=== PATIENT | male | born 1935 | race Caucasian/White ===

== ENCOUNTER 2019-03-15 11:57 | Inpatient (IN) | payer OTHER, SELFPAY ==
[2019-03-15] VITALS (8 sets, daily range): BP systolic 108–161; BP diastolic 64–86; PULSE 76–118; RESP 16–24; TEMP 36–36.5; O2SAT 91–96; BMI 16.5
--- NOTE | 2019-03-15 12:22 | XR_ITS ---
WS: [id number] Portable AP upright chest, 03/15/2019 Clinical Data: SOB Comparison: Portable chest, 05/04/2016. Findings: No nodules, masses or effusions are seen. The heart is normal. The pulmonary vascularity is not increased. There is patchy opacity in the right lower lobe with a possible small loculated right effusion. The left lung is clear. The diaphragms are flattened. The aortic arch and descending aorta are tortuous. XR/XR chest 1V portable [id number] Impression: 1. Patchy opacity in right lower lobe most consistent with pneumonia. 2. Hyperinflation.
--- NOTE | 2019-03-15 12:49 | ED_ITS ---
Entered by Howie Jenkins, acting as scribe for Marky Maier DO HPI - SOB/Dyspnea General: Chief Complaint: Shortness of Breath/Dyspnea Stated Complaint: low sats Time Seen by Provider: 03/15/19 12:53 History of Present Illness: HPI Narrative: 83 yo male presents with shortness of breath, he was seen at [place] today and they noticed that his o2 sats were low. Pt states that this has been going on for about 3 weeks and it has recently gotten worse. Pt states that his inhaler prescription was recently changed. MD elicited complaint: shortness of breath Timing: progressively worsening Severity: moderate Exacerbating factors: exertion and movement Relieving factors: oxygen and rest Associated symptoms: Deny abdominal pain, chest pain, dizziness, extremity pain, fever(s), nausea, orthopnea, palpitations, polydipsia, polyuria, syncope or vomiting Treatment prior to arrival: oxygen Review of Systems Const: Reports: fatigue and malaise; Denies: fever, chills or body aches Eyes: Denies: change in vision or blurry vision ENMT: Denies: throat pain, oral sores/lesions, dental pain, nasal discharge or nasal congestion Card: Denies: chest pain, palpitations, irregular heart rhythm, edema, syncope, shortness of breath on exertion, shortness of breath when lying down or leg pain with exertion Resp: Reports: shortness of breath and productive cough; Denies: non-productive cough or wheezing GI: Denies: abdominal pain, nausea, vomiting, vomiting blood, coffee grounds in vomit, difficulty swallowing, heartburn/indigestion, diarrhea, constipation, cramping, blood in stool or black tarry stool : Denies: flank pain, difficulty urinating, painful urination, urinary frequency, urinary urgency, urinary incontinence or blood in urine Musc: Denies: neck pain, back pain, extremity pain, extremity swelling, joint pain or joint swelling Skin/Breast: Denies: rash, itching or redness Neuro: Denies: headache, numbness in extremities, weakness in extremities, changes in sensation, lack of coordination, difficulty walking, frequent falls, dizziness, vertigo or confusion Psych: Denies: anxiety, depression, loss of interest, visual hallucinations, auditory hallucinations, suicidal ideation or homicidal ideation Endo: Denies: excessive urination, excessive thirst, tired all the time or cold intolerance Alex/Lymph: Denies: easy bruising, easy bleeding, petechiae, enlarged lymph nodes or tender lymph nodes PFSH ED PFSH: Statuses (acute, chronic, etc) shown below reflect problem list status as previously entered and may not be historically accurate Medical History (Updated 03/22/19 @ 08:43 by Marky Maier DO) Abdominal aortic aneurysm (Acute) BPH (benign prostatic hyperplasia) (Acute) COPD (chronic obstructive pulmonary disease) (Acute) Muscular deconditioning (Acute ~03/15/19) Protein calorie malnutrition (Acute) Right lower lobe pneumonia (Acute) Skin cancer (Acute) Skin graft (allograft) (autograft) failure (Acute) Surgical History (Updated 03/15/19 @ 15:49 by Alfred Durán MD) H/O hernia repair (Acute) Family History (Updated 03/15/19 @ 15:50 by Alfred Durán MD) Father Cancer Prostate cancer Son Cancer Non-small cell lung cancer Social History (Updated 03/15/19 @ 15:50 by Alfred Durán MD) Smoking and tobacco status: former smoker Alcohol intake: former Caregiver/support person: Yes Lives independently: No Household members: family Physical Exam Const: COMMON NORMALS: average body habitus, oriented x3 and alert GENERAL APPEARANCE: cooperative and comfortable ORIENTATION/CONSCIOUSNESS: Yes awake, Yes oriented to person and Yes oriented to place HENMT: COMMON NORMALS: normocephalic, head/scalp atraumatic, EAC's normal, TM's normal bilaterally, external nose normal, moist oral mucous membranes and oropharynx normal HEAD & SCALP: normocephalic and atraumatic NOSE: external nose normal EXTERNAL AUDITORY CANAL: EAC's normal TYMPANIC MEMBRANE: TM's normal bilaterally MOUTH: oral and palatal mucosa normal, lip normal and tongue normal THROAT: posterior oropharynx normal and tonsils normal Neck/C-Spine: COMMON NORMALS: full ROM, no lymphadenopathy, supple, no meningeal signs and thyroid normal THYROID: thyroid normal and asymmetrical Lymph: LYMPHATIC: no lymphadenopathy noted Resp: EFFORT & INSPECTION: Yes respiratory distress (mild) AUSCULTATION: rhonchi throughout, wheezes throughout and diminished lung sounds Cardio: COMMON NORMALS: regular rate and regular rhythm RATE: regular rate RHYTHM: regular rhythm HEART SOUNDS: no murmurs GI: COMMON NORMALS: normal to inspection, nondistended, normoactive bowel sounds, soft to palpation and no hepatosplenomegaly PALPATION: Yes soft and Yes no hepatosplenomegaly : COMMON NORMALS: Yes no CVA tenderness BLADDER/KIDNEY EXAM: Yes no CVA tenderness Back/Pelvis: COMMON NORMALS: no CVA tenderness LUMBAR SPINE/LOWER BACK: Yes normal to inspection Extremity: COMMON NORMALS: no clubbing, cyanosis or edema, no calf tenderness and no pedal edema Neuro: COMMON NORMALS: oriented x3 SENSORIUM/ORIENTATION: Yes alert, Yes oriented to person and Yes oriented to place MENINGEAL SIGNS: Yes no meningeal signs Skin: COMMON NORMALS: no rashes or lesions noted and skin turgor normal GENERAL SKIN EXAM: no rashes or lesions noted and turgor normal Course Vital Signs: Vital signs: Vital Signs Temperature 97.9 F 03/19/19 15:18 Pulse Rate 102 H 03/19/19 16:03 Respiratory Rate 20 H 03/19/19 16:03 Blood Pressure 102/69 03/19/19 15:18 Pulse Oximetry 94 03/19/19 16:03 MDM - SOB/Dyspnea Lab Data: Labs: Lab Results 03/15/19 03/15/19 03/15/19 Range/Units 12:58 12:58 12:58 WBC 9.2 (4.0-10.0) 10^3/ uL RBC 5.23 (4.1-5.3) 10^6/u L Hgb 15.6 (11.7-16.6) g/dL Hct 47.1 (42.0-52.0) % MCV 90.1 (80-94) fL MCH 29.8 (28.0-34.0) pg MCHC 33.1 (30.0-36.0) g/dL RDW 12.4 (12.1-15.1) % Plt Count 485 H (130-400) 10^3/c mm MPV 10.2 (7.4-10.4) fL Neut % (Auto) 78.1 % Lymph % (Auto) 10.3 % Mchenry % (Auto) 8.3 % Eos % (Auto) 1.7 % Baso % (Auto) 0.5 % Neut # (Auto) 7.2 (1.8-7.7) 10^3/u L Lymph # (Auto) 1.0 (0.8-4.8) 10^3/u L Mchenry # (Auto) 0.8 (0.2-0.9) 10^3/u L Eos # (Auto) 0.2 (0.0-0.8) 10^3/u L Baso # (Auto) 0.1 (0.0-0.1) 10^3/u L Nucleated RBC % (a uto) 0 % Nucleated RBCs # 0.0 /100WBC Sodium 137 (136-145) mmol/L Potassium 4.0 (3.5-5.1) mmol/L Chloride 96 L (98-107) mmol/L Carbon Dioxide 27 (22-29) mmol/L Anion Gap 18.0 (5-19) BUN 12 (8-23) mg/dL Creatinine 0.9 (0.7-1.2) mg/dL Glucose 103 (74-106) mg/dL Lactate (0.5-2.2) mmol/L Calcium 10.1 (8.8-10.2) mg/Dl Total Bilirubin 0.7 (0.15-1.2) mg/dL AST 26 (0-40) U/L ALT 28 (0-41) U/L Alkaline Phosphata se 67 (40-130) IU/L Troponin T Baselin e 38 H (0-15) ng/mL NT-Pro-B Natriuret Pep 468 H (0-450) pg/mL Total Protein 7.1 (6.6-8.7) g/dL Albumin 4.2 (3.5-5.2) g/dL Globulin 2.9 (1.3-4.6) g/dL Influenza Type A A g (Negative) POC Influenza B Ag (Negative) 03/15/19 03/15/19 Range/Units 13:00 13:20 WBC (4.0-10.0) 10^3/ uL RBC (4.1-5.3) 10^6/u L Hgb (11.7-16.6) g/dL Hct (42.0-52.0) % MCV (80-94) fL MCH (28.0-34.0) pg MCHC (30.0-36.0) g/dL RDW (12.1-15.1) % Plt Count (130-400) 10^3/c mm MPV (7.4-10.4) fL Neut % (Auto) % Lymph % (Auto) % Mchenry % (Auto) % Eos % (Auto) % Baso % (Auto) % Neut # (Auto) (1.8-7.7) 10^3/u L Lymph # (Auto) (0.8-4.8) 10^3/u L Mchenry # (Auto) (0.2-0.9) 10^3/u L Eos # (Auto) (0.0-0.8) 10^3/u L Baso # (Auto) (0.0-0.1) 10^3/u L Nucleated RBC % (a uto) % Nucleated RBCs # /100WBC Sodium (136-145) mmol/L Potassium (3.5-5.1) mmol/L Chloride (98-107) mmol/L Carbon Dioxide (22-29) mmol/L Anion Gap (5-19) BUN (8-23) mg/dL Creatinine (0.7-1.2) mg/dL Glucose (74-106) mg/dL Lactate 2.0 (0.5-2.2) mmol/L Calcium (8.8-10.2) mg/Dl Total Bilirubin (0.15-1.2) mg/dL AST (0-40) U/L ALT (0-41) U/L Alkaline Phosphata se (40-130) IU/L Troponin T Baselin e (0-15) ng/mL NT-Pro-B Natriuret Pep (0-450) pg/mL Total Protein (6.6-8.7) g/dL Albumin (3.5-5.2) g/dL Globulin (1.3-4.6) g/dL Influenza Type A A g Negative (Negative) POC Influenza B Ag Negative (Negative) Discharge Plan Discharge Patient Disposition: Admitted As Inpatient Admit Provider: Alfred Durán Clinical Impression: COPD (chronic obstructive pulmonary disease), Right lower lobe pneumonia, Abdominal aortic aneurysm, Protein calorie malnutrition Condition: Stable Discharge Orders: Discharge Order (Routine); Ordered 03/19/19 Ordered By: Alfred Durán Discharge Diet: Cardiac Discharge Activity: Resume usual activity Interventions: ED Discharge Assessment Last Done: 03/15/19 18:16 Discharge Date/Time: 03/15/19 18:32 Coding Level of Care Code ED 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
[2019-03-15 13:22] LABS: Basophils # 0.1 10^3/uL (0.0-0.1); Basophils % 0.5 %; Eosinophils # 0.2 10^3/uL (0.0-0.8); Eosinophils % 1.7 %; Hematocrit 47.1 % (42.0-52.0); Hemoglobin 15.6 g/dL (11.7-16.6); Lymphocytes % 10.3 %; Mean Corpuscular HGB Conc 33.1 g/dL (30.0-36.0); Mean Corpuscular Hemoglobin 29.8 pg (28.0-34.0); Mean Corpuscular Volume 90.1 fL (80-94); Mean Platelet Volume 10.2 fL (7.4-10.4); Monocytes # 0.8 10^3/uL (0.2-0.9); Monocytes % 8.3 %; Neutrophils # 7.2 10^3/uL (1.8-7.7); Neutrophils % 78.1 %; Nucleated Red Blood Cells % 0 %; Platelet Count 485 10^3/cmm (130-400); Red Blood Count 5.23 10^6/uL (4.1-5.3); Red Cell Distribution Width 12.4 % (12.1-15.1); White Blood Count 9.2 10^3/uL (4.0-10.0)
[2019-03-15 13:47] LABS: Alanine Aminotransferase 28 U/L (0-41); Albumin Level 4.2 g/dL (3.5-5.2); Alkaline Phosphatase 67 IU/L (40-130); Aspartate Amino Transferase 26 U/L (0-40); Blood Urea Nitrogen 12 mg/dL (8-23); Calcium 10.1 mg/Dl (8.8-10.2); Carbon Dioxide 27 mmol/L (22-29); Chloride 96 mmol/L (98-107); Globulin 2.9 g/dL (1.3-4.6); Glucose 103 mg/dL (74-106); NT Pro B Type Natriuretic Pept 468 pg/mL (0-450); Sodium 137 mmol/L (136-145); Total Bilirubin 0.7 mg/dL (0.15-1.2); Total Protein 7.1 g/dL (6.6-8.7)
[2019-03-15 13:57] LABS: Influenza A by IFA Negative (Negative); Influenza B by IFA Negative (Negative)
[2019-03-15 14:05] LABS: Troponin(5th) Baseline 38 ng/mL (0-15)
[2019-03-15] MEDS: cefTRIAXone 1,000 MG in sodium chloride 0.9% (plus) 50 ML 100 MG IV (14:12)
[2019-03-15] MEDS: azithromycin 500 MG in sodium chloride 0.9% 250 ML 250 MG IV (14:14)
--- NOTE | 2019-03-15 14:22 | ECG_ITS ---
Measurements Intervals [place] Rate: 114 P: 84 CT: 132 QRS: 80 QRSD: 66 T: 85 QT: 318 QTc: [address] & T-WAVE ABNORMALITY Compared to ECG 05/05/2016 05:36:05 T-wave abnormality now present Sinus rhythm no longer present Electronically Signed On 03-15-2019 17:11:38 HEALTH EVALUATOR by Linda Wynn M.D. [id number]
--- NOTE | 2019-03-15 15:42 | P.HP_ITS ---
Providers/Chief Complaint Primary Care Provider: Ney Rea Chief Complaint: low sats History of Present Illness Abel Cool is a 83 year old male with a past medical history of COPD uses 2 L oxygen at baseline, quit smoking more than 40 years ago, has a history of abdominal aortic aneurysm, enlarged prostate, no others other significant medical history who presents to the emergency room from the [place] due to complaints of shortness of breath and increased oxygen requirements. Patient states that for the past few weeks, he is felt more short of breath, has a productive cough of yellow-green sputum, chills, no fevers. Patient states that at baseline he can walk less than 50 feet before getting short of breath, more recently just getting up to use the bathroom he feels short of breath, symptoms improved with rest, he has had a an increased productive sputum yellow-green sputum, no known sick contacts, does not know if he had a flu vaccine, is not sure if he had the pneumonia vaccine. Denies any recent antibiotics or steroids use. Patient states that he has had roughly a 30 pound weight loss over the last few years, has had a poor appetite, fatigue, malaise. No hemoptysis, no hematemesis, no bloody stools, no black stools, bloody urine, patient states that he has a known history of BPH does not take any medications, has post void dribbling, incomplete emptying, weak stream. Denies hematuria. Does have a history of prostate cancer in his father. Patient states that a month ago his 53-year-old son from non-small lung cancer, he lives with his son, so he saw his son through his cancer, denies feeling down depressed or sad, does have a poor appetite. Patient's grandson is at bedside, states that he just not been eating well, has been more fatigued, more short of breath. Patient lives with his oldest son, states that he saw Dr. Prado a day ago, his abdominal aortic aneurysm has enlarged, Dr. Prado is planning on doing surgery sometime in March, he has a repeat CT of his abdomen in March 27, 2018. Review of Systems Const: Reports: chills, change in appetite, change in weight, fatigue and malaise; Denies: fever Eyes: Denies: change in vision ENMT: Denies: throat pain or nasal discharge Card: Reports: shortness of breath on exertion; Denies: chest pain, palpitations, lightheadedness, syncope or shortness of breath when lying down Resp: Reports: shortness of breath and productive cough GI: Denies: abdominal pain, nausea or vomiting : Denies: difficulty urinating, painful urination, urinary frequency or urinary urgency Musc: Denies: neck pain or extremity pain Skin/Breast: Denies: rash or redness Neuro: Denies: headache, numbness in extremities, weakness in extremities, changes in sensation, lack of coordination or dizziness Psych: Denies: anxiety or depression Endo: Reports: tired all the time; Denies: excessive urination Alex/Lymph: Denies: easy bruising Medications/Allergies Allergies Allergy/AdvReac Type Severity Reaction Status Date / Time sulfamethoxazole Allergy Severe ALGY-Anaphy Verified 03/15/19 12:14 [From Bactrim] laxis trimethoprim [From Bactrim] Allergy Severe ALGY-Anaphy Verified 03/15/19 12:14 laxis Additional Medication Information Additional Medication Information: Patient takes Spiriva at home PFSH Acute PFSH: Statuses (acute, chronic, etc) shown below reflect problem list status as previously entered and may not be historically accurate Medical History (Updated 03/15/19 @ 15:49 by Alfred Durán MD) Abdominal aortic aneurysm (Acute) BPH (benign prostatic hyperplasia) (Acute) COPD (chronic obstructive pulmonary disease) (Acute) Muscular deconditioning (Acute ~03/15/19) Protein calorie malnutrition (Acute) Right lower lobe pneumonia (Acute) Skin cancer (Acute) Skin graft (allograft) (autograft) failure (Acute) Surgical History (Updated 03/15/19 @ 15:49 by Alfred Durán MD) H/O hernia repair (Acute) Family History (Updated 03/15/19 @ 15:50 by Alfred Durán MD) Father Cancer Prostate cancer Son Cancer Non-small cell lung cancer Social History (Updated 03/15/19 @ 15:50 by Alfred Durán MD) Smoking and tobacco status: former smoker Alcohol intake: former Substance/Drug Use: never Caregiver/support person: Yes Lives independently: No Household members: family Vitals/I&O/Wt Last Vital Signs Temp 97.3 F L 03/15/19 12:05 Pulse 103 H 03/15/19 15:00 Resp 24 H 03/15/19 15:00 BP 115/65 03/15/19 15:00 Pulse Ox 95 03/15/19 15:00 Weight last 48 hrs Weight 52.163 kg Physical Exam Const: COMMON NORMALS: no apparent distress and oriented x3 GENERAL APPEARANCE: cooperative, comfortable and frail appearing NUTRITIONAL APPEARANCE: cachectic ORIENTATION/CONSCIOUSNESS: Yes awake, Yes oriented to person, Yes oriented to place and Yes oriented to time HENMT: COMMON NORMALS: normocephalic MOUTH: oral and palatal mucosa normal Eye: COMMON NORMALS: PERRL and EOMs intact bilaterally Neck/C-Spine: COMMON NORMALS: full ROM, no lymphadenopathy, supple and no JVD Lymph: LYMPHATIC: no lymphadenopathy noted Chest: COMMONS NORMALS: inspection of chest normal Resp: COMMON NORMALS: normal respiratory effort, no retractions and no use of accessory muscles AUSCULTATION: breath sounds absent on the right Cardio: COMMON NORMALS: no JVD, S1 normal heart sound, S2 normal heart sound, no gallops, no clicks, no murmurs and no rub RATE: tachycardic GI: COMMON NORMALS: normal to inspection, nondistended, normoactive bowel sounds, soft to palpation, non-tender, no hepatosplenomegaly, no masses and no b ruits Extremity: COMMON NORMALS: full ROM, no clubbing, cyanosis or edema and no pedal edema Neuro: COMMON NORMALS: oriented x3, CN's II-XII intact bilaterally, moves all extremities and no focal motor deficits Psych: COMMON NORMALS: mental status grossly normal, thought process normal, cooperative, affect normal and speech normal Skin: COMMON NORMALS: no rashes or lesions noted Data Micro: Micro: Microbiology 03/15/19 13:20 Blood Culture - Pr eliminary Blood SPECIMEN [facility] 03/15/19 13:00 Blood Culture - Pr eliminary Blood SPECIMEN [facility] Imaging^: CXR: My impression: cxr Patchy opacity in right lower lobe most consistent with pneumonia. A&P Assessment and plan (1) Right lower lobe pneumonia: -Right lower lobe pneumonia, cough, shortness of breath, using 2 L, respiratory rate 20, pulse 100-1 20, lactic acid within normal limits, no significant leukocytosis -No clinical signs of respiratory distress -Has signs of Sirs Plan: -IV hydration -Nebulizer treatments every 4, every 2 as needed -Azithromycin and Rocephin -Monitor respiratory status closely -Blood cultures Status: Acute Code(s): J18.9 - Pneumonia, unspecified organism (2) COPD (chronic obstructive pulmonary disease): -As patient states that he has been more short of breath with exertion for the past past few weeks, will treat for COPD exacerbation -Solu-Medrol 125, after that 40 mg every 24 Status: Acute Code(s): J44.9 - Chronic obstructive pulmonary disease, unspecified (3) Muscular deconditioning: -Severe muscular deconditioning -Reports 30 poundweight loss for the last year -PT OT Status: Acute Code(s): R29.898 - Other symptoms and signs involving the musculoskeletal system (4) Protein calorie malnutrition: -Nutrition consult Status: Acute Code(s): E46 - Unspecified protein-calorie malnutrition (5) BPH (benign prostatic hyperplasia): Will add Flomax Status: Acute Code(s): N40.0 - Benign prostatic hyperplasia without lower urinary tract symptoms (6) Abdominal aortic aneurysm: Plan for surgery in March by Dr. Prado Currently denies abdominal pain Status: Acute Code(s): I71.4 - Abdominal aortic aneurysm, without rupture Attestations Medical Necessity Statement*: Patient requires hospitalization, greater than 2 midnights, inpatient, for pneumonia Coding Level of Care Code Acute Wheel Setter for Chg Fwd Diagnoses Right lower lobe pneumonia J18.9 COPD (chronic obstructive pulmonary disease) J44.9 Muscular deconditioning R29.898 Protein calorie malnutrition E46 BPH (benign prostatic hyperplasia) N40.0 Abdominal aortic aneurysm I71.4
[2019-03-15] MEDS: lactated ringers 500 ML 999 ML IV (15:50)
--- NOTE | 2019-03-15 18:22 | ECG_ITS ---
Measurements Intervals [place] Rate: 87 P: 43 [place]: 168 QRS: 66 QRSD: 88 T: 137 QT: 384 QTc: 463 SINUS RHYTHM POSSIBLE LEFT ATRIAL ENLARGEMENT [-0.1mV P WAVE IN V1/V2] LEFT VENTRICULAR HYPERTROPHY AND ST-T CHANGE [VOLTAGE CRITERIA PLUS ST/T ABNORMALITY] Compared to ECG 05/05/2016 05:36:05 Left ventricular hypertrophy now present ST (T wave) deviation now present Electronically Signed On 03-15-2019 17:11:29 SHELLS INSPECTOR by Linda Wynn M.D. [id number]
[2019-03-15] MEDS: lactated ringers 1,000 ML 100 ML IV (19:55)
[2019-03-15] MEDS: enoxaparin 40 mg/0.4 mL Syringe SUBCUT (20:01)
[2019-03-15 22:12] LABS: Troponin(5th) Baseline 36 ng/mL (0-15)
[2019-03-16] VITALS (21 sets, daily range): BP systolic 99–147; BP diastolic 43–63; PULSE 73–104; RESP 16–24; TEMP 36.4–36.7; O2SAT 93–99
[2019-03-16] MEDS: ipratropium-albuterol 3 mL Neb INHALATION ×7 (00:30→23:18)
[2019-03-16 02:05] LABS: Troponin 5 2HR 31.02 ng/mL (0-15)
[2019-03-16 02:16] LABS: Troponin 5 2HR Delta -4.98 ABS# (0-10)
[2019-03-16 03:29] LABS: Alanine Aminotransferase 21 U/L (0-41); Albumin Level 3.4 g/dL (3.5-5.2); Alkaline Phosphatase 53 IU/L (40-130); Anion Gap 14.9 (5-19); Aspartate Amino Transferase 21 U/L (0-40); Blood Urea Nitrogen 13 mg/dL (8-23); Calcium 9.3 mg/Dl (8.8-10.2); Carbon Dioxide 26 mmol/L (22-29); Chloride 101 mmol/L (98-107); Globulin 1.7 g/dL (1.3-4.6); Glucose 171 mg/dL (74-106); Magnesium 1.6 mg/dL (1.7-2.3); Phosphorus 2.2 mg/dL (2.5-4.5); Potassium 4.9 mmol/L (3.5-5.1); Sodium 137 mmol/L (136-145); Total Bilirubin 0.4 mg/dL (0.15-1.2); Total Protein 5.1 g/dL (6.6-8.7)
[2019-03-16 03:32] LABS: Troponin 5 6HR 26.83 ng/L (0-15)
[2019-03-16 03:35] LABS: Troponin 5 6HR Delta 10.83 ng/L (0-12)
[2019-03-16 03:45] LABS: Basophils % 0.3 %; Hematocrit 40.4 % (42.0-52.0); Hemoglobin 13.4 g/dL (11.7-16.6); Lymphocytes # 0.3 10^3/uL (0.8-4.8); Mean Corpuscular HGB Conc 33.2 g/dL (30.0-36.0); Mean Corpuscular Hemoglobin 30.9 pg (28.0-34.0); Mean Corpuscular Volume 93.3 fL (80-94); Mean Platelet Volume 10.6 fL (7.4-10.4); Neutrophils # 3.5 10^3/uL (1.8-7.7); Neutrophils % 90.1 %; Nucleated Red Blood Cells % 0 %; Platelet Count 379 10^3/cmm (130-400); Red Blood Count 4.33 10^6/uL (4.1-5.3); Red Cell Distribution Width 12.3 % (12.1-15.1); White Blood Count 3.9 10^3/uL (4.0-10.0)
[2019-03-16] MEDS: lactated ringers 1,000 ML 100 ML IV ×2 (05:01→16:52)
--- NOTE | 2019-03-16 07:00 | XR_ITS ---
WS: [id number] Portable AP upright chest, 03/16/2019 Clinical Data: sob Comparison: Portable chest, 03/15/2019 Findings: No nodules, masses or effusions are seen. The heart is normal. The pulmonary vascularity is not increased. The patchy right lower lobe opacity remains unchanged. Monitor leads on the chest wal l. The aortic arch shows calcification and tortuosity. The diaphragms are flattened. XR/XR chest 1V portable [id number] Impression: 1. No change in probable right lower lobe pneumonia. 2. Atherosclerosis and hyperinflation.
[2019-03-16] MEDS: aspirin 81 mg EC Tablet PO (09:47)
[2019-03-16] MEDS: tamsulosin 0.4 mg Capsule PO (09:47)
--- NOTE | 2019-03-16 11:32 | PM.PN ---
Subjective Subjective: Interval history: This morning patient had a shower, did is here, is lying comfortably in bed, stating he is doing much better this morning, breathing improved, no fevers, chills, chest pain, shortness of breath, patient's family is at bedside Vitals/I&O/Wt Last Vital Signs Temp 97.6 F 03/16/19 07:36 Pulse 85 03/16/19 11:26 Resp 17 03/16/19 11:21 BP 113/63 03/16/19 07:36 Pulse Ox 95 03/16/19 11:21 03/15/19 03/16/19 03/16/19 22:59 06:59 14:59 Intake Total 990 / 1040 960 / 2000 360 / 360 Output Total 300 / 300 650 / 950 300 / 300 Balance 690 / 740 310 / 1050 60 / 60 Weight last 48 hrs Weight 52.163 kg Physical Exam Const: COMMON NORMALS: no apparent distress and oriented x3 GENERAL APPEARANCE: cooperative, comfortable and frail appearing NUTRITIONAL APPEARANCE: cachectic ORIENTATION/CONSCIOUSNESS: Yes awake, Yes oriented to person, Yes oriented to place and Yes oriented to time Neck/C-Spine: COMMON NORMALS: no JVD Lymph: LYMPHATIC: no lymphadenopathy noted Chest: COMMONS NORMALS: inspection of chest normal Resp: COMMON NORMALS: normal respiratory effort, no retractions, no use of accessory muscles and clear to auscultation bilaterally AUSCULTATION: clear to auscultation bilaterally Cardio: COMMON NORMALS: no JVD, S1 normal heart sound, S2 normal heart sound, no gallops, no clicks, no murmurs and no rub RATE: tachycardic HEART SOUNDS: S1 normal and S2 normal GI: COMMON NORMALS: normal to inspection, nondistended, normoactive bowel sounds, soft to palpation, non-tender, no hepatosplenomegaly, no masses and no bruits PALPATION: Yes soft and Yes no hepatosplenomegaly Extremity: COMMON NORMALS: full ROM, no clubbing, cyanosis or edema and no pedal edema Neuro: COMMON NORMALS: oriented x3 SENSORIUM/ORIENTATION: Yes oriented to person, Yes oriented to place and Yes oriented to time Psych: COMMON NORMALS: mental status grossly normal, thought process normal, cooperative, affect normal and speech normal SPEECH: Yes normal speech THOUGHT PROCESS: normal thought process Skin: COMMON NORMALS: no rashes or lesions noted GENERAL SKIN EXAM: no rashes or lesions noted Data Micro: Micro: Microbiology 03/15/19 13:20 Blood Culture - Pr eliminary Blood SPECIMEN [facility] 03/15/19 13:00 Blood Culture - Pr eliminary Blood SPECIMEN [facility] A&P Assessment and plan (1) Right lower lobe pneumonia: -Right lower lobe pneumonia, cough, shortness of breath, using 2 L, respiratory rate 20, pulse 100-1 20, lactic acid within normal limits, no significant leukocytosis -No clinical signs of respiratory distress -Has signs of Sirs Plan: -Decrease IV fluid to 50 cc/h -Nebulizer treatments every 4, every 2 as needed -Azithromycin and Rocephin -Monitor respiratory status closely -Blood cultures Status: Acute Code(s): J18.9 - Pneumonia, unspecified organism (2) COPD (chronic obstructive pulmonary disease): -As patient states that he has been more short of breath with exertion for the past past few weeks, will treat for COPD exacerbation -Solu-Medrol 125, after that 40 mg every 24 Status: Acute Code(s): J44.9 - Chronic obstructive pulmonary disease, unspecified (3) Muscular deconditioning: -Severe muscular deconditioning -Reports 30 poundweight loss for the last year -PT OT Status: Acute Code(s): R29.898 - Other symptoms and signs involving the musculoskeletal system (4) Protein calorie malnutrition: -Nutrition consult Status: Acute Code(s): E46 - Unspecified protein-calorie malnutrition (5) BPH (benign prostatic hyperplasia): Will add Flomax Status: Acute Code(s): N40.0 - Benign prostatic hyperplasia without lower urinary tract symptoms (6) Abdominal aortic aneurysm: Plan for surgery in March by Dr. Prado Currently denies abdominal pain Status: Acute Code(s): I71.4 - Abdominal aortic aneurysm, without rupture Attestations Medical Necessity Statement*: Patient requires hospitalization for respiratory failure secondary to pneumonia Coding Level of Care Code Acute Wall Crane Operator for Chg Fwd Diagnoses Right lower lobe pneumonia J18.9 COPD (chronic obstructive pulmonary disease) J44.9 Muscular deconditioning R29.898 Protein calorie malnutrition E46 BPH (benign prostatic hyperplasia) N40.0 Abdominal aortic aneurysm I71.4
[2019-03-16] MEDS: phosphorus 250 mg Tablet PO (11:53)
[2019-03-16] MEDS: magnesium oxide 400 mg tablet PO (11:54)
--- NOTE | 2019-03-16 12:53 | PC.CHAP ---
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 [] Patient/Family/Request visit [] Outpatient visit [] Follow-up visit [] Physician referral [] Code/Alert [] Routine visit [] Staff referral [] Actively dying [] Patient sleeping [] Family support [] [] Out of room [] Palliative care [] [] Receiving care in room [] Pre-surgical visit [] Trauma [] Long length of stay [] ICU visit [] Other: Relational/Emotional Strength [] Patient feels connected with others/family/visitors/staff [] Distress [] Loneliness/isolation [] Abandonment Spirituality of Patient [] Person of Simi [] Attends Sikh of their Simi [] Believes in Prayer [] Reads Bible or Presybeterian materials [] There are Spiritual issues to be addressed Visual Aid Expert Interventions [] Prayer [] Active listening [] Non-anxious presence [] Spiritual/emotional support [] Crisis/trauma care [] Spiritual counseling [] Bereavement support [] Provided bereavement packet [] Provided Bible/devotional materials [] Provided toy/stuffed animal, coloring book to patient or family member [] Completed spiritual assessment [] Provided Communion [] Anointing/[place] [] Salvation [] Other: Impact on Illness or Injury [] Angry [] Fearful [] Anxious [] Often cries [] Exhaustion [] Unable to work [] Unable to attend latter-day [] Unable to walk/stand [] Unable to read [] Unable to drive [] Unable to eat/drink [] Unable to sleep [] Unable to be with family [] Other: Summary Patient declined visit; Deandre Pisano Time spent with patient 2-minutes
[2019-03-16] MEDS: cefTRIAXone 1,000 MG in sodium chloride 0.9% (plus) 50 ML 100 MG IV (15:59)
[2019-03-16] MEDS: azithromycin 500 MG in sodium chloride 0.9% 250 ML 250 MG IV (16:51)
[2019-03-16] MEDS: enoxaparin 40 mg/0.4 mL Syringe SUBCUT (20:20)
[2019-03-17] VITALS (18 sets, daily range): BP systolic 99–158; BP diastolic 55–82; PULSE 70–101; RESP 16–20; TEMP 36.3–36.6; O2SAT 92–97
[2019-03-17] MEDS: ipratropium-albuterol 3 mL Neb INHALATION ×6 (03:18→23:56)
[2019-03-17 05:54] LABS: Basophils % 0.1 %; Hematocrit 37.2 % (42.0-52.0); Hemoglobin 12.1 g/dL (11.7-16.6); Lymphocytes # 0.6 10^3/uL (0.8-4.8); Lymphocytes % 6.6 %; Mean Corpuscular HGB Conc 32.5 g/dL (30.0-36.0); Mean Corpuscular Hemoglobin 29.7 pg (28.0-34.0); Mean Corpuscular Volume 91.4 fL (80-94); Mean Platelet Volume 10.4 fL (7.4-10.4); Monocytes # 0.6 10^3/uL (0.2-0.9); Monocytes % 6.3 %; Neutrophils # 7.5 10^3/uL (1.8-7.7); Neutrophils % 86.3 %; Nucleated Red Blood Cells % 0 %; Platelet Count 407 10^3/cmm (130-400); Red Blood Count 4.07 10^6/uL (4.1-5.3); Red Cell Distribution Width 12.3 % (12.1-15.1); White Blood Count 8.7 10^3/uL (4.0-10.0)
[2019-03-17 06:18] LABS: Alanine Aminotransferase 21 U/L (0-41); Albumin Level 3.3 g/dL (3.5-5.2); Alkaline Phosphatase 47 IU/L (40-130); Anion Gap 15.2 (5-19); Aspartate Amino Transferase 28 U/L (0-40); Blood Urea Nitrogen 12 mg/dL (8-23); Calcium 9.2 mg/Dl (8.8-10.2); Carbon Dioxide 26 mmol/L (22-29); Chloride 99 mmol/L (98-107); Globulin 1.9 g/dL (1.3-4.6); Glucose 171 mg/dL (74-106); Magnesium 1.7 mg/dL (1.7-2.3); Phosphorus 2.8 mg/dL (2.5-4.5); Potassium 4.2 mmol/L (3.5-5.1); Sodium 136 mmol/L (136-145); Total Bilirubin 0.2 mg/dL (0.15-1.2); Total Protein 5.2 g/dL (6.6-8.7)
[2019-03-17] MEDS: tamsulosin 0.4 mg Capsule PO (09:45)
[2019-03-17] MEDS: aspirin 81 mg EC Tablet PO (09:45)
--- NOTE | 2019-03-17 17:32 | PM.PN ---
Subjective Subjective: Interval history: This morning patient states his breathing has improved, is still on 2 L, still states that he he requires up to 3 L with exertion, feels more short of breath with exertion, feels weak, has a productive cough, no fevers, no chills, no nausea, no vomiting Medications: Medication Review Details: Patient takes Spiriva at home Vitals/I&O/Wt Last Vital Signs Temp 97.5 F L 03/17/19 15:47 Pulse 76 03/17/19 16:03 Resp 17 03/17/19 15:58 BP 158/82 03/17/19 15:47 Pulse Ox 96 03/17/19 15:58 03/17/19 03/17/19 03/17/19 06:59 14:59 22:59 Intake Total 506.667 / 3430.000 240 / 240 Output Total 625 / 1475 400 / 400 Balance -118.333 / 1955.000 -160 / -160 Physical Exam Eye: COMMON NORMALS: PERRL and EOMs intact bilaterally PUPIL: Yes PERRL Neck/C-Spine: COMMON NORMALS: no JVD Chest: COMMONS NORMALS: inspection of chest normal Resp: COMMON NORMALS: normal respiratory effort, no retractions, no use of accessory muscles and clear to auscultation bilaterally AUSCULTATION: clear to auscultation bilaterally and breath sounds absent on the right Cardio: COMMON NORMALS: no JVD, S1 normal heart sound, S2 normal heart sound, no gallops, no clicks, no murmurs and no rub RATE: tachycardic HEART SOUNDS: S1 normal and S2 normal GI: COMMON NORMALS: normal to inspection, nondistended, normoactive bowel sounds, soft to palpation, non-tender, no hepatosplenomegaly, no masses and no bruits PALPATION: Yes soft and Yes no hepatosplenomegaly Data Micro: Micro: Microbiology 03/15/19 20:05 Gram Stain - Final Sputum - Endotrac heal Tube Aspirate Sputum Culture - P reliminary 03/15/19 13:20 Blood Culture - Pr eliminary Blood NEGATIVE TO CARLOS E 03/15/19 13:00 Blood Culture - Pr eliminary Blood NEGATIVE TO CARLOS E A&P Assessment and plan (1) Right lower lobe pneumonia: -Right lower lobe pneumonia, cough, shortness of breath, using 2 L, respiratory rate 20, pulse 100-1 20, lactic acid within normal limits, no significant leukocytosis -No clinical signs of respiratory distress Plan: -Nebulizer treatments every 4, every 2 as needed -Azithromycin and Rocephin -Monitor respiratory status closely -Blood cultures Status: Acute Code(s): J18.9 - Pneumonia, unspecified organism (2) COPD (chronic obstructive pulmonary disease): -As patient states that he has been more short of breath with exertion for the past past few weeks, will treat for COPD exacerbation -Solu-Medrol 125, after that 40 mg every 24 Status: Acute Code(s): J44.9 - Chronic obstructive pulmonary disease, unspecified (3) Muscular deconditioning: -Severe muscular deconditioning -Reports 30 poundweight loss for the last year -PT OT Status: Acute Code(s): R29.898 - Other symptoms and signs involving the musculoskeletal system (4) Protein calorie malnutrition: -Nutrition consult Status: Acute Code(s): E46 - Unspecified protein-calorie malnutrition (5) BPH (benign prostatic hyperplasia): Will add Flomax Status: Acute Code(s): N40.0 - Benign prostatic hyperplasia without lower urinary tract symptoms (6) Abdominal aortic aneurysm: Plan for surgery in March by Dr. 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
[2019-03-17] MEDS: enoxaparin 40 mg/0.4 mL Syringe SUBCUT (20:07)
[2019-03-18] VITALS (17 sets, daily range): BP systolic 138–152; BP diastolic 56–73; PULSE 79–105; RESP 16–22; TEMP 36.5–36.8; O2SAT 87–98
[2019-03-18] MEDS: ipratropium-albuterol 3 mL Neb INHALATION ×6 (03:15→23:30)
[2019-03-18 05:25] LABS: Hematocrit 38.7 % (42.0-52.0); Hemoglobin 12.8 g/dL (11.7-16.6); Lymphocytes # 0.8 10^3/uL (0.8-4.8); Mean Corpuscular HGB Conc 33.1 g/dL (30.0-36.0); Mean Corpuscular Hemoglobin 30.8 pg (28.0-34.0); Mean Platelet Volume 10.2 fL (7.4-10.4); Monocytes # 0.6 10^3/uL (0.2-0.9); Monocytes % 6.5 %; Neutrophils # 7.4 10^3/uL (1.8-7.7); Neutrophils % 83.7 %; Nucleated Red Blood Cells % 0 %; Platelet Count 372 10^3/cmm (130-400); Red Blood Count 4.16 10^6/uL (4.1-5.3); Red Cell Distribution Width 12.5 % (12.1-15.1); White Blood Count 8.9 10^3/uL (4.0-10.0)
[2019-03-18 05:45] LABS: Alanine Aminotransferase 26 U/L (0-41); Alkaline Phosphatase 53 IU/L (40-130); Anion Gap 12.1 (5-19); Aspartate Amino Transferase 23 U/L (0-40); Blood Urea Nitrogen 15 mg/dL (8-23); Calcium 9.2 mg/Dl (8.8-10.2); Carbon Dioxide 28 mmol/L (22-29); Chloride 101 mmol/L (98-107); Globulin 2.6 g/dL (1.3-4.6); Glucose 146 mg/dL (74-106); Magnesium 1.9 mg/dL (1.7-2.3); Phosphorus 2.4 mg/dL (2.5-4.5); Potassium 4.1 mmol/L (3.5-5.1); Sodium 137 mmol/L (136-145); Total Bilirubin 0.2 mg/dL (0.15-1.2); Total Protein 5.6 g/dL (6.6-8.7)
[2019-03-18] MEDS: aspirin 81 mg EC Tablet PO (10:18)
[2019-03-18] MEDS: cefTRIAXone 1,000 MG in sodium chloride 0.9% (plus) 50 ML 100 MG IV (10:18)
[2019-03-18] MEDS: tamsulosin 0.4 mg Capsule PO (10:18)
--- NOTE | 2019-03-18 14:46 | PM.PN ---
Subjective Subjective: Interval history: Patient states that he still a bit short of breath, still has shortness of breath with exertion, still a bit weak, has a persistent cough, no fevers, no chills, no nausea, no vomiting Vitals/I&O/Wt Last Vital Signs Temp 97.7 F 03/18/19 11:08 Pulse 103 H 03/18/19 11:08 Resp 22 H 03/18/19 11:08 BP 143/70 03/18/19 11:08 Pulse Ox 91 03/18/19 13:47 03/17/19 03/18/19 03/18/19 22:59 06:59 14:59 Intake Total 360 / 360 Output Total 275 / 675 675 / 1350 400 / 400 Balance -275 / -435 -675 / -1110 -40 / -40 Physical Exam Const: COMMON NORMALS: no apparent distress and oriented x3 GENERAL APPEARANCE: cooperative, comfortable and frail appearing NUTRITIONAL APPEARANCE: cachectic ORIENTATION/CONSCIOUSNESS: Yes awake, Yes oriented to person, Yes oriented to place and Yes oriented to time Neck/C-Spine: COMMON NORMALS: no JVD Lymph: LYMPHATIC: no lymphadenopathy noted Chest: COMMONS NORMALS: inspection of chest normal Resp: COMMON NORMALS: normal respiratory effort, no retractions, no use of accessory muscles and clear to auscultation bilaterally AUSCULTATION: clear to auscultation bilaterally and breath sounds absent on the right Cardio: COMMON NORMALS: no JVD, S1 normal heart sound, S2 normal heart sound, no gallops, no clicks, no murmurs and no rub RATE: tachycardic HEART SOUNDS: S1 normal and S2 normal GI: COMMON NORMALS: normal to inspection, nondistended, normoactive bowel sounds, soft to palpation, non-tender, no hepatosplenomegaly, no masses and no bruits PALPATION: Yes soft and Yes no hepatosplenomegaly Neuro: COMMON NORMALS: oriented x3 SENSORIUM/ORIENTATION: Yes oriented to person, Yes oriented to place and Yes oriented to time Data Micro: Micro: Microbiology 03/15/19 20:05 Gram Stain - Final Sputum - Endotrac heal Tube Aspirate Sputum Culture - F inal A&P Assessment and plan (1) Right lower lobe pneumonia: -Right lower lobe pneumonia -No clinical signs of respiratory distress Plan: -Nebulizer treatments every 4, every 2 as needed -Azithromycin and Rocephin -Monitor respiratory status closely -Blood cultures Status: Acute Code(s): J18.9 - Pneumonia, unspecified organism (2) COPD (chronic obstructive pulmonary disease): -As patient states that he has been more short of breath with exertion for the past past few weeks, will treat for COPD exacerbation -Solu-Medrol 125, after that 40 mg every 24 Status: Acute Code(s): J44.9 - Chronic obstructive pulmonary disease, unspecified (3) Muscular deconditioning: -Severe muscular deconditioning -Reports 30 poundweight loss for the last year -PT OT Status: Acute Code(s): R29.898 - Other symptoms and signs involving the musculoskeletal system (4) Protein calorie malnutrition: -Nutrition consult Status: Acute Code(s): E46 - Unspecified protein-calorie malnutrition (5) BPH (benign prostatic hyperplasia): Will add Flomax Status: Acute Code(s): N40.0 - Benign prostatic hyperplasia without lower urinary tract symptoms (6) Abdominal aortic aneurysm: Plan for surgery in March by Dr. 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
[2019-03-18] MEDS: azithromycin 500 MG in sodium chloride 0.9% 250 ML 250 MG IV (15:40)
[2019-03-18] MEDS: guaiFENesin 600 mg Tablet PO (19:11)
[2019-03-18] MEDS: enoxaparin 40 mg/0.4 mL Syringe SUBCUT (21:25)
[2019-03-18] MEDS: lactated ringers 1,000 ML 50 ML IV (21:25)
[2019-03-19] VITALS (13 sets, daily range): BP systolic 91–127; BP diastolic 59–76; PULSE 74–112; RESP 16–22; TEMP 36.2–36.6; O2SAT 92–99
[2019-03-19] MEDS: ipratropium-albuterol 3 mL Neb INHALATION ×4 (03:25→16:02)
[2019-03-19] MEDS: tamsulosin 0.4 mg Capsule PO (09:27)
[2019-03-19] MEDS: cefTRIAXone 1,000 MG in sodium chloride 0.9% (plus) 50 ML 100 MG IV (09:27)
[2019-03-19] MEDS: aspirin 81 mg EC Tablet PO (09:28)
[2019-03-19] MEDS: guaiFENesin 600 mg Tablet PO (09:28)
--- NOTE | 2019-03-19 14:41 | P.DS_ITS ---
Discharge Providers Date of Admission: 03/15/19 18:06 Date of Discharge: 03/19/19 Attending Provider at Admission: Alfred Durán MD Attending Provider at Discharge: Alfred Durán MD Primary Care Provider: Ney Rea Diagnoses at Discharge Discharge Diagnosis (1) Right lower lobe pneumonia: Status: Acute (2) COPD (chronic obstructive pulmonary disease): Status: Acute (3) Muscular deconditioning: Status: Acute (4) Protein calorie malnutrition: Status: Acute (5) BPH (benign prostatic hyperplasia): Status: Acute (6) Abdominal aortic aneurysm: Status: Acute Reason for Visit Reason for Visit: Brief History: Cough, shortness of breath Hospital Course Discharge Summary: This is a 83-year-old male with a past medical history of COPD, abdominal aortic aneurysm who presents to the emergency room due to cough and shortness of breath. Patient was admitted for a COPD exacerbation and a right lower lobe pneumonia, received broad-spectrum antibiotics, oxygen therapy, inhaler therapy, steroids; patient had a slow clinical progress, he did clinically improve, respiratory status improved, remained afebrile, ambulated without significant symptomatology, but complained of general weakness, received inpatient physical therapy, was discharged to the senior care. Was discharged on steroid taper oxygen therapy, inhaler therapy, he finished his antibiotic course as inpatient. Physical Exam Const: COMMON NORMALS: no apparent distress and oriented x3 GENERAL APPEARANCE: cooperative, comfortable and frail appearing NUTRITIONAL APPEARANCE: cachectic ORIENTATION/CONSCIOUSNESS: Yes awake, Yes oriented to person, Yes oriented to place and Yes oriented to time HENMT: COMMON NORMALS: normocephalic HEAD & SCALP: normocephalic MOUTH: oral and palatal mucosa normal Neck/C-Spine: COMMON NORMALS: full ROM, no lymphadenopathy, supple and no JVD Lymph: LYMPHATIC: no lymphadenopathy noted Chest: COMMONS NORMALS: inspection of chest normal Resp: COMMON NORMALS: normal respiratory effort, no retractions, no use of accessory muscles and clear to auscultation bilaterally AUSCULTATION: clear to auscultation bilaterally and breath sounds absent on the right Cardio: COMMON NORMALS: no JVD, S1 normal heart sound, S2 normal heart sound, no gallops, no clicks, no murmurs and no rub HEART SOUNDS: S1 normal and S2 normal GI: COMMON NORMALS: normal to inspection, nondistended, normoactive bowel sounds, soft to palpation, non-tender, no hepatosplenomegaly, no masses and no bruits PALPATION: Yes soft and Yes no hepatosplenomegaly Extremity: COMMON NORMALS: full ROM, no clubbing, cyanosis or edema and no pedal edema Neuro: COMMON NORMALS: oriented x3 SENSORIUM/ORIENTATION: Yes oriented to person, Yes oriented to place and Yes oriented to time Discharge Data Data Completed and Pending: Completed Studies During Hospitalization Category Date Time Status XR chest 1V eulogio ble [id number] Routine Exams 03/16/19 07:00 Completed XR chest 1V eulogio ble [id number] Urgent Exams 03/15/19 12:22 Completed Pending at discharge Category Date Time Status Blood Culture Sta t Lab 03/15/19 13:20 Results Vitals: Last Vital Signs Temp 97.9 F 03/19/19 11:23 Pulse 112 H 03/19/19 11:28 Resp 18 03/19/19 11:23 BP 127/68 03/19/19 11:23 Pulse Ox 96 03/19/19 11:23 Discharge Attestations Time Spent in Discharge Care*: greater than 30 min Quality Metrics Clinical Quality Measures During this hospital stay, did patient experience: None Coding Level of Care Code 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
== END 2019-03-19 17:00 | disposition skilled nursing facility (03) | DRG 194 ==
LOC: ER 13:01 → MEDSURG 18:06
PROVIDERS: Physician Assistant; Admitting Provider Family Medicine; Emergency Provider Family Medicine; Family Provider Internal Medicine; PCP Internal Medicine; Visit Provider Family Medicine
DX: J18.9 Pneumonia, unspecified organism (principal); J44.1 Chronic obstructive pulmonary disease with (acute) exacerbation; E46 Unspecified protein-calorie malnutrition; R65.10 Systemic inflammatory response syndrome (SIRS) of non-infectious origin without acute organ dysfunction; Z68.1 Body mass index [BMI] 19.9 or less, adult; J44.0 Chronic obstructive pulmonary disease with (acute) lower respiratory infection; Z87.891 Personal history of nicotine dependence; N40.0 Benign prostatic hyperplasia without lower urinary tract symptoms; Z85.828 Personal history of other malignant neoplasm of skin; I71.4 Abdominal aortic aneurysm, without rupture
CPT/HCPCS: 36415; 71045; 80053; 83605; 83735; 83880; 84100; 84484; 85025; 87040; 87070; 87205; 87804; 93005; 94640; 96372; 96375; 97116; 97161; 97166; 99282; J0456; J0696; J1650; J2920; J2930; J7050

== ENCOUNTER 2019-03-22 08:56 | Inpatient (IN) | payer OTHER, MEDICARE, SELFPAY ==
[2019-03-22] VITALS (20 sets, daily range): BP systolic 100–189; BP diastolic 65–113; PULSE 80–212; RESP 14–36; TEMP 36.4; O2SAT 83–99; BMI 16.8
--- NOTE | 2019-03-22 08:58 | ED_ITS ---
Entered by Tala Childers, acting as scribe for Marky Maier DO HPI - Abdominal Pain General: Chief Complaint: Abdominal Pain Stated Complaint: ABD PAIN Time Seen by Provider: 03/22/19 08:57 Source: patient Mode of arrival: EMS Limitations: no limitations History of Present Illness: HPI narrative: 83 yo m came to the er by ems for abd pain with a known aotric aneurysm. Onset was last night. Pt states that he started having some pain last night along with heartburn. Pt states that his abd pain radiates to the lower left flank and to the back. MD elicited complaint: abdominal pain Pertinent past history: other (aortic aneurysm) Onset (ago): day(s) (last night) Pain Consistency: constant Location: None, RLQ and LLQ Severity: mild Quality: other (pain) Radiation: L flank Associated Symptoms: Reports nausea; Denies bloating, chills, coffee ground emesis, constipation, diarrhea, dysuria, fever(s), hematochezia, hematemesis, melena and vomiting Review of Systems Const: Denies: fever or chills ENMT: Denies: throat pain, ear pain, nasal discharge or nasal congestion Card: Denies: chest pain, edema, shortness of breath on exertion or shortness of breath when lying down Resp: Denies: shortness of breath, productive cough or non-productive cough GI: Reports: abdominal pain and nausea; Denies: vomiting, vomiting blood, coffee grounds in vomit, diarrhea, constipation, bloating, blood in stool or black tarry stool : Denies: painful urination Skin/Breast: Denies: rash or itching PFSH ED PFSH: Statuses (acute, chronic, etc) shown below reflect problem list status as previously entered and may not be historically accurate Medical History Abdominal aortic aneurysm (Acute) BPH (benign prostatic hyperplasia) (Acute) COPD (chronic obstructive pulmonary disease) (Acute) Muscular deconditioning (Acute ~03/15/19) Protein calorie malnutrition (Acute) Right lower lobe pneumonia (Acute) Skin cancer (Acute) Skin graft (allograft) (autograft) failure (Acute) Surgical History H/O hernia repair (Acute) Family History Father Cancer Prostate cancer Son Cancer Non-small cell lung cancer Social History Smoking and tobacco status: former smoker Alcohol intake: former Caregiver/support person: Yes Lives independently: No Household members: family Physical Exam Const: COMMON NORMALS: no apparent distress GENERAL APPEARANCE: cooperative and comfortable ORIENTATION/CONSCIOUSNESS: Yes awake, Yes oriented to person, Yes oriented to place and Yes oriented to time HENMT: COMMON NORMALS: normocephalic, head/scalp atraumatic, hearing grossly normal bilaterally, external ears normal, EAC's normal, TM's normal bilaterally, nasal mucous membranes and turbinates normal, moist oral mucous membranes and oropharynx normal HEAD & SCALP: normocephalic and atraumatic NOSE: nasal mucous membranes and turbinates normal EXTERNAL EAR: Yes external ears normal EXTERNAL AUDITORY CANAL: EAC's normal TYMPANIC MEMBRANE: TM's normal bilaterally Eye: COMMON NORMALS: PERRL, EOMs intact bilaterally, conjunctivae normal and no scleral icterus CONJUNCTIVA: Yes conjunctivae normal PUPIL: Yes PERRL Neck/C-Spine: COMMON NORMALS: full ROM, no lymphadenopathy, supple and no JVD Lymph: LYMPHATIC: no lymphadenopathy noted and no lymphedema noted Resp: COMMON NORMALS: normal respiratory effort, no retractions and no use of accessory muscles AUSCULTATION: wheezes expiratory wheezes and diminished lung sounds Cardio: COMMON NORMALS: no JVD, regular rate, regular rhythm and no murmurs RATE: regular rate RHYTHM: regular rhythm GI: COMMON NORMALS: soft to palpation and no hepatosplenomegaly AUSCULTATION: Yes normoactive bowel sounds PALPATION: Yes soft, Yes tender (Mid abdominal periumbilical. Palpable pulsatile mass noted consistent with the known history of abdominal aortic or aortic aneurysm) Details: other and Yes no hepatosplenomegaly Extremity: COMMON NORMALS: normal to inspection, normal capillary refill, no clubbing, cyanosis or edema, no calf tenderness and no pedal edema Neuro: SENSORIUM/ORIENTATION: Yes oriented to person, Yes oriented to place and Yes oriented to time Skin: COMMON NORMALS: no rashes or lesions noted GENERAL SKIN EXAM: no rashes or lesions noted Course ED course: Incidental finding on the CT abdomen of pneumothorax CT chest was done see results discussed Dr. Felix Prado will admit the patient. Patient when he initially arrived stated he is breathing was actually doing very well it was just purely his abdominal pain. At this point he is tolerating the pneumothorax well Dr. Prado is seen the patient is elected just to monitor in the ICU. May put a pleural vent and later or chest tube if needed emergently is also evaluating for endograft of the AAA. Consultations: Time: 10:15 Consultation #2: Time: 10:17 Consultation #3: Vital Signs: Vital signs: Vital Signs Temperature 97.6 F 03/24/19 06:00 Pulse Rate 79 03/24/19 07:48 Respiratory Rate 16 03/24/19 07:43 Blood Pressure 117/66 03/24/19 06:00 Pulse Oximetry 99 03/24/19 07:43 MDM - Abdominal Pain Lab Data: Labs: Lab Results 03/22/19 03/22/19 03/22/19 Range/Units 09:00 09:00 09:00 WBC 11.8 H (4.0-10.0) 10^3/ uL RBC 5.35 H (4.1-5.3) 10^6/u L Hgb 16.6 (11.7-16.6) g/dL Hct 50.4 (42.0-52.0) % MCV 94.2 H (80-94) fL MCH 31.0 (28.0-34.0) pg MCHC 32.9 (30.0-36.0) g/dL RDW 13.0 (12.1-15.1) % Plt Count 393 (130-400) 10^3/c mm MPV 9.8 (7.4-10.4) fL Neut % (Auto) 77.1 % Lymph % (Auto) 12.9 % [place] % (Auto) 6.5 % Eos % (Auto) 0.9 % Baso % (Auto) 0.3 % Neut # (Auto) 9.1 H (1.8-7.7) 10^3/u L Lymph # (Auto) 1.5 (0.8-4.8) 10^3/u L [place] # (Auto) 0.8 (0.2-0.9) 10^3/u L Eos # (Auto) 0.1 (0.0-0.8) 10^3/u L Baso # (Auto) 0.0 (0.0-0.1) 10^3/u L Nucleated RBC % (a uto) 0 % Nucleated RBCs # 0.0 /100WBC PT 12.80 (10.5-13.3) SECO NDS INR 0.94 (0.8-1.2) APTT 27.0 (23.9-36.7) SECO NDS Sodium 137 (136-145) mmol/L Potassium 4.1 (3.5-5.1) mmol/L Chloride 97 L (98-107) mmol/L Carbon Dioxide 28 (22-29) mmol/L Anion Gap 16.1 (5-19) BUN 16 (8-23) mg/dL Creatinine 0.9 (0.7-1.2) mg/dL Glucose 90 (74-106) mg/dL Calcium 10.0 (8.8-10.2) mg/Dl Total Bilirubin 0.6 (0.15-1.2) mg/dL AST 25 (0-40) U/L ALT 56 H (0-41) U/L Alkaline Phosphata se 71 (40-130) IU/L Total Protein 6.8 (6.6-8.7) g/dL Albumin 4.2 (3.5-5.2) g/dL Globulin 2.6 (1.3-4.6) g/dL Urine Color (Yellow) Urine Appearance (CLEAR) Urine pH (5-7) Ur Specific Gravit y (1.005-1.030) Urine Protein (Negative) Urine Glucose (UA) (Normal) Urine Ketones (Negative) Urine Occult Blood (Negative) Urine Nitrate (Negative) Urine Bilirubin (NEGATIVE) Urine Urobilinogen (Negative) mg/dL Ur Leukocyte Janis ase (Negative) 03/22/19 Range/Units 09:50 WBC (4.0-10.0) 10^3/ uL RBC (4.1-5.3) 10^6/u L Hgb (11.7-16.6) g/dL Hct (42.0-52.0) % MCV (80-94) fL MCH (28.0-34.0) pg MCHC (30.0-36.0) g/dL RDW (12.1-15.1) % Plt Count (130-400) 10^3/c mm MPV (7.4-10.4) fL Neut % (Auto) % Lymph % (Auto) % [place] % (Auto) % Eos % (Auto) % Baso % (Auto) % Neut # (Auto) (1.8-7.7) 10^3/u L Lymph # (Auto) (0.8-4.8) 10^3/u L [place] # (Auto) (0.2-0.9) 10^3/u L Eos # (Auto) (0.0-0.8) 10^3/u L Baso # (Auto) (0.0-0.1) 10^3/u L Nucleated RBC % (a uto) % Nucleated RBCs # /100WBC PT (10.5-13.3) SECO NDS INR (0.8-1.2) APTT (23.9-36.7) SECO NDS Sodium (136-145) mmol/L Potassium (3.5-5.1) mmol/L Chloride (98-107) mmol/L Carbon Dioxide (22-29) mmol/L Anion Gap (5-19) BUN (8-23) mg/dL Creatinine (0.7-1.2) mg/dL Glucose (74-106) mg/dL Calcium (8.8-10.2) mg/Dl Total Bilirubin (0.15-1.2) mg/dL AST (0-40) U/L ALT (0-41) U/L Alkaline Phosphata se (40-130) IU/L Total Protein (6.6-8.7) g/dL Albumin (3.5-5.2) g/dL Globulin (1.3-4.6) g/dL Urine Color Yellow (Yellow) Urine Appearance Clear (CLEAR) Urine pH 7 (5-7) Ur Specific Gravit y 1.005 (1.005-1.030) Urine Protein Neg (Negative) Urine Glucose (UA) Norm (Normal) Urine Ketones Negative (Negative) Urine Occult Blood Neg (Negative) Urine Nitrate Negative (Negative) Urine Bilirubin Neg (NEGATIVE) Urine Urobilinogen Norm (Negative) mg/dL Ur Leukocyte Janis ase Negative (Negative) Imaging Data ^: CT Abd/Pel: Radiologist's impression: [place] [address] [place] [address] CT Scan Report Signed Patient: Abel Cool WMR#: [id number] : 5Acct:[id number] Age/Sex: 83 / MADM Date: 03/22/19 Loc: ER Attending Dr: Ordering Physician: Marky Maier DO Date of Service: 03/22/19 Procedure(s): CT angio abdomen 04853 Accession Number(s): [id number] Report Number: [id number] WS: [id number] CT scan of the abdominal aorta. Additional two-dimensional coronal and sagittal reconstruction was performed. MIP images were also performed. 03/22/2019 Clinical Data: AAA Comparison: CTA abdomen and pelvis, 02/23/2019, portable chest, 03/16/2019 DLP: 303.60 mGy-cm All CT scans at [facility] use at least one of these dose optimization techniques: automated exposure control; mA and/or kV adjustment per patient size (includes targeted exams where dose is matched to clinical indication); or iterative reconstruction. Findings: At the right lung base there is a 10% right pneumothorax. There are small bilateral pleural effusions, more on the right than the left. There is a dense consolidation in the right lower lobe probably representing pneumonia unchanged. There are smaller consolidations which may also represent pneumonia in the lingula and in the right middle lobe. Abdominal aortic aneurysm is the same size as was seen before. It measures 4.8 x 4.7 x 6.5 cm in transverse, anterior-posterior and length, respectively. There is a large mural thrombus associated with this aneurysm. No extravasation is seen. There is a large right renal cyst measuring 6.2 cm with peripheral calcifications. The liver, spleen, pancreas, gallbladder and adrenal glands are unremarkable. The left kidney is normal. No abscess, adenopathy, ascites, mass, obstruction or free air is noted. The stomach and small bowel show no abnormalities. There is a large amount of fecal material in the colon. There is a dextroscoliosis with degenerative change and multiple degenerative disc narr owing. There is a subluxation of L5 on S1. CT/CT angio abdomen 58738 Impression: 1. Right basilar 10% pneumothorax. 2. Bilateral pleural effusions and right lower lobe pneumonia. 3. Large abdominal aortic aneurysm unchanged from before with no extravasation. 4. Right superior renal cyst unchanged. 5. Contacted the emergency room at 0950 hours. Dictated By:Dejah Mendoza MD CT Chest: Radiologist's impression: [address] [address] [address] Scan Report Signed Patient: Abel Cool WMR#: [id number] : 5Acct:[id number] Age/Sex: 83 / MADM Date: 03/22/19 Loc: ER Attending Dr: Ordering Physician: Marky Maier DO Date of Service: 03/22/19 Procedure(s): CT angio chest PE protcl [id number] Accession Number(s): [id number] Report Number: [id number] WS: [id number] CTA scan of the chest with IV contrast. Additional two-dimensional coronal and sagittal reconstruction and MIP images was performed. 03/22/2019 Clinical Data: dyspnea Comparison: CT chest PE study, 05/04/2016. DLP: 687.[address] scans at [facility] use at least one of these dose optimization techniques: automated exposure control; mA and/or kV adjustment per patient size (includes targeted exams where dose is matched to clinical indication); or iterative reconstruction. Findings: The central pulmonary arteries and peripheral pulmonary arteries fill normally with no evidence of intermittent luminal filling defects. No pulmonary embolic disease is noted. The left subclavian artery is not visualized and may be occluded. There are large bullae of the right lower and left lower lobes which were noted before. There is also a small right pneumothorax of approximately 5-10%. There is a right basilar consolidation which is probably a combination of atelectasis and pneumonia. There are small bilateral pleural effusions with more on the right than the left. No nodules or masses are seen. The heart size is normal with no pericardial effusion. The thoracic aorta demonstrates no abnormalities or dilatations. There is no axillary or significant mediastinal adenopathy. The thyroid gland shows normal enhancement. The trachea bifurcates into the bronchi. The upper abdomen shows no change from before.. There is a large cyst of the upper pole of the right kidney unchanged. The large abdominal aortic aneurysm is partially visualized. The bones of the thoracic and upper lumbar spine show osteoporosis and a slight compression fracture of the T12 vertebral body.. CT/CT angio chest PE protcl 31237 Impression: 1. Negative for pulmonary embolic disease. 2. Severe chronic obstructive pulmonary disease with large bullae of both the ri ght and left lower lobes. 3. Small, 5-10% right pneumothorax. 4. Right lower lobe consolidation which is probably a combination of pneumonia and atelectasis. 5. Large abdominal aortic aneurysm. Dictated By:Dejah Mendoza MD CXR: Radiologist's impression: [address] [address] XRay Report Signed Patient: Abel Cool WMR#: [id number] : 5Acct:[id number] Age/Sex: 83 / MADM Date: 03/22/19 Loc: ER Attending Dr: Ordering Physician: Marky Maier DO Date of Service: 03/22/19 Procedure(s): XR chest 1V portable [id number] Accession Number(s): [id number] Report Number: [id number] WS: [id number] Portable AP upright chest, 03/22/2019 Clinical Data: dyspnea Comparison: Portable chest, 03/16/2019 Findings: The right basilar consolidation remains the same. There is a small, 10% right pneumothorax which was not present before. The left lung shows minimal atelectatic changes over the surface of the left diaphragm. The diaphragms are flattened. The heart size is normal. The pulmonary vascularity is not increased. No The pulmonary vascularity is not increased. The aortic arch is minimally tortuous. Monitor leads are on the chest wall. XR/XR chest 1V portable [id number] Impression: 1. Small right 10% pneumothorax which was not present on the prior examination. 2. Right basilar consolidation most likely pneumonia. 3. Hyperinflation and atherosclerosis. Dictated By:Dejah Mendoza MD Discharge Plan Discharge Patient Disposition: Admitted As Inpatient Admit Provider: Brenda Valero Clinical Impression: Pneumothorax on right, COPD (chronic obstructive pulmonary disease), Right lower lobe pneumonia, Abdominal aortic aneurysm Condition: Stable Referrals: Ney Rea [Primary Care Provider] - Discharge Date/Time: 03/22/19 17:05 Coding Level of Care Code ED Hot Saw Helper for Chg Fwd Exam Problem Focused The documentation recorded by the Alvarado whalen Stephanie Lyn, accurately reflects the service I personally performed and the decisions made by , Marky Maier, Mar 22, 2019 08:56
--- NOTE | 2019-03-22 09:09 | CT_ITS ---
WS: [id number] CT scan of the abdominal aorta. Additional two-dimensional coronal and sagittal reconstruction was pe rformed. MIP images were also performed. 03/22/2019 Clinical Data: AAA Comparison: CTA abdomen and pelvis, 02/23/2019, portable chest, 03/16/2019 DLP: 303.60 mGy-cm All CT scans at [facility] use at least one of these dose optimization techniques: automat ed exposure control; mA and/or kV adjustment per patient size (includes targeted exams where dose is matched to clinical indication); or iterative reconstruction. Findings: At the right lung base there is a 10% right pneumothorax. There are small bilateral pleural effusions , more on the right than the left. There is a dense consolidation in the right lower lobe probably re presenting pneumonia unchanged. There are smaller consolidations which may also represent pneumonia in the lingula and in the right middle lobe. Abdominal aortic aneurysm is the same size as was seen before. It measures 4.8 x 4.7 x 6.5 cm in jacob sverse, anterior-posterior and length, respectively. There is a large mural thrombus associated with this aneurysm. No extravasation is seen. There is a large right renal cyst measuring 6.2 cm with mik pheral calcifications. The liver, spleen, pancreas, gallbladder and adrenal glands are unremarkable. The left kidney is normal. No abscess, adenopathy, ascites, mass, obstruction or free air is noted. T he stomach and small bowel show no abnormalities. There is a large amount of fecal material in the co celeste. There is a dextroscoliosis with degenerative change and multiple degenerative disc narrowing. Th ere is a subluxation of L5 on S1. CT/CT angio abdomen [id number] Impression: 1. Right basilar 10% pneumothorax. 2. Bilateral pleural effusions and right lower lobe pneumonia. 3. Large abdominal aortic aneurysm unchanged from before with no extravasation. 4. Right superior renal cyst unchanged. 5. Contacted the emergency room at 0950 hours.
[2019-03-22 09:18] LABS: Basophils % 0.3 %; Eosinophils # 0.1 10^3/uL (0.0-0.8); Eosinophils % 0.9 %; Hematocrit 50.4 % (42.0-52.0); Hemoglobin 16.6 g/dL (11.7-16.6); Lymphocytes # 1.5 10^3/uL (0.8-4.8); Lymphocytes % 12.9 %; Mean Corpuscular HGB Conc 32.9 g/dL (30.0-36.0); Mean Corpuscular Volume 94.2 fL (80-94); Mean Platelet Volume 9.8 fL (7.4-10.4); Monocytes # 0.8 10^3/uL (0.2-0.9); Monocytes % 6.5 %; Neutrophils # 9.1 10^3/uL (1.8-7.7); Neutrophils % 77.1 %; Nucleated Red Blood Cells % 0 %; Platelet Count 393 10^3/cmm (130-400); Red Blood Count 5.35 10^6/uL (4.1-5.3); White Blood Count 11.8 10^3/uL (4.0-10.0)
[2019-03-22] MEDS: iohexol 350 mg/mL 100 mL Btl IV (09:30)
[2019-03-22 09:34] LABS: Alanine Aminotransferase 56 U/L (0-41); Albumin Level 4.2 g/dL (3.5-5.2); Alkaline Phosphatase 71 IU/L (40-130); Anion Gap 16.1 (5-19); Aspartate Amino Transferase 25 U/L (0-40); Blood Urea Nitrogen 16 mg/dL (8-23); Carbon Dioxide 28 mmol/L (22-29); Chloride 97 mmol/L (98-107); Globulin 2.6 g/dL (1.3-4.6); Glucose 90 mg/dL (74-106); Potassium 4.1 mmol/L (3.5-5.1); Sodium 137 mmol/L (136-145); Total Bilirubin 0.6 mg/dL (0.15-1.2); Total Protein 6.8 g/dL (6.6-8.7)
--- NOTE | 2019-03-22 09:52 | XR_ITS ---
WS: [id number] Portable AP upright chest, 03/22/2019 Clinical Data: dyspnea Comparison: Portable chest, 03/16/2019 Findings: The right basilar consolidation remains the same. There is a small, 10% right pneumothorax which was not present before. The left lung shows minimal atelectatic changes over the surface of the left diaphragm. The diaphragms are flattened. The heart size is normal. The pulmonary vascularity is not increased. No The pulmonary vascularity is not increased. The aortic arch is minimally tortuous. Monitor leads are on the chest wall. XR/XR chest 1V portable [id number] Impression: 1. Small right 10% pneumothorax which was not present on the prior examination. 2. Right basilar consolidation most likely pneumonia. 3. Hyperinflation and atherosclerosis.
--- NOTE | 2019-03-22 09:53 | CT_ITS ---
WS: [id number] CTA scan of the chest with IV contrast. Additional two-dimensional coronal and sagittal reconstructio n and MIP images was performed. 03/22/2019 Clinical Data: dyspnea Comparison: CT chest PE study, 05/04/2016. DLP: 687.[address] scans at [facility] use at least one of these dose optimization techniques: automat ed exposure control; mA and/or kV adjustment per patient size (includes targeted exams where dose is matched to clinical indication); or iterative reconstruction. Findings: The central pulmonary arteries and peripheral pulmonary arteries fill normally with no evidence of in termittent luminal filling defects. No pulmonary embolic disease is noted. The left subclavian artery is not visualized and may be occluded. There are large bullae of the right lower and left lower lobes which were noted before. There is also a small right pneumothorax of approximately 5-10%. There is a right basilar consolidation which is p robably a combination of atelectasis and pneumonia. There are small bilateral pleural effusions with more on the right than the left. No nodules or masses are seen. The heart size is normal with no pericardial effusion. The thoracic ao rta demonstrates no abnormalities or dilatations. There is no axillary or significant mediastinal marialuisa nopathy. The thyroid gland shows normal enhancement. The trachea bifurcates into the bronchi. The upper abdomen shows no change from before.. There is a large cyst of the upper pole of the right kidney unchanged. The large abdominal aortic aneurysm is partially visualized. The bones of the thoracic and upper lumbar spine show osteoporosis and a slight compression fracture of the T12 vertebral body.. CT/CT angio chest PE protcl [id number] Impression: 1. Negative for pulmonary embolic disease. 2. Severe chronic obstructive pulmonary disease with large bullae of both the r ight and left lower lobes. 3. Small, 5-10% right pneumothorax. 4. Right lower lobe consolidation which is probably a combination of pneumonia and atelectasis. 5. Large abdominal aortic aneurysm.
[2019-03-22 09:59] LABS: Add Urine Microscopic? NO
[2019-03-22 10:02] LABS: Bilirubin Urine Neg (NEGATIVE); Blood Urine Neg (Negative); Glucose Urine UA Norm (Normal); Ketones Urine Negative (Negative); Leukocyte Esterase Urine Negative (Negative); Nitrate Urine Negative (Negative); Protein Urine Neg (Negative); Specific Gravity, Urine 1.005 (1.005-1.030); Urine Appearance Clear (CLEAR); Urine Color Yellow (Yellow); Urobilinogen Urine Norm (Negative); pH Urine 7 (5-7)
[2019-03-22 10:10] LABS: INR 0.94 (0.8-1.2)
[2019-03-22] MEDS: iodixanol 320 mg/mL 100mL Btl IV (11:07)
--- NOTE | 2019-03-22 16:39 | P.HP_ITS ---
Providers/Chief Complaint Admitting Physician: Brenda Valero MD Primary Care Provider: Ney Rea Chief Complaint: ABD PAIN History of Present Illness Abel Cool is a 83 year old male that presented from a custodial facility for abdominal pain. He reported that he was recently discharged on Tuesday to custodial facility and reported that he had been doing well at that time. He stated that his breathing had been doing much better but then last night he began having increasing cough, stated that he had a very strong cough to the point that he began having abdominal discomfort. He stated that due to the discomfort he was brought into the ER for further evaluation and treatment. He did report that he is on 2 L of oxygen by nasal cannula at baseline, has remained on his home oxygen requirements. Denies any chest pain or shortness of breath. Denies any fevers, reports occasional chills. He does report weight loss over the past several months. Review of Systems Const: Reports: chills; Denies: fever ENMT: Denies: throat pain, ear pain, nasal discharge or nasal congestion Card: Denies: chest pain, edema, shortness of breath on exertion or shortness of breath when lying down Resp: Reports: non-productive cough; Denies: shortness of breath, productive cough, wheezing or coughing up blood GI: Reports: abdominal pain (Initially, now resolved); Denies: nausea, vomiting, vomiting blood, coffee grounds in vomit, diarrhea, constipation, bloating, blood in stool or black tarry stool : Denies: painful urination Skin/Breast: Denies: rash or itching Neuro: Denies: headache Medications/Allergies Home Medications Medication Instructions Recorded Confirmed Last Taken Type acetaminophen [Tylenol] 650 mg PO Q6H PRN 03/22/19 03/22/19 Unknown History bisacodyl [Dulcolax (bisacodyl)] 10 mg PO DAILY PRN 03/22/19 03/22/19 Unknown History bisacodyl [Dulcolax (bisacodyl)] 10 mg MO DAILY PRN 03/22/19 03/22/19 Unknown History ipratropium-albuterol 3 ml INHALATION Q4H PRN 03/22/19 03/22/19 Unknown History magnesium hydroxide [Milk of 30 ml PO DAILY PRN 03/22/19 03/22/19 Unknown History Magnesia] sodium phosphates [Fleet Enema] 118 ml MO DAILY PRN 03/22/19 03/22/19 Unknown History Allergies Allergy/AdvReac Type Severity Reaction Status Date / Time sulfamethoxazole Allergy Severe ALGY-Anaphy Verified 03/15/19 12:14 [From Bactrim] laxis trimethoprim [From Bactrim] Allergy Severe ALGY-Anaphy Verified 03/15/19 12:14 laxis pantoprazole [From Protonix] Allergy Unknown Unknown Verified 03/15/19 20:58 PFSH Acute PFSH: Statuses (acute, chronic, etc) shown below reflect problem list status as previously entered and may not be historically accurate Medical History Abdominal aortic aneurysm (Acute) BPH (benign prostatic hyperplasia) (Acute) COPD (chronic obstructive pulmonary disease) (Acute) Muscular deconditioning (Acute ~03/15/19) Protein calorie malnutrition (Acute) Right lower lobe pneumonia (Acute) Skin cancer (Acute) Skin graft (allograft) (autograft) failure (Acute) Surgical History H/O hernia repair (Acute) Family History Father Cancer Prostate cancer Son Cancer Non-small cell lung cancer Social History Smoking and tobacco status: former smoker Alcohol intake: former Caregiver/support person: Yes Lives independently: No Household members: family Vitals/I&O/Wt Last Vital Signs Temp 97.5 F L 03/22/19 08:58 Pulse 91 03/22/19 14:27 Resp 27 H 03/22/19 14:27 BP 137/87 03/22/19 14:27 Pulse Ox 99 03/22/19 14:27 Weight last 48 hrs Weight 51.71 kg Physical Exam Const: COMMON NORMALS: oriented x3 and alert GENERAL APPEARANCE: cooperative NUTRITIONAL APPEARANCE: thin ORIENTATION/CONSCIOUSNESS: Yes awake, Yes oriented to person, Yes oriented to place and Yes oriented to time HENMT: COMMON NORMALS: normocephalic and head/scalp atraumatic HEAD & SCALP: normocephalic and atraumatic Eye: COMMON NORMALS: PERRL PUPIL: Yes PERRL Neck/C-Spine: COMMON NORMALS: supple GENERAL: Yes normal visual inspection Resp: COMMON NORMALS: normal respiratory effort AUSCULTATION: no rhonchi OTHER: Diminished breath sounds bilaterally with prolonged expiratory phase, diminished breath sounds in the right base and right apex Cardio: COMMON NORMALS: regular rate, regular rhythm and no murmurs RATE: regular rate RHYTHM: regular rhythm GI: COMMON NORMALS: soft to palpation and non-tender INSPECTION: No abdominal distension AUSCULTATION: Yes normoactive bowel sounds PALPATION: Yes soft Extremity: COMMON NORMALS: no clubbing, cyanosis or edema and no calf tenderness NARRATIVE EXTREMITY EXAM: Muscle wasting in the lower extremities bilaterally Neuro: COMMON NORMALS: oriented x3, CN's II-XII intact bilaterally, moves all extremities and no focal motor deficits SENSORIUM/ORIENTATION: Yes alert, Yes oriented to person, Yes oriented to place and Yes oriented to time SPEECH: speech normal Psych: COMMON NORMALS: mental status grossly normal and cooperative Skin: COMMON NORMALS: no rashes or lesions noted GENERAL SKIN EXAM: no rashes or lesions noted Data Imaging^: Other CT: Radiologist's impression: 1. Right basilar 10% pneumothorax. 2. Bilateral pleural effusions and right lower lobe pneumonia. 3. Large abdominal aortic aneurysm unchanged from before with no extravasation. 4. Right superior renal cyst unchanged. 5. Contacted the emergency room at 0950 hours CTA Chest: Radiologist's impression: 1. Negative for pulmonary embolic disease. 2. Severe chronic obstructive pulmonary disease with large bullae of both the right and left lower lobes. 3. Small, 5-10% right pneumothorax. 4. Right lower lobe consolidation which is probably a combination of pneumonia and atelectasis. 5. Large abdominal aortic aneurysm CXR: Radiologist's impression: Impression: 1. Small right 10% pneumothorax which was not present on the prior examination. 2. Right basilar consolidation most likely pneumonia. 3. Hyperinflation and atherosclerosis. A&P Assessment and plan (1) Pneumothorax on right: Cardiothoracic surgery, Dr. Prado consulted. Appreciate recommendations and assistance in patient's care. We will continue with close monitoring and serial imaging at this time and plan is to hold off on chest tube placement Status: Acute Code(s): J93.9 - Pneumothorax, unspecified (2) AAA (abdominal aortic aneurysm) without rupture: Follow-up with cardiothoracic surgery recommendations, plan for possible endograft on Tuesday Status: Acute Code(s): I71.4 - Abdominal aortic aneurysm, without rupture (3) Right lower lobe pneumonia: Started on Levaquin 750 mg IV daily Complex, complicated pneumonia Oxygen per protocol Respiratory therapy to assess and treat Status: Acute Code(s): J18.9 - Pneumonia, unspecified organism (4) Protein calorie malnutrition: Reported gradual weight loss over the past several months Status: Acute Code(s): E46 - Unspecified protein-calorie malnutrition (5) COPD (chronic obstructive pulmonary disease): Severe COPD with bullous formation On 2 L of oxygen by nasal cannula at baseline Continue with previously prescribed prednisone taper Status: Acute Code(s): J44.9 - Chronic obstructive pulmonary disease, unspecified Attestations Medical Necessity Statement*: Patient requires hospitalization due to pneumothorax and abdominal aortic aneurysm with severe COPD and pneumonia. Expected stay greater than 2 midnights Coding Level of Care Code Acute Manager Ambulatory for Chg Fwd Diagnoses Pneumothorax on right J93.9 AAA (abdominal aortic aneurysm) without rupture I71.4 Right lower lobe pneumonia J18.9 Protein calorie malnutrition E46 COPD (chronic obstructive pulmonary disease) J44.9
--- NOTE | 2019-03-22 16:39 | PC.NURSE ---
attempted to give report to ICU no one available to take it
--- NOTE | 2019-03-22 16:43 | PC.NURSE ---
pt placed in gown, resting comfortably with no further needs at this time.
--- NOTE | 2019-03-22 17:23 | P.CONIM_ITS ---
Providers/Reason For Consult Consulting Physican/Specialty*: Dr. Valero Reason for Consult*: Infrarenal abdominal aortic aneurysm 4.8 x 4.7 x 6.5 cm Attending Physician: Brenda Valero MD Primary Care Provider: Ney Rea History of Present Illness History of Present Illness Abel Cool is a 83 year old male who I originally saw in referral to my clinic back on March 15 of this year. He had been referred by Dr. Jean from the [facility] system to evaluate an infrarenal abdominal aortic aneurysm. That previous study measured maximal transverse diameter at 5.1 cm. He is a quite frail gentleman with substantially advanced emphysematous lung disease. Due to his small stature and advanced emphysema, along with the dimensions of the aneurysm, I did recommend consideration for elective endovascular repair. He was currently being evaluated for this during that clinic visit of March 15. He was subsequently admitted for presumed pneumonia or COPD exacerbation within 1 to 2 days after that visit. He has now been readmitted initially for abdominal pain where on the most recent study the aneurysm appears to be unchanged in size with substantial mural thrombus. Incidental finding of a small right pneumothorax was noted and this was further confirmed by CTA of the chest which was negative for pulmonary embolism, significant for extensive bullous disease of the lower lobes bilaterally as well as a 10% right pneumothorax. I have personally reviewed the CT scan of the chest and abdomen. Review of Systems General: Reports: 10 or more systems reviewed and unremarkable except in HPI and below Narrative: An elderly frail and small stature gentleman with advanced and was able to his lung disease. He has limited mobility. Const: Reports: change in weight (He does note weight loss.) and fatigue; Denies: fever or chills ENMT: Denies: throat pain Card: Denies: chest pain, palpitations or irregular heart rhythm Resp: Reports: shortness of breath (Chronically short of breath, particularly with only modest exertion.), non-productive cough and wheezing GI: Reports: abdominal pain (Currently resolved at the time of my exam though fairly prominent upon presentation.); Denies: difficulty swallowing or heartburn/indigestion Neuro: Reports: vertigo; Denies: headache, weakness in extremities or changes in sensation Psych: Denies: anxiety or depression Meds/Allergies Home Medications and Allergies Home Medications Medication Instructions Recorded Confirmed Type budesonide-formoterol HFA 160 2 puff INHALATION BID 03/15/19 03/22/19 History mcg-4.5 mcg/actuation aerosol inhaler oxygen-air delivery systems #1 03/15/19 03/15/19 History acetaminophen [Tylenol] 650 mg PO Q6H PRN 03/22/19 03/22/19 History bisacodyl [Dulcolax (bisacodyl)] 10 mg PO DAILY PRN 03/22/19 03/22/19 History bisacodyl [Dulcolax (bisacodyl)] 10 mg [place] DAILY PRN 03/22/19 03/22/19 History ipratropium-albuterol 3 ml INHALATION Q4H PRN 03/22/19 03/22/19 History magnesium hydroxide [Milk of 30 ml PO DAILY PRN 03/22/19 03/22/19 History Magnesia] sodium phosphates [Fleet Enema] 118 ml [place] DAILY PRN 03/22/19 03/22/19 History Allergies Allergy/AdvReac Type Severity Reaction Status Date / Time sulfamethoxazole Allergy Severe ALGY-Anaphy Verified 03/15/19 12:14 [From Bactrim] laxis trimethoprim [From Bactrim] Allergy Severe ALGY-Anaphy Verified 03/15/19 12:14 laxis pantoprazole [From Protonix] Allergy Unknown Unknown Verified 03/15/19 20:58 PFSH Acute PFSH: Statuses (acute, chronic, etc) shown below reflect problem list status as previously entered and may not be historically accurate Medical History Abdominal aortic aneurysm (Acute) BPH (benign prostatic hyperplasia) (Acute) COPD (chronic obstructive pulmonary disease) (Acute) Muscular deconditioning (Acute ~03/15/19) Protein calorie malnutrition (Acute) Right lower lobe pneumonia (Acute) Skin cancer (Acute) Skin graft (allograft) (autograft) failure (Acute) Surgical History H/O hernia repair (Acute) Family History Father Cancer Prostate cancer Son Cancer Non-small cell lung cancer Social History (Reviewed 03/22/19 @ 16:48 by SHAWNA Dumont Smoking and tobacco status: former smoker Alcohol intake: former Caregiver/support person: Yes Lives independently: No Household members: family Vitals/I&O/Wt Last Vital Signs Temp 97.5 F L 03/22/19 08:58 Pulse 80 03/22/19 17:04 Resp 20 H 03/22/19 17:04 BP 158/65 03/22/19 17:04 Pulse Ox 99 03/22/19 17:04 Weight last 48 hrs Weight 114 lb Physical Exam Narrative: EXAM NARRATIVE: Elderly frail gentleman who appears chronically ill with advanced emphysematous lung disease. Const: COMMON NORMALS: no apparent distress and oriented x3 GENERAL APPEARANCE: cooperative, comfortable, ill appearing and frail appearing NUTRITIONAL APPEARANCE: underweight ORIENTATION/CONSCIOUSNESS: Yes awake, Yes oriented to person, Yes oriented to place and Yes oriented to time HENMT: COMMON NORMALS: normocephalic HEAD & SCALP: normocephalic Neck/C-Spine: COMMON NORMALS: no carotid bruits; negative for full ROM, negative for no lymphadenopathy and negative for supple GENERAL: Yes trachea midline Chest: COMMONS NORMALS: negative for inspection of chest normal (Increased AP diameter) and negative for palpation of chest normal (Increased tympany) CHEST: Yes symmetrical chest wall rise Resp: COMMON NORMALS: no retractions and clear to auscultation bilaterally EFFORT & INSPECTION: Yes able to speak in complete sentences and Yes tachypneic (Mild) AUSCULTATION: clear to auscultation bilaterally, no crackles and diminished lung sounds (In the bases bilaterally, consistent with the extensive bullous disease noted on CT scan of chest) Cardio: COMMON NORMALS: regular rate, regular rhythm, S1 normal heart sound and S2 normal heart sound; negative for no gallops and negative for no murmurs RATE: regular rate RHYTHM: regular rhythm HEART SOUNDS: S1 normal and S2 normal BRUITS: no abdominal aortic bruits, no carotid bruits and no femoral bruits GI: INSPECTION: Yes visible pulsation (Abdominal aortic aneurysm) AUSCULTATION: Yes normoactive bowel sounds PALPATION: No rebound tenderness present Neuro: COMMON NORMALS: oriented x3 SENSORIUM/ORIENTATION: Yes oriented to person, Yes oriented to place and Yes oriented to time Psych: COMMON NORMALS: mental status grossly normal, cooperative, affect normal and speech normal ATTITUDE: Yes calm SPEECH: Yes normal speech A&P Assessment and plan (1) AAA (abdominal aortic aneurysm) without rupture: 5 cm infrarenal abdominal aortic aneurysm with large mural thrombus I have recommended elective repair which we have tentatively scheduled for March 26. I would simultaneously perform bronchoscopy due to the right lower lobe infiltrate/mass. I have discussed this with Dr. Valero who is in concurrence. Rationale for this was carefully discussed with Mr. Cool and he is in agreement. Details and risks of the procedure were carefully and frankly discussed. Risks reviewed include the possibility of , stroke, heart attack, major bleeding, infection, pneumonia, organ failure, failure to benefit, prolonged hospital stay, pain after the procedure, need for further procedures, acute or chronic ischemia to the lower extremities requiring further procedures, including possible major amputation, need to open abdomen to complete procedure or control major bleeding, inability to complete the procedure, and possible need for long- term followup. All questions were answered. Appropriate consents will be provided for review and signature. Status: Acute Code(s): I71.4 - Abdominal aortic aneurysm, without rupture (2) Right lower lobe pneumonia: Due the appearance of his most recent CT scan, along with his substantial emphysematous disease, tobacco history, and weight loss, I recommend bronchoscopy under anesthesia at the time of our planned EVAR for his AAA. Rationale for this was carefully discussed with Mr. Cool and he is in agreement. Status: Acute Code(s): J18.9 - Pneumonia, unspecified organism Consult Attestations Medical Necessity Statement: Infrarenal abdominal aortic aneurysm Right lower lobe lung mass Time Spent in Patient Care: Greater than 35 minutes (70 minutes) Coding Level of Care Code Acute Potato Loader for Chg Fwd History Detailed Exam Detailed Medical Decision Making High Complexity Diagnoses AAA (abdominal aortic aneurysm) without rupture I71.4 Right lower lobe pneumonia J18.9 Time Spent (min) 70
[2019-03-22] MEDS: sodium chloride 0.9% 1,000 ML 100 ML IV (18:51)
[2019-03-22] MEDS: guaiFENesin 600 mg Tablet PO (18:52)
[2019-03-22] MEDS: predniSONE 10 mg Tablet 30 MG PO (18:52)
[2019-03-22] MEDS: levofloxacin-dextrose 5 % 750 MG/150 ML PREMIX 150 MG IV (18:54)
[2019-03-22] MEDS: ipratropium-albuterol 3 mL Neb INHALATION ×2 (19:42→23:30)
--- NOTE | 2019-03-22 22:28 | ECG_ITS ---
Measurements Intervals [place] Rate: 141 P: [place]: 0 QRS: 79 QRSD: 110 T: 89 QT: 266 QTc: 408 ATRIAL FIBRILLATION WITH RAPID VENTRICULAR RESPONSE with significant baseline artifact MODERATE VOLTAGE CRITERIA FOR LVH, CONSIDER NORMAL VARIANT [MEETS CRITERIA IN ONE OF: R(aVL), S(V1), R(V5), R(V5/V6)+S(V1)] NONSPECIFIC ST & T-WAVE ABNORMALITY ABNORMAL RHYTHM ECG Compared to ECG 03/15/2019 13:11:25 T-wave abnormality now present Sinus rhythm no longer present ST (T wave) deviation no longer present Electronically Signed On 03-23-2019 14:38:42 BILLING DEPARTMENT SUPERVISOR by James Bain M.D. [email or web address]: [id number]
--- NOTE | 2019-03-22 22:33 | XRR_ITS ---
PROCEDURE INFORMATION: Exam: XR Chest, 1 View Exam date and time: 03/22/2019 10:37 PM Age: 83 years old Clinical indication: Dyspnea; Additional info: Shortness of breath TECHNIQUE: Imaging protocol: XR of the chest Views: 1 view. COMPARISON: CR XR chest 1V portable [id number] 03/22/2019 10:24 AM FINDINGS: Lungs: See Pleural Space Finding. Pleural space: The right pneumothorax has increased significantly in size. Stable masslike consolidation in the right lung base. Increased atelectasis and volume loss in the right lung. Stable interstitial fibrosis in the left lung base. Emphysema. Heart/Mediastinum: Unremarkable. No cardiomegaly. Bones/joints: Unremarkable. XR/XR chest 1V portable [id number] IMPRESSION: 1. The previous right pneumothorax has increased significantly in size. Chest tube placement should be considered.
[2019-03-22] MEDS: ondansetron 2 mg/ML SDV 2 mL 4 MG IVP (22:43)
--- NOTE | 2019-03-22 22:49 | XR_ITS ---
WS: [id number] Portable AP upright chest, 03/22/2019, 2251 hours Clinical Data: thoracic vent placement Comparison: Portable chest, 03/22/2019, 2222 hours Findings: A small catheter has been placed into the right thoracic space in the right pneumothorax shah s reexpanded. There is a peripheral bleb in the right lower lobe. There is a small right effusion. Th e heart size remains normal. There is consolidation in the right lower lobe which could represent min imal pneumonia. The left lung is clear.Pulmonary vascularity is minimally increased. The aortic arch and descending aorta show tortuosity. There are monitor leads on the chest and abdominal wall. XR/XR chest 1V portable [id number] Impression: 1. Placement of small breast segment 2 which has reexpanded. Previously noted r ight pneumothorax. 2. Peripheral right lower lobe bleb and small right effusion are seen. 3. Minimal consolidation in the right lower lobe which could represent minimal pneumonia. 4. Atherosclerosis and mild pulmonary vascular congestion.
--- NOTE | 2019-03-22 22:51 | PM.OP ---
Operative Report Post-Operative Note: Date of procedure: 03/22/19 Preop Diagnosis: Large right pneumothorax with respiratory distress Post-op diagnosis: same Procedure Done: Right 13 Setswana thoracic vent placement Surgeon: Kade Prado Anesthesia: other (7 cc 1% lidocaine infiltrated locally) Complications: None: Post procedure chest x-ray pending Condition: stable Disposition: ICU Operative Report: Brief History: 83-year-old gentleman admitted earlier this evening upon presentation to emergency room with abdominal pain. During CT scan of the abdomen he was found to have a right-sided pneumothorax. Subsequent CT scan of the chest confirmed extensive emphysematous disease bilaterally with large bullous disease of the lower lobes bilaterally and a proximally 5 to 10% right pneumothorax. He was placed in the ICU for observation as he is also noted to have a 5 cm infrarenal abdominal aortic aneurysm and he is being prepared for elective endovascular repair of this aneurysm in the coming days. I was contacted by the nursing service that the patient developed acute respiratory distress with loss of breath sounds on the right. By phone, I ordered a stat chest x-ray and preparation for right thoracic vent placement. Upon my arrival Dr. Yoo in our ER staff physician were preparing for thoracostomy tube placement. Mr. Cool was clearly in respiratory distress with the tachycardia and saturations in the 70s. Procedure: Mr. Cool had been previously positioned and was being prepped. Due to his respiratory distress and extremis, I elected not to administer IV sedation. His right anterior chest wall was then sterilely prepped and draped. 1% lidocaine was infiltrated in the mid clavicular line over the second intercostal space. A #11 scalpel blade was used to incise the skin. Next, a trocar 13 Setswana thoracic vent was inserted through the incision and then by direct firm and controlled pressure into the right pleural space where the vent was advanced over the trocar as it was removed. There was a prompt return of air under pressure. The vent was secured to the skin with adhesive tabs and also with 2-0 silk suture. The vent was then connected to Pleur-evac suction where further air was evacuated. The patient had the expected pleuritic reaction with subsequent coughing which subsided over a few minutes. His respiratory status rapidly improved with O2 saturations reach in the mid upper 90s quite readily and his tachycardia decreasing to less than 110 bpm. It was noted that time that he was in atrial fibrillation. Dressings were secured. Breath sounds are now much improved. I reviewed the post procedure chest x-ray with Dr. Yoo which reveals near complete reexpansion of the right lung. She is making preparations to treat his atrial fibrillation for improved heart rate control. Coding Level of Care Code Acute Starcher And Tenter Range Feeder for Esperanza Corbin
--- NOTE | 2019-03-22 23:02 | P.PNCC_ITS ---
Critical Care Event Note Critical Care Event The high probability of a clinically significant, sudden or life threatening deterioration of the patient's cardiopulmonary system(s) required my full and direct attention, intervention and personal management. The critical care time is as shown. This time is in addition to time spent performing any reported procedures but includes the following: [x] Data and vital sign review and interpretation [x] Patient assessment, examination and intervention [x] Documentation [x] Medication orders and management Called that patient had had sudden onset of increasing difficulty breathing associated with heart rate up into the 170s and oxygen saturations as low as 70s . He had no breath sounds on the right side. He had had a small pneumothorax on the right side earlier. In addition to being tachycardic and hypoxic, patient was hypertensive. He was placed on a nonrebreather. Angiocath was obtained in the event it was needed emergently. I asked the ER doctor to come and assist as well as had nursing staff call in Dr. Prado. Both arrived very quickly. Patient was prepped for procedure and Dr. Prado placed a thoracic vent in the fourth intercostal space with immediate improvement in oxygen saturations. During this event patient went into atrial fibrillation with rapid ventricular response. I do not see that he was in atrial fibrillation prior to this. Post thoracic vent chest x-ray shows reexpansion of the lung. We had had a chest x-ray done at the time of the acute event that showed right lung collapse. There was no mediastinal shift. I am giving patient a 500 cc bolus of normal saline. I have ordered a small dose of diltiazem. I am assuming that this was set off by the acute respiratory issues but with a AAA we need to get his heart rate under control. If we do not get much response and will probably give him some amiodarone. EKG per my interpretation shows atrial fibrillation at [address] Prado's assistance. Have reviewed plans of care with nursing staff. We will continue to monitor patient closely. He is scheduled for AAA repair on Tuesday. Critical Care Time Critical Care Time: Code activated: No Critical care time: 30 - 74 mins Coding Level of Care Code Acute Vocational Training Instructor for Esperanza Corbin
[2019-03-22] MEDS: lidocaine 1% INJ 20 mL 10 ML INTRADERMA (23:20)
[2019-03-22] MEDS: fentaNYL 50 mcg/mL INJ 2mL 25 MCG IVP (23:26)
[2019-03-22] MEDS: sodium chloride 0.9% 500 ML 999 ML IV (23:32)
[2019-03-23] VITALS (27 sets, daily range): BP systolic 80–128; BP diastolic 52–84; PULSE 60–150; RESP 16–32; TEMP 36.6–36.8; O2SAT 86–100
--- NOTE | 2019-03-23 00:19 | PC.NURSE ---
Addendum entered by Myrna Mancia RN 03/23/19 01:27: After titrating to 6L NC and unable to obtain O2 saturation non-rebreather was placed at 15PLM. RT called stat to room. At time of event another IV access was obtained # 18gauge into right forearm. Original Note: At 2217 Called into room by another nurse new onset of SOB with hypoxia, c/o CP. Pt found tachycardia and afib with hypoxia and O2 sat of 82% on 2L.C/o mid chest pain. O2 titrated to 6L, absent breath sounds throughout on right side. Pt upright and in tripod position, Dr. Yoo notified of changes and admit of pnemothorax and came to bedside. Stat chest xray and EKG were obtained, Dr Baldwin called and placed emergent thoracic vent to right upper chest attached to pleuravac with suction. Pt status improved, breathing even and non-labored on 4L NC, hypoxia resolved. Tachycardia persists, Dr. Yoo to address tachycardia.
[2019-03-23] MEDS: sodium chloride 0.9% 500 ML IV (00:47)
--- NOTE | 2019-03-23 01:59 | PC.NURSE ---
Pt converted to SR at 0142 rate is no 80's-90's. Map is currently 67. Verbal orders to hold digoxin and levophed at this time. Amiodarone still continues to infuse at 1mg/hr.
--- NOTE | 2019-03-23 02:10 | PC.NURSE ---
Sinus rhythm rate in the high 60's. Dr. Yoo notified of HR decrease and verbally ordered amio to be titrated to 0.5mg/hr.
--- NOTE | 2019-03-23 02:32 | PC.NURSE ---
Bradycardia, HR is now in 50's with Amiodarone infusing at 0.5mg/hr. Dr. Yoo notified by phone received verbal orders to turn off amio drip at this time.
[2019-03-23] MEDS: ipratropium-albuterol 3 mL Neb INHALATION ×5 (03:40→19:56)
--- NOTE | 2019-03-23 04:17 | ECG_ITS ---
Measurements Intervals [place] Rate: 131 P: [place]: 0 QRS: 80 QRSD: 103 T: 99 QT: 232 QTc: 343 ATRIAL FIBRILLATION WITH RAPID VENTRICULAR RESPONSE, one PVC MARKED ST DEPRESSION, CONSIDER SUBENDOCARDIAL INJURY [0.2+ mV ST DEPRESSION] INTERPRETATION BASED ON A DEFAULT AGE OF 40 YEARS Compared to ECG 03/15/2019 13:11:25 Sinus rhythm no longer present Left ventricular hypertrophy no longer present ST (T wave) deviation still present Electronically Signed On 03-23-2019 14:38:59 PLANT GUARD by James Bain M.D. [email or web address]
[2019-03-23 04:58] LABS: Basophils % 0.2 %; Hematocrit 43.9 % (42.0-52.0); Hemoglobin 14.5 g/dL (11.7-16.6); Lymphocytes # 0.3 10^3/uL (0.8-4.8); Lymphocytes % 1.8 %; Mean Corpuscular Hemoglobin 31.3 pg (28.0-34.0); Mean Corpuscular Volume 94.6 fL (80-94); Mean Platelet Volume 10.4 fL (7.4-10.4); Monocytes # 0.7 10^3/uL (0.2-0.9); Monocytes % 4.3 %; Neutrophils # 15.7 10^3/uL (1.8-7.7); Neutrophils % 91.5 %; Nucleated Red Blood Cells % 0 %; Platelet Count 316 10^3/cmm (130-400); Red Blood Count 4.64 10^6/uL (4.1-5.3); Red Cell Distribution Width 13.2 % (12.1-15.1); White Blood Count 17.2 10^3/uL (4.0-10.0)
[2019-03-23 05:36] LABS: Anion Gap 12.9 (5-19); Blood Urea Nitrogen 19 mg/dL (8-23); Calcium 8.4 mg/Dl (8.8-10.2); Carbon Dioxide 22 mmol/L (22-29); Chloride 101 mmol/L (98-107); Glucose 153 mg/dL (74-106); Potassium 4.9 mmol/L (3.5-5.1); Sodium 131 mmol/L (136-145)
--- NOTE | 2019-03-23 06:00 | XR_ITS ---
WS: [id number] Portable AP upright chest, 03/23/2019, 0509 hours Clinical Data: Pneumothorax Comparison: Portable chest, 03/22/2019, 2251 hours. Findings: The right pneumothorax has recurred. The thoracic vent catheter remains in the same positio n. There is consolidation at the right lung base. The heart size remains the same. The left lung show s no changes. XR/XR chest 1V portable [id number] Impression: 1. Recurrence of right pneumothorax. 2. No change in right basilar consolidation.
--- NOTE | 2019-03-23 06:34 | P.PN_ITS ---
Subjective Subjective: Interval history: Mr. Cool rested well last night after decompression of his right pneumothorax and subsequent version of his atrial fibrillation back to sinus rhythm. Vital signs are stable this morning with adequate O2 saturation. He is noted to have a fairly substantial residual pneumothorax, and probably would benefit from a formal thoracostomy tube placement to replace this thoracic vent. X-ray interpretation is somewhat difficult because he has market bullous disease to. He still shows a substantial air leak on the thoracic vent. This may be a very difficult problem to manage. Vitals/I&O/Wt Last Vital Signs Temp 98.0 F 03/23/19 02:00 Pulse 65 03/23/19 06:00 Resp 23 H 03/23/19 06:00 BP 124/63 03/23/19 06:00 Pulse Ox 96 03/23/19 06:00 03/22/19 03/22/19 03/23/19 14:59 22:59 06:59 Intake Total 395 / 395 2078.050 / 2473.050 Output Total 250 / 250 559 / 809 Balance 145 / 145 1519.050 / 1664.050 Weight last 48 hrs Weight 115 lb 1.6 oz Weight 112 lb 8 oz Weight 114 lb Physical Exam Chest: COMMONS NORMALS: inspection of chest normal (Right thoracic vent is in place and appears to be functioning properly. There is only modest subcutaneous emphysema.) Resp: COMMON NORMALS: normal respiratory effort; negative for clear to auscultation bilaterally (He does have decreased breath sounds in the bases bilaterally consistent with his known marketed lower lobe bullous disease) EFFORT & INSPECTION: Yes able to speak in complete sentences and Yes symmetric chest movement AUSCULTATION: not clear to auscultation bilaterally (He does have decreased breath sounds in the bases bilaterally consistent with his known marketed lower lobe bullous disease) A&P Assessment and plan (1) Pneumothorax on right: Fairly substantial residual pneumothorax status post urgent decompression due to respiratory distress last night. I recommended formal thoracostomy tube placement be performed at bedside with anesthesia monitoring. We will tentatively plan for this around 11:00. Status: Acute Code(s): J93.9 - Pneumothorax, unspecified Attestations Medical Necessity Statement*: Pneumothorax on the right residual following urgent thoracostomy tube decompression last night 5 cm infrarenal AAA Time Spent in Patient Care: less than 15 minutes Coding Level of Care Code Acute Application Dba for Chg Fwd History Expanded Problem Focused Exam Expanded Problem Focused Medical Decision Making Moderate Complexity Diagnoses Pneumothorax on right J93.9
--- NOTE | 2019-03-23 08:26 | ANES.PREANES ---
Pre-Anesthetic Assessment Pre-Anesthetic Assessment: Height/Weight: Height 1.75 m Weight 52.208 kg Temp Pulse Resp BP Pulse Ox 98.0 F 64 16 124/63 96 03/23/19 02:00 03/23/19 07:55 03/23/19 07:55 03/23/19 06:00 03/23/19 07:55 Preop Diagnosis: Pneumothorax Proposed Procedure: Operation Date: 03/23/19 11:00 Proposed Procedures p Chest Tube Insertion(Right) - Kade Prado MD Operation Date: 03/26/19 13:00 Proposed Procedures p AAA Stent Cutdown(Not Applicable) - Kade Prado MD s Bronchoscopy (to be done before evar)(Not Applicable) - Kade Prado MD Familial anesthetic complications: none Was Beta Hope taken within 24 hours: N/A Exam: Pre-Anes Outpt Exam: alert, oriented x 3, clear to auscultation bilaterally and regular rate & rhythm Additional Exam Findings (including area of procedure): diminished breath sounds Airway: Cervical ROM: WNL MP: 2 Additional comments: uppper dentures Pulmonary: Pulmonary: COPD Comments: pneumonia, R pneumothorax with vent CV/HEM: CV/HEM: Afib (with RVR converted with amio) Comments: AAA (to be repaired endovascularly 03/25) : : None reported Hepatic: Hepatic: None reported GI: GI: GERD Metabolic: Metabolic: None reported Musc/skel: Musc/skel: Weakness Neuropsych: Neuropsych: None reported Anesthetic Plan: ASA status: IV Anesthesia: MAC Risk of > 500 ml blood loss (7ml/kg in children): No Meds/Allergies Current Medications: Current Medications Generic Name Dose Route Start Last Admin Trade Name Freq PRN Reason Stop Dose Admin Albuterol/Ipratrop ium 3 ml 03/22/19 16:59 03/23/19 07:31 Duoneb INHALATION 3 ml Q4H PRN Administration Shortness Of Cliff th Guaifenesin 600 mg 03/22/19 18:00 03/22/19 18:52 Mucinex PO 600 mg BID AIDE Administration Sodium Chloride 1,000 mls @ 100 m ls/hr 03/22/19 16:59 03/23/19 05:47 Sodium Chloride 0.9% IV Not Given .Q10H AIDE Levofloxacin/Dextr ose 750 mg in 150 mls @ 150 mls/hr 03/22/19 18:00 03/22/19 20:24 Levaquin-D5w IV Infused Q24H AIDE Infusion Protocol Amiodarone HCl 900 mg/ 518 mls @ 17.267 mls/hr 03/22/19 23:15 03/23/19 02:32 Dextrose/ IV Misce llaneous IV 0 mg/min Supplies .Q24H AIDE 0 mls/hr Infusion 0.5 MG/MIN Ondansetron HCl 4 mg 03/22/19 16:59 03/22/19 22:43 Zofran IVP 4 mg Q8H PRN Administration vomiting, or N/V if npo Prednisone 40 mg 03/22/19 18:00 03/22/19 18:52 Prednisone PO 04/16/19 17:59 40 mg DAILY AIDE Administration Taper Fluticasone/Salmet nora 1 puff 03/22/19 18:00 03/22/19 19:41 Advair Diskus 50 0-50 INHALATION 1 diskus BID AIDE Administration PFSH Anesthesia PFSH: Family History Father Cancer Prostate cancer Son Cancer Non-small cell lung cancer Social History Smoking and tobacco status: former smoker Alcohol intake: former Caregiver/support person: Yes Lives independently: No Household members: family Data Anesthesia Labs: Other Labs: Laboratory Results - last 48 hr 03/22/19 03/22/19 03/22/19 09:00 09:00 09:00 WBC 11.8 H RBC 5.35 H Hgb 16.6 Hct 50.4 MCV 94.2 H MCH 31.0 MCHC 32.9 RDW 13.0 Plt Count 393 MPV 9.8 Neut % (Auto) 77.1 Lymph % (Auto) 12.9 [place] % (Auto) 6.5 Eos % (Auto) 0.9 Baso % (Auto) 0.3 Neut # (Auto) 9.1 H Lymph # (Auto) 1.5 [place] # (Auto) 0.8 Eos # (Auto) 0.1 Baso # (Auto) 0.0 Nucleated RBC % (a uto) 0 Nucleated RBCs # 0.0 PT 12.80 INR 0.94 APTT 27.0 Sodium 137 Potassium 4.1 Chloride 97 L Carbon Dioxide 28 Anion Gap 16.1 BUN 16 Creatinine 0.9 Glucose 90 Calcium 10.0 Total Bilirubin 0.6 AST 25 ALT 56 H Alkaline Phosphata se 71 Total Protein 6.8 Albumin 4.2 Globulin 2.6 Urine Color Urine Appearance Urine pH Ur Specific Gravit y Urine Protein Urine Glucose (UA) Urine Ketones Urine Occult Blood Urine Nitrate Urine Bilirubin Urine Urobilinogen Ur Leukocyte Janis ase 03/22/19 03/23/19 03/23/19 09:50 03:40 03:40 WBC 17.2 H RBC 4.64 Hgb 14.5 Hct 43.9 MCV 94.6 H MCH 31.3 MCHC 33.0 RDW 13.2 Plt Count 316 MPV 10.4 Neut % (Auto) 91.5 Lymph % (Auto) 1.8 [place] % (Auto) 4.3 Eos % (Auto) 0.0 Baso % (Auto) 0.2 Neut # (Auto) 15.7 H Lymph # (Auto) 0.3 L [place] # (Auto) 0.7 Eos # (Auto) 0.0 Baso # (Auto) 0.0 Nucleated RBC % (a uto) 0 Nucleated RBCs # 0.0 PT INR APTT Sodium 131 L Potassium 4.9 Chloride 101 Carbon Dioxide 22 Anion Gap 12.9 BUN 19 Creatinine 0.9 Glucose 153 H Calcium 8.4 L Total Bilirubin AST ALT Alkaline Phosphata se Total Protein Albumin Globulin Urine Color Yellow Urine Appearance Clear Urine pH 7 Ur Specific Gravit y 1.005 Urine Protein Neg Urine Glucose (UA) Norm Urine Ketones Negative Urine Occult Blood Neg Urine Nitrate Negative Urine Bilirubin Neg Urine Urobilinogen Norm Ur Leukocyte Janis ase Negative Cardiac Studies: No Data to Display
[2019-03-23] MEDS: sodium chloride 0.9% 1,000 ML 100 ML IV ×2 (08:28→18:17)
[2019-03-23] MEDS: predniSONE 10 mg Tablet 30 MG PO (09:24)
[2019-03-23] MEDS: guaiFENesin 600 mg Tablet PO ×2 (09:25→18:17)
[2019-03-23] MEDS: tamsulosin 0.4 mg Capsule PO (09:25)
--- NOTE | 2019-03-23 11:31 | XR_ITS ---
WS: [id number] Portable AP upright chest, 03/23/2019, 1139 hours. Clinical Data: chest tube placement Comparison: Portable chest, today, 0509 hours. Findings: Large right chest tube has been inserted and it ends the inferior aspect of the right sixth rib. The right lung is completely reexpanded. There is still a right basilar consolidation. There is now a left pleural effusion. The heart size remains the same. Monitor leads are on the chest wall. XR/XR chest 1V portable [id number] Impression: 1. Insertion of large right chest tube and the pneumothorax has reexpanded. 2. No change in right basilar consolidation. 3. Small left pleural effusion.
--- NOTE | 2019-03-23 11:46 | PM.OP ---
Operative Report Post-Operative Note Date of procedure: 03/23/19 Preop Diagnosis: Recurrent right pneumothorax status post thoracic vent placement Post-op diagnosis: same Post-op Findings: Post procedure chest x-ray reveals resolution of the right pneumothorax except for a small apical ramp still remaining. Procedure Done: Right 28 Ukrainian thoracostomy tube placement Surgeon: Kade Prado Anesthesia: MAC (7 cc 1% lidocaine infiltrated locally) Complications: None: Post procedure chest x-ray reveals resolution of the pneumothorax except for a small apical rim Condition: stable Disposition: ICU Operative Report Brief History: 83-year-old gentleman presented with a small 5 to 10% pneumothorax and abdominal pain and is noted to have a 5 cm infrarenal abdominal aortic aneurysm. Last night he developed near complete collapse of his right lung and underwent urgent 13 Ukrainian thoracic vent placement with resolution. X-ray this morning reveals some recurrence of his pneumothorax at least 30 to 40%. I recommended a formal thoracostomy tube placement. Rationale was carefully discussed with the patient. Appropriate signs have been reviewed and signed. Procedure: Procedure: The patient was placed in the supine position with the right chest slightly elevated. IV conscious sedation using was given with continous monitoring of heart rate, rhythm, ekg, and O2 saturation. The entire left/right chest was thoroughly prepped and draped. 1% lidocaine was infiltrated in the midaxillary line over the seventh rib. A #15 scalpel blade was used to incise the skin, silk stay suture was placed, followed by utilizing a small hemostat to enter the pleural space with return of air. A drain was placed. Chest tube was secured to the skin followed by placement of sterile dressings. Chest tube is placed to Pleur-evac suction. A rather continuous air leak is noted as was noted with the thoracic vent. The patient tolerated the procedure well and chest x-ray revealed near complete resolution of the pneumothorax except for a small apical rim. We will leave chest tube to suction with planned serial chest x-rays. I then removed the 13 Ukrainian thoracic vent and placed an occlusive dressing. He tolerated the procedure well.
[2019-03-23] MEDS: lidocaine 1% INJ 20 mL 10 ML INTRADERMA (13:14)
--- NOTE | 2019-03-23 13:56 | P.PN_ITS ---
Subjective Subjective: Interval history: Patient awake in bed at time of exam earlier this morning. He reported that he began having sudden onset of shortness of breath last night, patient was noted to have worsening pneumothorax and therefore thoracic vent was placed by cardiothoracic surgeon. Patient subsequently went into atrial fibrillation with RVR was given Cardizem and amiodarone and converted to sinus rhythm. Patient reported that he was not having any shortness of breath this morning, denied any abdominal pain or nausea, noted discomfort only from the thoracic vent. Denied any abdominal pain Vitals/I&O/Wt Last Vital Signs Temp 97.8 F 03/23/19 08:00 Pulse 88 03/23/19 11:28 Resp 16 03/23/19 11:28 BP 112/57 03/23/19 08:00 Pulse Ox 97 03/23/19 11:28 03/22/19 03/23/19 03/23/19 22:59 06:59 14:59 Intake Total 395 / 395 2138.050 / 2533.050 120 / 120 Output Total 250 / 250 559 / 809 340 / 340 Balance 145 / 145 1579.050 / 1724.050 -220 / -220 Weight last 48 hrs Weight 52.208 kg Weight 51.029 kg Weight 51.71 kg Physical Exam Const: COMMON NORMALS: oriented x3 and alert GENERAL APPEARANCE: cooperative and frail appearing NUTRITIONAL APPEARANCE: thin ORIENTATION/CONSCIOUSNESS: Yes awake, Yes oriented to person, Yes oriented to place and Yes oriented to time HENMT: COMMON NORMALS: normocephalic and head/scalp atraumatic HEAD & SCALP: normocephalic and atraumatic Eye: COMMON NORMALS: PERRL PUPIL: Yes PERRL Neck/C-Spine: COMMON NORMALS: supple Resp: OTHER: Diminished breath sounds bilaterally with prolonged expiratory phase, thoracic vent in place on the anterior chest wall Cardio: COMMON NORMALS: regular rate, regular rhythm and no murmurs RATE: regular rate RHYTHM: regular rhythm GI: COMMON NORMALS: soft to palpation and non-tender INSPECTION: No abdominal distension AUSCULTATION: Yes normoactive bowel sounds PALPATION: Yes soft Extremity: COMMON NORMALS: no clubbing, cyanosis or edema and no calf tenderness Neuro: COMMON NORMALS: oriented x3, CN's II-XII intact bilaterally, moves all extremities and no focal motor deficits SENSORIUM/ORIENTATION: Yes alert, Yes oriented to person, Yes oriented to place and Yes oriented to time SPEECH: speech normal Psych: COMMON NORMALS: mental status grossly normal and cooperative Skin: COMMON NORMALS: no rashes or lesions noted GENERAL SKIN EXAM: no rashes or lesions noted A&P Assessment and plan (1) Pneumothorax on right: Worsening pneumothorax overnight, thoracic vent in place and transition to chest tube today by cardiothoracic surgery We will follow-up with recommendations from CT surgery Continued close monitoring in the ICU Status: Acute Code(s): J93.9 - Pneumothorax, unspecified (2) AAA (abdominal aortic aneurysm) without rupture: Patient with large abdominal aortic aneurysm, follow-up with recommendations by Dr. Prado. Initial plan for endograft on Tuesday, will depend on patient's further clinical progression Status: Acute Code(s): I71.4 - Abdominal aortic aneurysm, without rupture (3) Right lower lobe pneumonia: Consolidation in the right lower lobe, question of pneumonia versus consolidation due to underlying mass. Recommend further evaluation with bronchoscopy Continue on IV antibiotics Respiratory therapy to assess and treat Oxygen per protocol Status: Acute Code(s): J18.9 - Pneumonia, unspecified organism (4) COPD (chronic obstructive pulmonary disease): With acute exacerbation, continue on Levaquin and prednisone Status: Acute Code(s): J44.9 - Chronic obstructive pulmonary disease, unspecified Additional A&P Information Additional A&P Information: Atrial fibrillation with RVR: Due to acute event overnight, in sinus rhythm at this time we will continue to monitor closely. Will discuss DVT prophylaxis with cardiothoracic surgeon today. Attestations Medical Necessity Statement*: Patient requires further hospitalization due to abdominal aortic aneurysm with pneumothorax and severe COPD with acute exacerbation and complex pneumonia Coding Level of Care Code Acute Shipwright for [facility] Fwd Diagnoses Pneumothorax on right J93.9 AAA (abdominal aortic aneurysm) without rupture I71.4 Right lower lobe pneumonia J18.9 COPD (chronic obstructive pulmonary disease) J44.9
--- NOTE | 2019-03-23 15:40 | PC.CHAP ---
Pastoral Care Encounter/Spiritual Assessment Type of Contact [x] Declined bone char kiln tender visit [] Patient/Family/Request visit [] Outpatient visit [] Follow-up visit [] Physician referral [] Code/Alert [] Routine visit [] Staff referral [] Actively dying [] Patient sleeping [] Family support [] [] Out of room [] Palliative care [] [] Receiving care in room [] Pre-surgical visit [] Trauma [] Long length of stay [] ICU visit [] Other: Relational/Emotional Strength [] Patient feels connected with others/family/visitors/staff [] Distress [] Loneliness/isolation [] Abandonment Spirituality of Patient [] Person of Simi [] Attends Samaritan of their Simi [] Believes in Prayer [] Reads Bible or Presybeterian materials [] There are Spiritual issues to be addressed Compensation Coordinator Interventions [] Prayer [] Active listening [] Non-anxious presence [] Spiritual/emotional support [] Crisis/trauma care [] Spiritual counseling [] Bereavement support [] Provided bereavement packet [] Provided Bible/devotional materials [] Provided toy/stuffed animal, coloring book to patient or family member [] Completed spiritual assessment [] Provided Communion [] Anointing/[place] [] Salvation [] Other: Impact on Illness or Injury [] Angry [] Fearful [] Anxious [] Often cries [] Exhaustion [] Unable to work [] Unable to attend scientology [] Unable to walk/stand [] Unable to read [] Unable to drive [] Unable to eat/drink [] Unable to sleep [] Unable to be with family [] Other: Summary Time spent with patient patient stated that he was feeling better but declined Compensation Coordinator visits. 3 min.
--- NOTE | 2019-03-23 15:54 | PM.PACU ---
PACU note Post-Anesthesia Exam: awake and vital signs stable Disposition: other (STAYING IN ICU)
[2019-03-23] MEDS: levofloxacin-dextrose 5 % 750 MG/150 ML PREMIX 150 MG IV (18:17)
--- NOTE | 2019-03-23 20:04 | PC.NURSE ---
Update in status Upon assessment pt found to be more short of breath than at shift change. Observed desat in O@ sat of 87% on 2L. O2 was titrated to 4L at this time. Lung sounds to right were absent and the right lateral chest tube remains patent with 20mmhg of suction with grade 1 air leak. HR starts to increase to one hundred teens. Dr. Yoo notified by phone of concerns and stat chest xray was ordered. Pt was then placed on 15L oxymask for decreased O2 sat of 80% and increasing SOB.
--- NOTE | 2019-03-23 20:05 | XRR_ITS ---
PROCEDURE INFORMATION: Exam: XR Chest, 1 View Exam date and time: 03/23/2019 8:07 PM Age: 83 years old Clinical indication: Dyspnea; Prior surgery; Additional info: Desat, chest tube TECHNIQUE: Imaging protocol: XR of the chest Views: 1 view. COMPARISON: CR XR chest 1V portable [id number] 03/23/2019 11:37 AM FINDINGS: Tubes, catheters and devices: Stable right chest tube. Lungs: Mild left basilar atelectasis and/or infiltrate and/or effusion. Stable COPD . Pleural space: Unremarkable. No pleural effusion. No pneumothorax. Heart/Mediastinum: Interval appearance of 60-70% right tension pneumothorax with shift of the heart and mediastinum to the left. Bones/joints: Unremarkable. XR/XR chest 1V portable [id number] IMPRESSION: Interval appearance of 60-70% right tension pneumothorax with shift of the heart and mediastinum to the left.
[2019-03-23] MEDS: LORazepam 2 mg/mL INJ 1 mL 0.5 MG IVP (20:25)
[2019-03-23] MEDS: lidocaine 1% INJ 50 mL 10 ML INJECTION (20:40)
--- NOTE | 2019-03-23 20:55 | XRR_ITS ---
PROCEDURE INFORMATION: Exam: XR Chest, 1 View Exam date and time: 03/23/2019 9:21 PM Age: 83 years old Clinical indication: Device placement; Chest tube; Additional info: Post pig tain catheter placement TECHNIQUE: Imaging protocol: XR of the chest Views: 1 view. COMPARISON: CR (CHEST, ) 03/23/2019 8:07 PM FINDINGS: Tubes, catheters and devices: Placement of 2nd right pigtail chest tube with resolution of tension right pneumothorax. Lungs: Continued significant COPD. Pleural space: Unremarkable. No pleural effusion. No pneumothorax. Heart/Mediastinum: Unremarkable. No cardiomegaly. Bones/joints: Unremarkable. Soft tissues: Increased right chest wall soft tissue emphysema. XR/XR chest 1V portable [id number] IMPRESSION: Placement of 2nd right pigtail chest tube with resolution of tension right pneumothorax. Impression.
--- NOTE | 2019-03-23 20:57 | PM.CCN ---
Critical Care Event Note Critical Care Event The high probability of a clinically significant, sudden or life threatening deterioration of the patient's pulmonary system(s) required my full and direct attention, intervention and personal management. The critical care time is as shown. This time is in addition to time spent performing any reported procedures but includes the following: [x] Data and vital sign review and interpretation [x] Patient assessment, examination and intervention [x] Documentation [x] Medication orders and management Called at 20:04 with pt again having increased shortness of breath and decreased oxygen saturation. On arrival, sats upper 80s and HR 130s, SBP 110s. Increased work of breathing with retractions. No breath sounds right side. Stat pCXR per my interpretation with recurrent significant pneumothorax equal to last night, howing some tension. Chest tube in place with same continuous air leak as this am. No kinks in tubing. Looks to be functioning. No crepitus. Angiocath on hand if needed. Pt given a total of a mg ativan and 25 mcg fentanyl due to resp distress. Called ED provider to be on standby. Discussed with Dr. Baldwin and transfer iron operator surgery. Dr. Foster, pulmonology consulted and graciously came in emergently. Not sure why pneumothorax has recurred but has significant blebs on CT chest. May be related to this. Dr. Foster has put in a pig tail catheter with air ouput immediately noted. Stat repeat CXR pending. Current Hr down to 114. BP 95/61. Getting some fluids. Sats into 90s now. 21:34 CXR post tube with re-expansion of lung per my interpretation. Dr. Foster also on hand to interpret. HR down to 100. Breathing better. A few minutes after new tube placement, though, pt developed crepitus and swelling in right upper chest, axilla and around to right back. HR, BP and sats stable. May have been some suffusion of air during the procedure. New tube without air leak. Initial tube with large air leak. Getting fluid bolus ordered earlier. Manual BP 90s systolic. Repeating CXR. Son here and was updated on events by nursing during the procedure. He had concerns about pain medications given. Spoke with son briefly and son he remains at bedside. Pt received 25mcg fentanyl and a total of 1mg ativan during event. Pt remains on high flow oxygen presently. Will wean as able. Did not go into afib tonight. Will continue to monitor closely. Dr. Foster available if further needed for assistance. 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
--- NOTE | 2019-03-23 21:00 | PC.NURSE ---
Left AC IV leaky around catheter. IV removed, catheter intact. Site asymptomatic. IV restarted in left wrist # 20 gauage X 1 attempt. Pt tolerated well.
--- NOTE | 2019-03-23 21:41 | XRR_ITS ---
PROCEDURE INFORMATION: Exam: XR Chest, 1 View Exam date and time: 03/23/2019 9:43 PM Age: 83 years old Clinical indication: Device placement; Chest tube; Prior surgery; Additional info: Hypotension, large air leak, crepitus S/P new tube TECHNIQUE: Imaging protocol: XR of the chest Views: 1 view. COMPARISON: CR XR chest 1V portable [id number] 03/23/2019 9:05 PM FINDINGS: Tubes, catheters and devices: There are right-sided chest tubes. Lungs: COPD with diffuse fibrosis is noted. Pleural space: There is improved right tension pneumothorax and only small right basilar component remains. Small left pleural effusion. No left pneumothorax. Heart/Mediastinum: Unremarkable. No cardiomegaly. Bones/joints: Unremarkable. Soft tissues: There is subcutaneous emphysema. XR/XR chest 1V portable [id number] IMPRESSION: There is improved right tension pneumothorax and only small right basilar component remains.
--- NOTE | 2019-03-23 21:52 | PC.NURSE ---
At 2044 Dr. Foster consulted and at bedside to place second chest tube. Pt remains on high flow 15L oxymask. After placement and dressing of 2nd right anterior chest tube, chest xray verified at bedside with Dr. Yoo and Dr. Foster showed full lung re-expansion. Shortly after chest xray large amount of subcutaneous crepitus noted above chest tube and below clavicle right anterior lateral chest and wraps around to right posterior chest. Dr. Foster at bedside and aware. All crepitus marked with marker. Dr. Foster at bedside to see if crepitus worsens and did not. Breathing status is better non-labored still remains on 5L oxymask with O2 sat of 100%. Will titrate. Lung sounds diminished right sound and hard to auscultate due to subcutaneous emphysema. Nurse remains at bedside.
[2019-03-24] VITALS (19 sets, daily range): BP systolic 92–134; BP diastolic 53–66; PULSE 73–94; RESP 12–24; TEMP 36.4–36.9; O2SAT 92–100
[2019-03-24] MEDS: sodium chloride 0.9% 1,000 ML 100 ML IV ×3 (00:13→23:14)
[2019-03-24] MEDS: ipratropium-albuterol 3 mL Neb INHALATION ×5 (00:20→20:22)
--- NOTE | 2019-03-24 00:26 | PM.ACPR ---
Procedure/Consent Consent: Consent for Procedure: Agrees to proceed with procedure Additional Consent Information: verbal consent was obtained due to acuity of the situation Procedure Narrative: Name of the procedure: Right-sided pigtail catheter placement. Date and time: 03/23/2019, 9 PM Indication: Tension pneumothorax. Anesthesia: 1% lidocaine, 10 mL. Description of the procedure: The right fourth intercostal space in the midclavicular line was identified. The site was prepared using sterile technique. The skin and subcutaneous tissue and chest wall muscles are anesthetized with 1% lidocaine. The pleural space was entered and air was noted in the syringe. Using Seldinger technique the pigtail catheter was inserted. The catheter was secured by suture. Complication: None. Mild subcutaneous emphysema around the insertion site was noted postprocedure. Follow-up chest x-ray revealed improvement of the collapsed right lung and resolution of tension pneumothorax.
[2019-03-24 04:25] LABS: Basophils % 0.2 %; Hematocrit 38.4 % (42.0-52.0); Hemoglobin 12.4 g/dL (11.7-16.6); Lymphocytes # 0.6 10^3/uL (0.8-4.8); Lymphocytes % 4.7 %; Mean Corpuscular HGB Conc 32.3 g/dL (30.0-36.0); Mean Corpuscular Hemoglobin 29.8 pg (28.0-34.0); Mean Corpuscular Volume 92.3 fL (80-94); Mean Platelet Volume 10.2 fL (7.4-10.4); Monocytes # 1.3 10^3/uL (0.2-0.9); Monocytes % 10.1 %; Neutrophils # 10.5 10^3/uL (1.8-7.7); Neutrophils % 83.3 %; Nucleated Red Blood Cells % 0 %; Platelet Count 259 10^3/cmm (130-400); Red Blood Count 4.16 10^6/uL (4.1-5.3); Red Cell Distribution Width 13.2 % (12.1-15.1); White Blood Count 12.6 10^3/uL (4.0-10.0)
[2019-03-24 04:40] LABS: Anion Gap 13.2 (5-19); Blood Urea Nitrogen 20 mg/dL (8-23); Calcium 8.4 mg/Dl (8.8-10.2); Carbon Dioxide 24 mmol/L (22-29); Chloride 102 mmol/L (98-107); Glucose 118 mg/dL (74-106); Potassium 4.2 mmol/L (3.5-5.1); Sodium 135 mmol/L (136-145)
--- NOTE | 2019-03-24 06:00 | XRR_ITS ---
PROCEDURE INFORMATION: Exam: XR Chest, 1 View Exam date and time: 03/24/2019 12:00 AM Age: 83 years old Clinical indication: Device placement; Chest tube; Additional info: Status post thoracostomy tube placement for recurrent pneumothorax TECHNIQUE: Imaging protocol: XR of the chest Views: 1 view. COMPARISON: CR (CHEST, ) 03/23/2019 9:51 PM FINDINGS: Tubes, catheters and devices: Right thoracostomy tubes remain and are unchanged in position. Lungs: Bibasilar chronic interstitial lung disease is present. Pleural space: No pneumothorax identified. Cannot exclude small pleural effusions versus pleural thickening. Heart/Mediastinum: The heart is not enlarged. The mediastinal contours are normal. Bones/joints: No acute osseous abnormality. Soft tissues: There is subcutaneous emphysema in the right chest wall. XR/XR chest 1V portable [id number] IMPRESSION: No pneumothorax identified.
--- NOTE | 2019-03-24 07:47 | P.PN_ITS ---
Subjective Subjective: Interval history: Patient resting in bed at time of exam this morning. He reported having pain with deep inspiration. Patient had another pneumothorax last night and had second chest tube placed. Discussed with patient the concern for his severe COPD, bullous emphysema, and his AAA, discussed concerned that he may have continuous issues and surgery may not be as planned on Tuesday, will discuss with cardiothoracic surgery. Patient verbalized understanding. Vitals/I&O/Wt Last Vital Signs Temp 97.6 F 03/24/19 06:00 Pulse 73 03/24/19 07:43 Resp 16 03/24/19 07:43 BP 117/66 03/24/19 06:00 Pulse Ox 99 03/24/19 07:43 03/23/19 03/24/19 03/24/19 22:59 06:59 14:59 Intake Total 1131.667 / 7007.233 2610.666 / 2308.333 Output Total 547 / 887 884 / 1771 Balance 584.667 / 364.667 172.666 / 537.333 Weight last 48 hrs Weight 52.98 kg Weight 52.208 kg Weight 51.029 kg Weight 51.71 kg Physical Exam Const: COMMON NORMALS: oriented x3 and alert GENERAL APPEARANCE: cooperative and frail appearing NUTRITIONAL APPEARANCE: thin ORIENTATION/CONSCIOUSNESS: Yes awake, Yes oriented to person, Yes oriented to place and Yes oriented to time HENMT: COMMON NORMALS: normocephalic and head/scalp atraumatic HEAD & SCALP: normocephalic and atraumatic Eye: COMMON NORMALS: PERRL PUPIL: Yes PERRL Neck/C-Spine: COMMON NORMALS: supple GENERAL: Yes normal visual inspection Resp: COMMON NORMALS: normal respiratory effort AUSCULTATION: no rhonchi OTHER: Diminished breath sounds bilaterally with prolonged expiratory phase, [address] on the right thorax Cardio: COMMON NORMALS: regular rate, regular rhythm and no murmurs RATE: regular rate RHYTHM: regular rhythm GI: COMMON NORMALS: soft to palpation and non-tender INSPECTION: No abdominal distension AUSCULTATION: Yes normoactive bowel sounds PALPATION: Yes soft Extremity: COMMON NORMALS: no clubbing, cyanosis or edema and no calf tenderness NARRATIVE EXTREMITY EXAM: Muscle wasting in the lower extremities bilaterally Neuro: COMMON NORMALS: oriented x3, CN's II-XII intact bilaterally, moves all extremities and no focal motor deficits SENSORIUM/ORIENTATION: Yes alert, Yes oriented to person, Yes oriented to place and Yes oriented to time SPEECH: speech normal Psych: COMMON NORMALS: mental status grossly normal and cooperative Skin: COMMON NORMALS: no rashes or lesions noted GENERAL SKIN EXAM: no rashes or lesions noted A&P Assessment and plan (1) Pneumothorax on right: Patient had pneumothorax requiring chest tube placement on 03/23/2019, worsening pneumothorax again overnight requiring second chest tube placement. Appreciate consultation by Dr. Foster, critical care. We will follow-up with recommendations from CT surgery Continued close monitoring in the ICU Status: Acute Code(s): J93.9 - Pneumothorax, unspecified (2) AAA (abdominal aortic aneurysm) without rupture: Patient with large abdominal aortic aneurysm, follow-up with recommendations by Dr. Prado. Initial plan for endograft on Tuesday, will depend on patient's further clinical progression Status: Acute Code(s): I71.4 - Abdominal aortic aneurysm, without rupture (3) Right lower lobe pneumonia: Consolidation in the right lower lobe, question of pneumonia versus consolidation due to underlying mass. Recommend further evaluation with bronchoscopy Continue on IV antibiotics Respiratory therapy to assess and treat Oxygen per protocol Status: Acute Code(s): J18.9 - Pneumonia, unspecified organism (4) COPD (chronic obstructive pulmonary disease): With acute exacerbation, continue on Levaquin and prednisone Status: Acute Code(s): J44.9 - Chronic obstructive pulmonary disease, unspecified Additional A&P Information Additional A&P Information: Atrial fibrillation with RVR: Isolated episode following tension pneumothorax, now remains in sinus rhythm Attestations Medical Necessity Statement*: Patient requires further hospitalization due to severe bullous emphysema with pneumothorax requiring second chest tube placement and abdominal aortic aneurysm Coding Level of Care Code 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
[2019-03-24] MEDS: tamsulosin 0.4 mg Capsule PO (08:59)
[2019-03-24] MEDS: guaiFENesin 600 mg Tablet PO ×2 (08:59→17:38)
[2019-03-24] MEDS: predniSONE 10 mg Tablet 30 MG PO (08:59)
--- NOTE | 2019-03-24 10:08 | ANE.PACU ---
 Inpatient post-anesthesia follow up: Airway intact: Yes Vital signs: Temperature 97.6 F Pulse Rate [Apical ] 74 Pulse Rate [Monito r] 91 Pulse Rate [Left] 81 Pulse Rate 79 Respiratory Rate 16 Blood Pressure [Ri ght Arm] 117/66 Blood Pressure 158/65 Pulse Oximetry 99 Oxygen Delivery Me thod Oxymask Oxygen Flow Rate 4 Fraction of Inspir ed Oxygen Hydration adequate: Yes Nausea and vomiting: No Pain level: 2 Mental status: Baseline
--- NOTE | 2019-03-24 10:40 | P.PN_ITS ---
Subjective Subjective: Interval history: To be required last night due to appearance risk for difficulty in regards pneumothorax. Vitals/I&O/Wt Last Vital Signs Temp 97.6 F 03/24/19 06:00 Pulse 79 03/24/19 07:48 Resp 16 03/24/19 07:43 BP 117/66 03/24/19 06:00 Pulse Ox 99 03/24/19 07:43 03/23/19 03/24/19 03/24/19 22:59 06:59 14:59 Intake Total 1131.667 / 0777.950 5897.666 / 2308.333 876.667 / 876.667 Output Total 547 / 887 884 / 1771 120 / 120 Balance 584.667 / 364.667 172.666 / 537.333 756.667 / 756.667 Weight last 48 hrs Weight 116 lb 12.8 oz Weight 115 lb 1.6 oz Weight 112 lb 8 oz Physical Exam Narrative: EXAM NARRATIVE: Upon bedside review, the original chest tube continues to have a substantial air leak while the newly placed tube last night does not show any air leak. A&P Assessment and plan (1) Pneumothorax on right: I have conferred with my colleague, Dr. Valero today. Given the progressive respiratory difficulties and the need for 2 chest tubes, and also both her and my concern of a possible undiagnosed malignancy on the right side, I do not feel we should proceed with plans for EVAR for his infrarenal AAA. The more pressing concern is how to manage this marked air leak and debilitated lung. It may be more prudent to consider long-term management of this airleak with either Heimlich valve on the chest tube that is demonstrating air leak or placement of serial thoracic vent which might be easier to manage on outpatient basis. I will confer with my colleagues in pulmonary medicine, Dr. Foster as we attempt to find a most reasonable way to manage this very difficult situation. Status: Acute Code(s): J93.9 - Pneumothorax, unspecified Attestations Medical Necessity Statement*: Recurrent pneumothorax requiring thoracostomy tube. 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
[2019-03-24] MEDS: enoxaparin 40 mg/0.4 mL Syringe SUBCUT (15:15)
[2019-03-24] MEDS: levofloxacin-dextrose 5 % 750 MG/150 ML PREMIX 150 MG IV (17:38)
[2019-03-24] MEDS: HYDROcodone-acetaminophen 5-325 mg Tablet 1 TAB PO (17:39)
[2019-03-25] VITALS (20 sets, daily range): BP systolic 76–138; BP diastolic 53–69; PULSE 58–134; RESP 13–32; TEMP 36.2–36.9; O2SAT 87–100
[2019-03-25] MEDS: HYDROcodone-acetaminophen 5-325 mg Tablet 1 TAB PO ×4 (04:31→22:40)
[2019-03-25] MEDS: ipratropium-albuterol 3 mL Neb INHALATION ×5 (04:37→23:24)
[2019-03-25 05:24] LABS: Basophils % 0.1 %; Hematocrit 42.3 % (42.0-52.0); Hemoglobin 13.6 g/dL (11.7-16.6); Lymphocytes # 0.5 10^3/uL (0.8-4.8); Lymphocytes % 4.9 %; Mean Corpuscular HGB Conc 32.2 g/dL (30.0-36.0); Mean Corpuscular Hemoglobin 29.6 pg (28.0-34.0); Mean Platelet Volume 10.4 fL (7.4-10.4); Monocytes # 1.1 10^3/uL (0.2-0.9); Monocytes % 10.6 %; Neutrophils % 83.1 %; Nucleated Red Blood Cells % 0 %; Platelet Count 221 10^3/cmm (130-400); Red Cell Distribution Width 13.2 % (12.1-15.1); White Blood Count 10.8 10^3/uL (4.0-10.0)
[2019-03-25 05:42] LABS: Blood Urea Nitrogen 15 mg/dL (8-23); Calcium 8.4 mg/Dl (8.8-10.2); Carbon Dioxide 24 mmol/L (22-29); Chloride 100 mmol/L (98-107); Glucose 108 mg/dL (74-106); Sodium 134 mmol/L (136-145)
--- NOTE | 2019-03-25 06:55 | XRR_ITS ---
PROCEDURE INFORMATION: Exam: XR Chest, 1 View Exam date and time: 03/25/2019 7:30 AM Age: 83 years old Clinical indication: Shortness of breath; Additional info: Pneumothorax has chest tubes TECHNIQUE: Imaging protocol: XR of the chest Views: 1 view. COMPARISON: CR (CHEST, ) 03/24/2019 5:53 AM FINDINGS: Tubes, catheters and devices: Right chest tubes remain. Lungs: See Pleural Space Finding. Pleural space: Right-sided pneumothorax most noted superiorly with approximate 2.0 CM pleural separation. Small left pleural effusion. Opacity in the retrocardiac left lower lung and persisting consolidation of the right lower lung. Heart/Mediastinum: Cardiomegaly. Bones/joints: Osteopenia. Soft tissues: Prominent chest wall emphysema bilaterally greater on the right. Other findings: The chest is rotated. Gaseous distention of bowel upper abdomen. XR/XR chest 1V portable [id number] IMPRESSION: 1. Right superior pneumothorax which could be better demonstrated versus redevelopment. 2. Persistent consolidation of lower lungs and left effusion with intervally diminished or repositioned right small effusion.
[2019-03-25] MEDS: guaiFENesin 600 mg Tablet PO ×2 (09:11→17:55)
[2019-03-25] MEDS: predniSONE 10 mg Tablet 30 MG PO (09:11)
[2019-03-25] MEDS: tamsulosin 0.4 mg Capsule PO (09:11)
--- NOTE | 2019-03-25 09:57 | PM.PN ---
Subjective Subjective: Interval history: Patient awake sitting up in bed at time of exam this morning. He reported that his breathing feels better today. He denies any abdominal pain. He reports that pain medication is helping with the chest tube discomfort. Discussion with patient about his poor lung status and need for continued chest tube placement and further discussion with pulmonology as well as cardiothoracic surgery, discussed that plan at this time is to hold off on AAA endograft. Patient verbalized understanding and agreed with plan. Vitals/I&O/Wt Last Vital Signs Temp 97.6 F 03/25/19 08:00 Pulse 90 03/25/19 08:04 Resp 24 H 03/25/19 08:00 BP 122/69 03/25/19 08:00 Pulse Ox 98 03/25/19 08:00 03/24/19 03/25/19 03/25/19 22:59 06:59 14:59 Intake Total 1270.000 / 2566.667 968.333 / 3535.000 320 / 320 Output Total 680 / 1260 850 / 2110 240 / 240 Balance 590.000 / 1306.667 118.333 / 1425.000 80 / 80 Weight last 48 hrs Weight 52.98 kg Physical Exam Const: COMMON NORMALS: oriented x3 and alert GENERAL APPEARANCE: cooperative and frail appearing NUTRITIONAL APPEARANCE: thin ORIENTATION/CONSCIOUSNESS: Yes awake, Yes oriented to person, Yes oriented to place and Yes oriented to time HENMT: COMMON NORMALS: normocephalic and head/scalp atraumatic HEAD & SCALP: normocephalic and atraumatic Eye: COMMON NORMALS: PERRL PUPIL: Yes PERRL Neck/C-Spine: COMMON NORMALS: supple GENERAL: Yes normal visual inspection Resp: COMMON NORMALS: normal respiratory effort AUSCULTATION: no rhonchi OTHER: Diminished breath sounds bilaterally with prolonged expiratory phase, [address] on the right thorax Cardio: COMMON NORMALS: regular rate, regular rhythm and no murmurs RATE: regular rate RHYTHM: regular rhythm GI: COMMON NORMALS: soft to palpation and non-tender INSPECTION: No abdominal distension AUSCULTATION: Yes normoactive bowel sounds PALPATION: Yes soft Extremity: COMMON NORMALS: no clubbing, cyanosis or edema and no calf tenderness NARRATIVE EXTREMITY EXAM: Muscle wasting in the lower extremities bilaterally Neuro: COMMON NORMALS: oriented x3, CN's II-XII intact bilaterally, moves all extremities and no focal motor deficits SENSORIUM/ORIENTATION: Yes alert, Yes oriented to person, Yes oriented to place and Yes oriented to time SPEECH: speech normal Psych: COMMON NORMALS: mental status grossly normal and cooperative Skin: COMMON NORMALS: no rashes or lesions noted GENERAL SKIN EXAM: no rashes or lesions noted A&P Assessment and plan (1) Pneumothorax on right: Chest tubes remain in place, repeat chest x-ray this evening and again in the morning We will follow-up with cardiothoracic surgery and pulmonology recommendations. Patient with continued air leak and severe bullous emphysema Continued close monitoring in the ICU Status: Acute Code(s): J93.9 - Pneumothorax, unspecified (2) AAA (abdominal aortic aneurysm) without rupture: Patient with large abdominal aortic aneurysm, follow-up with recommendations by Dr. Prado. Plan to hold off on endograft at this time Status: Acute Code(s): I71.4 - Abdominal aortic aneurysm, without rupture (3) Right lower lobe pneumonia: Consolidation in the right lower lobe, question of pneumonia versus consolidation due to underlying mass. Continue on IV Levaquin at this time Respiratory therapy to assess and treat Oxygen per protocol Status: Acute Code(s): J18.9 - Pneumonia, unspecified organism (4) COPD (chronic obstructive pulmonary disease): With acute exacerbation, continue on Levaquin and prednisone Status: Acute Code(s): J44.9 - Chronic obstructive pulmonary disease, unspecified Additional A&P Information Additional A&P Information: Atrial fibrillation with RVR: Isolated episode following tension pneumothorax, now remains in sinus rhythm Generalized deconditioning and weight loss Attestations Medical Necessity Statement*: Patient requires continued hospitalization and monitoring in the ICU due to abdominal aortic aneurysm as well as pneumothorax requiring chest tube placement x2 Coding Level of Care Code 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
--- NOTE | 2019-03-25 12:02 | PC.CHAP ---
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 [] Patient/Family/Request visit [] Outpatient visit [] Follow-up visit [] Physician referral [] Code/Alert [] Routine visit [] Staff referral [] Actively dying [] Patient sleeping [] Family support [] [] Out of room [] Palliative care [] [] Receiving care in room [] Pre-surgical visit [] Trauma [] Long length of stay [] ICU visit [] Other: Relational/Emotional Strength [] Patient feels connected with others/family/visitors/staff [] Distress [] Loneliness/isolation [] Abandonment Spirituality of Patient [] Person of Simi [] Attends Shinto of their Simi [] Believes in Prayer [] Reads Bible or Temple materials [] There are Spiritual issues to be addressed Top Printing Press Operator Interventions [] Prayer [] Active listening [] Non-anxious presence [] Spiritual/emotional support [] Crisis/trauma care [] Spiritual counseling [] Bereavement support [] Provided bereavement packet [] Provided Bible/devotional materials [] Provided toy/stuffed animal, coloring book to patient or family member [] Completed spiritual assessment [] Provided Communion [] Anointing/[place] [] Salvation [] Other: Impact on Illness or Injury [] Angry [] Fearful [] Anxious [] Often cries [] Exhaustion [] Unable to work [] Unable to attend quaker [] Unable to walk/stand [] Unable to read [] Unable to drive [] Unable to eat/drink [] Unable to sleep [] Unable to be with family [] Other: Summary Time spent with patient
[2019-03-25] MEDS: enoxaparin 40 mg/0.4 mL Syringe SUBCUT (14:41)
--- NOTE | 2019-03-25 15:07 | DCPLANNER ---
Pg 2 of IM explained to and signed by pt. No questions, copy provided.
[2019-03-25] MEDS: levofloxacin-dextrose 5 % 750 MG/150 ML PREMIX 150 MG IV (17:55)
--- NOTE | 2019-03-25 18:00 | XRR_ITS ---
PROCEDURE INFORMATION: Exam: XR Chest, 1 View Exam date and time: 03/25/2019 10:04 AM Age: 83 years old Clinical indication: Condition or disease; Other: Chest tube; Additional info: Pneumothorax TECHNIQUE: Imaging protocol: XR of the chest Views: 1 view. COMPARISON: CR (CHEST, ) 03/25/2019 7:14 AM FINDINGS: Tubes, catheters and devices: Right chest tube is unchanged in position. Lungs: There are opacities at the bilateral lung bases which are similar to the prior study. Pleural space: Small right pneumothorax is similar to the prior study. Blunting of the left costophrenic angle is consistent with a small pleural effusion. Heart/Mediastinum: Cardiomegaly. Bones/joints: Osteopenia. Soft tissues: Extensive soft tissue emphysema is similar to the prior study. Other findings: There is gaseous distension of the bowel in the upper abdomen. XR/XR chest 1V portable [id number] IMPRESSION: 1. Small right pneumothorax is similar to the prior study. There is a right-sided chest tube in place. 2. Opacities at the bilateral lung bases are unchanged from the prior study. 3. Small left pleural effusion.
[2019-03-25] MEDS: saline nasal spray 44mL Btl 1 SPRAY NASAL (23:08)
[2019-03-26] VITALS (18 sets, daily range): BP systolic 101–119; BP diastolic 51–83; PULSE 88–119; RESP 17–28; TEMP 36.6–37; O2SAT 89–100
[2019-03-26 05:13] LABS: Hematocrit 45.3 % (42.0-52.0); Hemoglobin 14.7 g/dL (11.7-16.6); Lymphocytes # 0.5 10^3/uL (0.8-4.8); Lymphocytes % 4.3 %; Mean Corpuscular HGB Conc 32.5 g/dL (30.0-36.0); Mean Corpuscular Hemoglobin 30.6 pg (28.0-34.0); Mean Corpuscular Volume 94.4 fL (80-94); Mean Platelet Volume 10.3 fL (7.4-10.4); Monocytes # 1.1 10^3/uL (0.2-0.9); Monocytes % 9.7 %; Neutrophils # 9.2 10^3/uL (1.8-7.7); Neutrophils % 84.9 %; Nucleated Red Blood Cells % 0 %; Platelet Count 220 10^3/cmm (130-400); Red Cell Distribution Width 13.2 % (12.1-15.1); White Blood Count 10.9 10^3/uL (4.0-10.0)
[2019-03-26 05:40] LABS: Anion Gap 11.3 (5-19); Blood Urea Nitrogen 18 mg/dL (8-23); Calcium 8.9 mg/Dl (8.8-10.2); Carbon Dioxide 29 mmol/L (22-29); Chloride 99 mmol/L (98-107); Glucose 118 mg/dL (74-106); Potassium 4.3 mmol/L (3.5-5.1); Sodium 135 mmol/L (136-145)
[2019-03-26] MEDS: HYDROcodone-acetaminophen 5-325 mg Tablet 1 TAB PO ×4 (05:53→20:01)
--- NOTE | 2019-03-26 06:00 | XR_ITS ---
WS: [id number] CHEST XRAY TECHNIQUE: Portable chest. CLINICAL INFORMATION: pneumothorax COMPARISON: FINDINGS: Heart: Cardiomegaly. Aortic calcification. Lungs: Right chest tube and right chest catheter in place. Tiny residual right apical pneumothorax. T his is improved from previous. Subsegmental atelectasis/infiltrate right lung base medially. Subcutan eous emphysema right lateral chest wall. Bones: Normal visualized bony structures. XR/XR chest 1V portable [id number] IMPRESSION: 1. Right chest tube and right chest catheter in place. Improved tiny right api catherine pneumothorax 2. Cardiomegaly. 3. Patchy infiltrate/Subsegmental atelectasis in the right lung base medially unchanged.
--- NOTE | 2019-03-26 07:16 | PM.PN ---
Subjective Subjective: Interval history: No complaints this morning. Rested reasonably well last night. Does not complain of substantial dyspnea. Air leak noted in both chest tubes, greater on the original 28 Faroese. Vitals/I&O/Wt Last Vital Signs Temp 97.8 F 03/26/19 06:00 Pulse 88 03/26/19 06:00 Resp 19 H 03/26/19 06:00 BP 112/56 03/26/19 06:00 Pulse Ox 94 03/26/19 06:00 03/25/19 03/26/19 03/26/19 22:59 06:59 14:59 Intake Total 570 / 1561.667 100 / 1661.667 Output Total 590 / 1050 440 / 1490 Balance -20 / 511.667 -340 / 171.667 Weight last 48 hrs Weight 116 lb 8 oz Physical Exam Narrative: EXAM NARRATIVE: Subcutaneous emphysema is decreased both by exam and also by chest x-ray White count has decreased nicely. Resp: COMMON NORMALS: clear to auscultation bilaterally EFFORT & INSPECTION: Yes able to speak in complete sentences and No tracheal deviation AUSCULTATION: clear to auscultation bilaterally PERCUSSION: hyperresonance A&P Assessment and plan (1) Pneumothorax on right: Persistent and substantial air leak from both thoracic tubes, greater on the 28 Faroese tube. I will discuss with Dr. Foster, my pulmonary colleague today as to his opinion about the best way to handle this substantial problem. As I had stated previously we could consider Heimlich valve placement or subsequent placement of a thoracic vent to allow for better management. 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 I will wait and see the expertise of Dr. Foster in this matter. Status: Acute Code(s): J93.9 - Pneumothorax, unspecified (2) AAA (abdominal aortic aneurysm) without rupture: We will hold on consideration for elective endovascular pair of this AAA given his pulmonary difficulties. Status: Acute Code(s): I71.4 - Abdominal aortic aneurysm, without rupture Attestations Medical Necessity Statement*: Persistent air leak following spontaneous pneumothorax Time Spent in Patient Care: 16 - 35 minutes Coding Level of Care Code Established Pt Acute Data Analytics Specialist for Chg Fwd Patient Type Established Diagnoses Pneumothorax on right J93.9 AAA (abdominal aortic aneurysm) without rupture I71.4
[2019-03-26] MEDS: ipratropium-albuterol 3 mL Neb INHALATION ×4 (08:03→23:05)
--- NOTE | 2019-03-26 08:22 | CT_ITS ---
WS: [id number] CT CHEST TECHNIQUE: Contrast enhanced CT of the chest with coronal and sagittal reformatted images. CLINICAL INFORMATION: bullous lung disease with large airleak with 2 chest tubes COMPARISON: None. DLP: 438.[address] scans at [facility] use at least one of these dose optimization techniques: automat ed exposure control; mA and/or kV adjustment per patient size (includes targeted exams where dose is matched to clinical indication); or iterative reconstruction. FINDINGS: 2 right chest tubes in place and appear unchanged from earlier today. New collapse of the majority of the right lung medially with moderate to large right pneumothorax. This is increased since earlier t lalitha. Mild right to left mediastinal shift. Subcutaneous emphysema involving the right anterior chest and right lateral chest wall. Persistent small left greater than right pleural effusions. Subtotal c onsolidation right lower lobe. No discrete mass visualized. Small moderate left pleural effusion with bulla formation and air-fluid level. Subtotal atelectasis l eft lower lobe. Advanced chronic emphysematous changes. Vascular calcification including coronary. Small esophageal hiatal hernia. Peripherally calcified right renal cyst measuring 6.3 x 5.1 CM. Chronic appearing mild compression victor perior endplate T12. Notified Dr. Anjum Seth at 03/26/2019 11:[address]/CT chest w con* [id number] IMPRESSION: 1. Significant increase in the right pneumothorax since earlier today moderate to large with partial collapse of the right lung medially. Mild right to left mediastinal shift. Right chest tubes appear in place. 2. Subcutaneous emphysema right anterior chest and right lateral chest wall. 3. Small to moderate left pleural effusion with air-fluid level in a left bull a. Subsegmental consolidation/atelectasis in the lower lobes bilaterally. No di screte mass visualized. 4. Partially calcified right renal cyst measuring 6.3 x 5.1 cm
--- NOTE | 2019-03-26 09:08 | PM.PN ---
Subjective Subjective: Interval history: Patient awake in bed at time of exam this morning. Discussed with him plan for further evaluation of air leak from the right chest. Patient denies any abdominal pain, denies any chest pain other than from tube placement, reports that pain medication is helping with symptoms. Vitals/I&O/Wt Last Vital Signs Temp 97.8 F 03/26/19 06:00 Pulse 99 03/26/19 08:07 Resp 20 H 03/26/19 08:03 BP 112/56 03/26/19 06:00 Pulse Ox 92 03/26/19 08:03 03/25/19 03/26/19 03/26/19 22:59 06:59 14:59 Intake Total 570 / 1561.667 100 / 1661.667 Output Total 590 / 1050 440 / 1490 Balance -20 / 511.667 -340 / 171.667 Weight last 48 hrs Weight 52.844 kg Physical Exam Const: COMMON NORMALS: oriented x3 and alert GENERAL APPEARANCE: cooperative and frail appearing NUTRITIONAL APPEARANCE: thin ORIENTATION/CONSCIOUSNESS: Yes awake, Yes oriented to person, Yes oriented to place and Yes oriented to time HENMT: COMMON NORMALS: normocephalic and head/scalp atraumatic HEAD & SCALP: normocephalic and atraumatic Eye: COMMON NORMALS: PERRL PUPIL: Yes PERRL Neck/C-Spine: COMMON NORMALS: supple GENERAL: Yes normal visual inspection Resp: OTHER: Diminished breath sounds in the right chest, no wheezing, improved subcutaneous air over the right chest, chest tube x2 in place in the right chest Cardio: OTHER: Tachycardic, regular rhythm, no appreciable murmur GI: COMMON NORMALS: soft to palpation and non-tender INSPECTION: No abdominal distension AUSCULTATION: Yes normoactive bowel sounds PALPATION: Yes soft Extremity: COMMON NORMALS: no clubbing, cyanosis or edema and no calf tenderness NARRATIVE EXTREMITY EXAM: Muscle wasting in the lower extremities bilaterally Neuro: COMMON NORMALS: oriented x3, CN's II-XII intact bilaterally, moves all extremities and no focal motor deficits SENSORIUM/ORIENTATION: Yes alert, Yes oriented to person, Yes oriented to place and Yes oriented to time SPEECH: speech normal Psych: COMMON NORMALS: mental status grossly normal and cooperative Skin: COMMON NORMALS: no rashes or lesions noted GENERAL SKIN EXAM: no rashes or lesions noted A&P Assessment and plan (1) Pneumothorax on right: Chest tubes remain in place Plan to further evaluate with CT scan of the chest this morning to determine further management Will discuss further with Dr. Prado and Dr. Foster today air leak and severe bullous emphysema Continued close monitoring in the ICU Status: Acute Code(s): J93.9 - Pneumothorax, unspecified (2) AAA (abdominal aortic aneurysm) without rupture: Patient with large abdominal aortic aneurysm, follow-up with recommendations by Dr. Prado. Continue monitoring, due to above we will hold off on further intervention Status: Acute Code(s): I71.4 - Abdominal aortic aneurysm, without rupture (3) Right lower lobe pneumonia: Consolidation in the right lower lobe, question of pneumonia versus consolidation due to underlying mass. Continue on IV Levaquin at this time Respiratory therapy to assess and treat Oxygen per protocol Status: Acute Code(s): J18.9 - Pneumonia, unspecified organism (4) COPD (chronic obstructive pulmonary disease): With acute exacerbation, continue on Levaquin and prednisone Status: Acute Code(s): J44.9 - Chronic obstructive pulmonary disease, unspecified Additional A&P Information Additional A&P Information: Atrial fibrillation with RVR: Isolated episode after worsening pneumothorax, now remains in sinus rhythm Generalized deconditioning and weight loss Attestations Medical Necessity Statement*: Patient requires further hospitalization due to pneumothorax with continued air leak, needs continued ICU monitoring Coding Level of Care Code Acute Polyethylene Combiner for Chg Fwd Diagnoses Pneumothorax on right J93.9 AAA (abdominal aortic aneurysm) without rupture I71.4 Right lower lobe pneumonia J18.9 COPD (chronic obstructive pulmonary disease) J44.9
[2019-03-26] MEDS: predniSONE 10 mg Tablet 30 MG PO (09:35)
[2019-03-26] MEDS: guaiFENesin 600 mg Tablet PO ×2 (09:37→19:23)
[2019-03-26] MEDS: tamsulosin 0.4 mg Capsule PO (09:37)
[2019-03-26] MEDS: iohexol 300 mg/mL 100 mL Btl IV (10:15)
[2019-03-26] MEDS: lidocaine 1% INJ 20 mL 5 ML IV (14:00)
--- NOTE | 2019-03-26 14:49 | XR_ITS ---
WS: [id number] Portable AP upright chest, 03/26/2019, 1501 hours. Clinical Data: dual thoracic vent placement; ct removed Comparison: Portable chest, 03/26/2019, 0419 hours. Findings: The large right chest tube has been removed. There are 2 small apical thoracic vent tubes w hich have been inserted. There is a small right basilar chest tube which remains. There is still a ri ght pneumothorax of about 15-20%. The subcutaneous emphysema along the right chest for wall remains u nchanged. The left lung is fully expanded but there is a consolidation in the left base along with a left pleural effusion. The heart size remains the same. XR/XR chest 1V portable [id number] Impression: 1. Large chest tube removed and insertion of 2 small thoracic vent catheters in the superior aspect of the right thoracic space. 2. Small right basilar chest tube remains. 3. Right middle thorax remains unchanged. 4. Left basilar consolidation with partial atelectasis and small left effusion.
--- NOTE | 2019-03-26 14:50 | PM.OP ---
Operative Report Date of procedure: 03/26/19 Preop Diagnosis: Severe COPD with persistent air leak status post chest tube placement for pneumothorax Post-op diagnosis: same Procedure Done: 13 [place]ican thoracic vents placement x2 right anterior chest wall Surgeon: Kade Prado Anesthesia: other (IV conscious sedation anesthesia monitoring, 8 cc 1% lidocaine infiltrated locally) Complications: Post procedure chest x-ray pending Condition: stable Disposition: ICU Brief History: Mr. Cool is an 83-year-old gentleman presented with a small spontaneous pneumothorax which developed into a large pneumothorax requiring initially thoracic vent placement urgently and then subsequent change to 28 [place]ican chest tube and then followed by a second tube. Because of persistent and substantial air leak, we have recommended thoracic vent placement in an attempt to develop therapy that may be managed as an outpatient, as he is not a surgical candidate. Rationale for thoracic vent placement x2 was discussed, proper consents have reviewed and signed. I did speak with his son, Joseph by phone prior to the procedure as to recommendations, and he concurred. Procedure: After careful positioning, Mr. Cool received IV conscious sedation anesthesia monitoring to include continuous monitoring of heart rate, blood pressure, EKG, and O2 saturation. His right anterior chest wall was then sterilely prepped and draped. 1% lidocaine was infiltrated in the mid clavicular line over the second intercostal space. A #11 scalpel blade was used to incise the skin. Next, a trocar 13 [place]ican thoracic vent was inserted through the incision and then by direct firm and controlled pressure into the right pleural space where the vent was advanced over the trocar as it was removed. The vent was secured to the skin with adhesive tabs and also with 2-0 silk suture. A second 13 [place] thoracic vent was placed in a similar fashion just lateral to the first 1. The vents was then connected to Pleur-evac suction where further air was evacuated. Vital signs remained stable throughout the procedure. Dressings were secured. Chest x-ray is pending. I have conferred with my colleague, Dr. Foster, as to our procedure.
--- NOTE | 2019-03-26 15:03 | PC.NURSE ---
at 1400 dr. ye here for tube placement. or here to assist also. 2 right thoracic vent tubes placed. 100mg. propofl used for sedation. awakened easily. wanted to know when he was gonna do the job procedure was complete. new thoraseal chamber used air leak at #3 at least.
--- NOTE | 2019-03-26 15:52 | DCPLANNER ---
*IMM* Patient was given the Important message from [employer] initially on the March. It was not documented by this ghost writer, I also gave the patient an updated IMM today 03/26/19. Copy gave to Patient Original signed and in chart.
[2019-03-26] MEDS: enoxaparin 40 mg/0.4 mL Syringe SUBCUT (16:16)
[2019-03-26] MEDS: levofloxacin-dextrose 5 % 750 MG/150 ML PREMIX 100 MG IV (19:23)
[2019-03-27] VITALS (54 sets, daily range): BP systolic 97–141; BP diastolic 53–98; PULSE 92–133; RESP 12–34; TEMP 36.5–36.7; O2SAT 80–100; BMI 17.4
[2019-03-27] MEDS: HYDROcodone-acetaminophen 5-325 mg Tablet 1 TAB PO ×5 (00:32→19:54)
[2019-03-27] MEDS: ipratropium-albuterol 3 mL Neb INHALATION ×4 (03:26→20:05)
--- NOTE | 2019-03-27 06:27 | XR_ITS ---
WS: [id number] CHEST XRAY TECHNIQUE: Portable chest. CLINICAL INFORMATION: f/u to thoracic vents COMPARISON: FINDINGS: Heart: Normal cardiac silhouette. Aortic calcification. Lungs: Chronic emphysematous changes. A right chest catheters in place. Small right apical and latera l pneumothorax has improved since the prior chest CT. Improved aeration of the right lung. No mediast inal shift. Chronic emphysematous changes. Small left pleural effusion. Bibasilar atelectasis. Persis tent subsegmental atelectasis right lung base medially Bones: Normal visualized bony structures. XR/XR chest 1V portable [id number] IMPRESSION: 1. Small right apical and lateral pneumothorax improved since the prior chest CT. No mediastinal shift. 2. Right chest tubes in place. 3. Small left pleural effusion with subsegmental atelectasis left lower lobe.
--- NOTE | 2019-03-27 08:09 | P.PN_ITS ---
Subjective Subjective: Interval history: Back and patient awake sitting up in bed upon entering the room. He reports that pain is controlled with oral medications, denies any abdominal pain. He reports that his breathing appears to be at baseline, some pain with deep inspiration due to thoracic vent and chest tube. Vitals/I&O/Wt Last Vital Signs Temp 98.0 F 03/27/19 06:00 Pulse 117 H 03/27/19 06:00 Resp 22 H 03/27/19 06:00 BP 115/67 03/27/19 04:00 Pulse Ox 96 03/27/19 06:00 03/26/19 03/27/19 03/27/19 22:59 06:59 14:59 Intake Total 630 / 870 200 / 1070 Output Total 275 / 650 640 / 1290 200 / 200 Balance 355 / 220 -440 / -220 -200 / -200 Weight last 48 hrs Weight 53.479 kg Weight 52.844 kg Physical Exam Const: COMMON NORMALS: oriented x3 and alert GENERAL APPEARANCE: cooperative and frail appearing NUTRITIONAL APPEARANCE: thin ORIENTATION/CONSCIOUSNESS: Yes awake, Yes oriented to person, Yes oriented to place and Yes oriented to time HENMT: COMMON NORMALS: normocephalic and head/scalp atraumatic HEAD & SCALP: normocephalic and atraumatic Eye: COMMON NORMALS: PERRL PUPIL: Yes PERRL Neck/C-Spine: COMMON NORMALS: supple GENERAL: Yes normal visual inspection Resp: COMMON NORMALS: normal respiratory effort AUSCULTATION: no rhonchi OTHER: Thoracic vent over the anterior chest wall x2, chest tube in place on the right side, diminished breath sounds in the right chest Cardio: COMMON NORMALS: regular rate, regular rhythm and no murmurs RATE: regular rate RHYTHM: regular rhythm OTHER: Tachycardic, regular rhythm, no appreciable murmur GI: COMMON NORMALS: soft to palpation and non-tender INSPECTION: No abdominal distension AUSCULTATION: Yes normoactive bowel sounds PALPATION: Yes soft Extremity: COMMON NORMALS: no clubbing, cyanosis or edema and no calf tenderness NARRATIVE EXTREMITY EXAM: Muscle wasting in the lower extremities bilaterally Neuro: COMMON NORMALS: oriented x3, CN's II-XII intact bilaterally, moves all extremities and no focal motor deficits SENSORIUM/ORIENTATION: Yes alert, Yes oriented to person, Yes oriented to place and Yes oriented to time SPEECH: speech normal Psych: COMMON NORMALS: mental status grossly normal and cooperative Skin: COMMON NORMALS: no rashes or lesions noted GENERAL SKIN EXAM: no rashes or lesions noted A&P Assessment and plan (1) Pneumothorax on right: Continued air leak 1 chest tube remains in place, placement of 2 thoracic vents yesterday, chest x- ray shows continued pneumothorax and patient does have continued air leak as noted. Will follow up with recommendations from pulmonology and cardiothoracic surgery. Will discuss with case management for proper disposition planning, patient will need to can continue placement at residential facility following discharge Status: Acute Code(s): J93.9 - Pneumothorax, unspecified (2) AAA (abdominal aortic aneurysm) without rupture: Patient with large abdominal aortic aneurysm, follow-up with recommendations by Dr. Prado. Repair canceled due to continued air leak and pneumothorax Status: Acute Code(s): I71.4 - Abdominal aortic aneurysm, without rupture (3) Right lower lobe pneumonia: Consolidation in the right lower lobe, question of pneumonia versus consolidation due to underlying mass. CT scan of the chest performed yesterday, due to pneumothorax lung collapsed and difficult to obtain further imaging to determine characteristics of consolidation Continue on IV Levaquin at this time Respiratory therapy to assess and treat Oxygen per protocol Status: Acute Code(s): J18.9 - Pneumonia, unspecified organism (4) COPD (chronic obstructive pulmonary disease): With acute exacerbation, continue on Levaquin and prednisone Status: Acute Code(s): J44.9 - Chronic obstructive pulmonary disease, unspecified Additional A&P Information Atrial fibrillation with RVR: Isolated episode after worsening pneumothorax, remains in sinus rhythm Generalized deconditioning and weight loss Diet: N.p.o. at this time DVT prophylaxis: Lovenox CODE STATUS: Full code Attestations Medical Necessity Statement*: Patient requires continued hospitalization due to pneumothorax with persistent air leak and abdominal aortic aneurysm, severe bullous emphysema Coding Level of Care Code Acute Radiology Teacher for Chg Fwd Diagnoses Pneumothorax on right J93.9 AAA (abdominal aortic aneurysm) without rupture I71.4 Right lower lobe pneumonia J18.9 COPD (chronic obstructive pulmonary disease) J44.9
[2019-03-27] MEDS: predniSONE 10 mg Tablet 30 MG PO (08:24)
[2019-03-27] MEDS: tamsulosin 0.4 mg Capsule PO (08:24)
[2019-03-27] MEDS: guaiFENesin 600 mg Tablet PO ×2 (08:24→17:57)
--- NOTE | 2019-03-27 09:40 | PC.SOCIAL ---
IMM Update Pg 2 of IMM given and explained to patient who voiced understanding. Copy provided to patient.
--- NOTE | 2019-03-27 10:11 | PC.NURSE ---
here to see pt; instructed to clamp lower chest tube and get chest x-ray around noon or 1 to follow up in hopes of being able to discontinue chest tube and leave thoravents in place.
--- NOTE | 2019-03-27 12:00 | XR_ITS ---
WS: [id number] Portable AP upright chest, 03/27/2019, 1150 hours. Clinical Data: follow up chest tube Comparison: Portable chest, 03/27/2019, 0633 hours Findings: The 2 thoracic vent tubes in the right superior pleural space remain unchanged. There is a small left basilar chest tube. The right pneumothorax persists. Bibasilar atelectasis has not changed . There is a left pleural effusion unchanged. The heart size remains the same. The right lateral subc utaneous emphysema remains unchanged. There are monitor leads on the chest wall. XR/XR chest 1V portable [id number] Impression: No change from chest x-ray earlier in the day.
[2019-03-27] MEDS: enoxaparin 40 mg/0.4 mL Syringe SUBCUT (14:54)
--- NOTE | 2019-03-27 17:17 | PM.PN ---
Subjective Subjective: Interval history: Mr. Cool appears to be doing well. Vitals/I&O/Wt Last Vital Signs Temp 97.7 F 03/27/19 14:00 Pulse 117 H 03/27/19 16:00 Resp 18 03/27/19 16:00 BP 123/78 03/27/19 16:00 Pulse Ox 96 03/27/19 14:00 03/27/19 03/27/19 03/27/19 06:59 14:59 22:59 Intake Total 200 / 1070 120 / 120 Output Total 640 / 1290 500 / 500 100 / 600 Balance -440 / -220 -380 / -380 -100 / -480 Weight last 48 hrs Weight 117 lb 14.4 oz Weight 116 lb 8 oz Physical Exam Narrative: EXAM NARRATIVE: Thoracic Sheets and the remaining chest tube placed by Dr. Foster remains in place. A&P Assessment and plan (1) Pneumothorax on right: Respiratory status is the same. I have clamped his remaining chest tube. We will reassess in the morning with a repeat chest x-ray and bedside exam. If this is unchanged, I will plan to remove the chest tube placed by Dr. Foster and leave the thoracic VATS in place. I believe these can be better managed on outpatient setting. Status: Acute Code(s): J93.9 - Pneumothorax, unspecified Attestations Medical Necessity Statement*: Spontaneous right pneumothorax with persistent air leak Coding Level of Care Code Acute Transmission Mechanic for [facility] Diagnoses Pneumothorax on right J93.9
[2019-03-27] MEDS: levofloxacin-dextrose 5 % 750 MG/150 ML PREMIX 100 MG IV (17:57)
[2019-03-28] VITALS (18 sets, daily range): BP systolic 103–144; BP diastolic 64–87; PULSE 78–119; RESP 14–25; TEMP 36.3–36.5; O2SAT 92–100; BMI 17.2
[2019-03-28] MEDS: HYDROcodone-acetaminophen 5-325 mg Tablet 1 TAB PO ×4 (00:05→19:34)
[2019-03-28] MEDS: ipratropium-albuterol 3 mL Neb INHALATION ×4 (04:46→20:01)
--- NOTE | 2019-03-28 06:00 | XR_ITS ---
WS: [id number] CHEST XRAY TECHNIQUE: Portable chest. CLINICAL INFORMATION: chest tube clamped...for possible removal..vents remain COMPARISON: FINDINGS: Heart: Cardiomegaly. Aortic calcification. Lungs: Right chest tubes in place. Persistent small right apical and lateral pneumothorax appears sli ghtly improved. Persistent subsegmental atelectasis right lower lobe medially and left lower lobe. Sm all left pleural effusion. Subcutaneous emphysema right lateral chest wall. Bones: Normal visualized bony structures. XR/XR chest 1V portable [id number] IMPRESSION: 1. Slightly improved but persistent small right apical, lateral, and basilar p neumothorax. Chest catheters in place. 2. Persistent subsegmental atelectasis right lower lobe medially and left lowe r lobe. 3. Small left pleural effusion.
--- NOTE | 2019-03-28 06:31 | PM.PN ---
Subjective Subjective: Interval history: Uneventful night. No substantial pulmonary complaints. States he wishes to have a bowel movement this morning. Vitals/I&O/Wt Last Vital Signs Temp 97.7 F 03/27/19 20:00 Pulse 99 03/28/19 06:00 Resp 24 H 03/28/19 06:00 BP 106/68 03/28/19 06:00 Pulse Ox 96 03/28/19 06:00 03/27/19 03/27/19 03/28/19 14:59 22:59 06:59 Intake Total 120 / 120 150 / 270 100 / 370 Output Total 500 / 500 350 / 850 300 / 1150 Balance -380 / -380 -200 / -580 -200 / -780 Weight last 48 hrs Weight 116 lb 11.2 oz Weight 117 lb 14.4 oz Physical Exam Chest: OTHER: Still with some subcutaneous emphysema. The thoracic vents are in position as well as the remaining chest tube which have been placed by Dr. Foster. Resp: OTHER: He has distant breath sounds bilaterally which is unchanged from prior exams. He does not appear to be in any type of respiratory difficulties. Data Other Data: Other data: I have reviewed this morning's chest x-ray. It is essentially unchanged from previous. I did clamp his chest tube yesterday evening to see if the air leak can be maintained with a thoracic vent. This morning x-ray appears to be about the same as previous with the stable pneumothorax. Subcutaneous emphysema is noted. Tubes remain in same position. A&P Assessment and plan (1) Pneumothorax on right: Air leak is about the same. It appears that the pneumothorax is unchanged with the chest tube clamped and with the thoracic vent is open. I will plan to remove the chest tube this morning and assess the stability of our current situation utilizing the thoracic bands to control the air leak. I have conferred previously with Dr. Foster, who is in agreement with our current plans. Hopefully, we can develop a situation where the thoracic vent can be managed in outpatient setting such as his senior living care facility. I will plan to obtain a chest x-ray later and then if it remains stable our next step would be to attempt to determine his pulmonary stability with a thoracic vent off of suction and strictly to waterseal. Status: Acute Code(s): J93.9 - Pneumothorax, unspecified Attestations Medical Necessity Statement*: Persistent pneumothorax with continuous air leak Time Spent in Patient Care: 16 - 35 minutes Coding Level of Care Code Acute Salesperson Meats for Chg Fwd Diagnoses Pneumothorax on right J93.9
--- NOTE | 2019-03-28 07:43 | XR_ITS ---
WS: [id number] CHEST XRAY TECHNIQUE: Portable chest. CLINICAL INFORMATION: INCREASE SOB COMPARISON: 03 28,020 FINDINGS: Heart: Normal cardiac silhouette. Lungs: Chronic emphysematous changes. Removal of the pigtail pleural catheter. 2 right apical cathete rs in place. Persistent small right apical lateral and basilar pneumothorax. Persistent subsegmental atelectasis right lung base medially and left lower lobe. Small left pleural effusion. Persistent sub cutaneous emphysema right lateral chest wall. Bones: Normal visualized bony structures. 2. Persistent small right apical, lateral and basilar pneumothorax unchanged since 5:00 AM. 3. Subsegmental atelectasis right lower lobe medially and left lower lobe unchanged. 4. Small pleural effusion. XR/XR chest 1V portable [id number] IMPRESSION: 1. Interval removal of the right pigtail pleural catheter right apical thoraci c events in place.
[2019-03-28] MEDS: guaiFENesin 600 mg Tablet PO ×2 (09:40→18:20)
[2019-03-28] MEDS: predniSONE 10 mg Tablet 30 MG PO (09:40)
[2019-03-28] MEDS: tamsulosin 0.4 mg Capsule PO (09:41)
[2019-03-28] MEDS: metoprolol tartrate 25 mg Tablet 12.5 MG PO ×2 (13:02→18:20)
[2019-03-28] MEDS: sennosides-docusate Tablet 2 TAB PO (13:11)
--- NOTE | 2019-03-28 13:17 | PC.CHAP ---
Pastoral Care Encounter/Spiritual Assessment Type of Contact [] Declined urgent care physician visit [] Patient/Family/Request visit [] Outpatient visit [] Follow-up visit [] Physician referral [] Code/Alert [x] Routine visit [] Staff referral [] Actively dying [] Patient sleeping [] Family support [] [] Out of room [] Palliative care [] [] Receiving care in room [] Pre-surgical visit [] Trauma [] Long length of stay [x] ICU visit [] Other: Relational/Emotional Strength [x] Patient feels connected with others/family/visitors/staff [] Distress [] Loneliness/isolation [] Abandonment Spirituality of Patient [] Person of Simi [] Attends Religious of their Simi [] Believes in Prayer [] Reads Bible or Zoroastrian materials [x] There are Spiritual issues to be addressed Resident Advisor Interventions [] Prayer [x] Active listening [x] Non-anxious presence [x] Spiritual/emotional support [] Crisis/trauma care [] Spiritual counseling [] Bereavement support [] Provided bereavement packet [] Provided Bible/devotional materials [] Provided toy/stuffed animal, coloring book to patient or family member [x] Completed spiritual assessment [] Provided Communion [] Anointing/[place] [] Salvation [x] Other: Declined prayer Impact on Illness or Injury [] Angry [] Fearful [] Anxious [] Often cries [] Exhaustion [] Unable to work [] Unable to attend druze [] Unable to walk/stand [] Unable to read [] Unable to drive [] Unable to eat/drink [] Unable to sleep [] Unable to be with family [] Other: Summary The patient was alert and declined prayer. Time spent with patient 8 mins.
--- NOTE | 2019-03-28 14:23 | PM.PN ---
Subjective Subjective: Interval history: Abel reports his breathing is about the same. Of note, he went back into atrial fibrillation with rapid ventricular rate this morning after chest tube removal. Medications: Reviewed: Yes Vitals/I&O/Wt Last Vital Signs Temp 97.7 F 03/28/19 12:00 Pulse 119 H 03/28/19 12:00 Resp 24 H 03/28/19 12:00 BP 120/86 03/28/19 12:00 Pulse Ox 96 03/28/19 12:00 03/27/19 03/28/19 03/28/19 22:59 06:59 14:59 Intake Total 150 / 270 100 / 370 100 / 100 Output Total 350 / 850 300 / 1150 350 / 350 Balance -200 / -580 -200 / -780 -250 / -250 Weight last 48 hrs Weight 52.934 kg Weight 53.479 kg Physical Exam Narrative: EXAM NARRATIVE: General exam is a frail-appearing white male in no apparent distress Cardiovascular irregular, irregular with accelerated rate Lungs diminished breath sounds bilaterally. A few rhonchi and wheezes Abdomen is soft with positive bowel sounds Extremities no cyanosis clubbing or edema A&P Assessment and plan (1) Pneumothorax on right: Continued air leak Chest tube was removed today. Thoracic vents maintained, and close monitoring of patient through today. Appreciate pulmonary and cardiothoracic surgery input Overall will likely need some rehabilitation for his weakness. Status: Acute Code(s): J93.9 - Pneumothorax, unspecified (2) AAA (abdominal aortic aneurysm) without rupture: Patient with large abdominal aortic aneurysm, follow-up with recommendations by Dr. Prado. Repair canceled due to continued air leak and pneumothorax This will be readdressed as an outpatient Status: Acute Code(s): I71.4 - Abdominal aortic aneurysm, without rupture (3) Right lower lobe pneumonia: Consolidation in the right lower lobe, question of pneumonia versus consolidation due to underlying mass. CT scan of the chest performed yesterday, due to pneumothorax lung collapsed and difficult to obtain further imaging to determine characteristics of consolidation At this point plan to continue IV Levaquin Status: Acute Code(s): J18.9 - Pneumonia, unspecified organism (4) COPD (chronic obstructive pulmonary disease): Prednisone, pulmonary toilet Status: Acute Code(s): J44.9 - Chronic obstructive pulmonary disease, unspecified Additional A&P Information Atrial fibrillation with RVR: Isolated episode after worsening pneumothorax, remains in sinus rhythm. Atrial fibrillation has recurred. I have placed him on metoprolol and will monitor his response. Will check CBC, BMP, magnesium Weight loss, cachexia. 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
[2019-03-28] MEDS: enoxaparin 40 mg/0.4 mL Syringe SUBCUT (15:44)
[2019-03-28 15:48] LABS: Basophils % 0.1 %; Hematocrit 47.4 % (42.0-52.0); Hemoglobin 15.6 g/dL (11.7-16.6); Lymphocytes # 0.3 10^3/uL (0.8-4.8); Lymphocytes % 1.7 %; Mean Corpuscular HGB Conc 32.9 g/dL (30.0-36.0); Mean Corpuscular Volume 94.2 fL (80-94); Monocytes # 0.6 10^3/uL (0.2-0.9); Monocytes % 3.9 %; Neutrophils # 13.8 10^3/uL (1.8-7.7); Nucleated Red Blood Cells % 0 %; Platelet Count 207 10^3/cmm (130-400); Red Blood Count 5.03 10^6/uL (4.1-5.3); Red Cell Distribution Width 13.3 % (12.1-15.1)
[2019-03-28 15:49] LABS: Anion Gap 15.2 (5-19); Blood Urea Nitrogen 15 mg/dL (8-23); Calcium 9.5 mg/Dl (8.8-10.2); Carbon Dioxide 31 mmol/L (22-29); Chloride 95 mmol/L (98-107); Glucose 122 mg/dL (74-106); Magnesium 1.9 mg/dL (1.7-2.3); Potassium 5.2 mmol/L (3.5-5.1); Sodium 136 mmol/L (136-145)
[2019-03-28] MEDS: levofloxacin-dextrose 5 % 750 MG/150 ML PREMIX 100 MG IV (17:10)
[2019-03-29] VITALS (52 sets, daily range): BP systolic 91–147; BP diastolic 54–93; PULSE 70–134; RESP 16–32; TEMP 36.5–37.2; O2SAT 90–100
[2019-03-29 05:19] LABS: Anion Gap 15.2 (5-19); Blood Urea Nitrogen 21 mg/dL (8-23); Calcium 9.5 mg/Dl (8.8-10.2); Carbon Dioxide 30 mmol/L (22-29); Chloride 92 mmol/L (98-107); Glucose 90 mg/dL (74-106); Potassium 4.2 mmol/L (3.5-5.1); Sodium 133 mmol/L (136-145)
--- NOTE | 2019-03-29 07:57 | XR_ITS ---
WS: [id number] Portable AP upright chest, 03/29/2019 Clinical Data: ptx Comparison: Portable chest, 03/28/2019 Findings: The right pneumothorax remains unchanged. The 2 right the heart size is same. The pulmonary vascularity is not increased. Monitor leads are on the chest wall. Apical chest tubes are in positio n. There is a medial right basilar opacification and a larger medial left basilar opacification. Thes e opacifications may represent atelectasis and/or pneumonia. There is a left pleural effusion. Subcut aneous emphysema along the right chest wall remains unchanged. XR/XR chest 1V portable [id number] Impression: 1. No change in right pneumothorax. 2. No change in bibasilar opacifications. 3. No change in right subcutaneous emphysema.
[2019-03-29] MEDS: ipratropium-albuterol 3 mL Neb INHALATION ×4 (08:32→22:33)
[2019-03-29] MEDS: predniSONE 10 mg Tablet 30 MG PO (08:50)
[2019-03-29] MEDS: sennosides-docusate Tablet 2 TAB PO ×2 (08:51→17:30)
[2019-03-29] MEDS: guaiFENesin 600 mg Tablet PO ×2 (08:51→17:30)
[2019-03-29] MEDS: tamsulosin 0.4 mg Capsule PO (08:51)
[2019-03-29] MEDS: metoprolol tartrate 25 mg Tablet PO ×2 (08:51→17:30)
[2019-03-29] MEDS: aspirin 81 mg EC Tablet PO (09:01)
--- NOTE | 2019-03-29 09:05 | PM.PN ---
Subjective Subjective: Interval history: Mr. Cool has no complaints this morning. He tolerated breakfast well. Pulmonary status unchanged. This morning's chest x-ray is unchanged with a stable pneumothorax and the thoracic vents in place with airleak noted while on Pleur-evac suction. I have placed his thoracic vent to waterseal, but left him connected to the Pleur-evac. Interestingly, when placed to waterseal, there was not an immediate air leak and his pulmonary status did not appear to have changed. Vitals/I&O/Wt Last Vital Signs Temp 98.9 F 03/29/19 00:00 Pulse 112 H 03/29/19 08:35 Resp 22 H 03/29/19 08:32 BP 116/88 03/29/19 08:00 Pulse Ox 96 03/29/19 08:32 03/28/19 03/29/19 03/29/19 22:59 06:59 14:59 Intake Total 150 / 250 120 / 120 Output Total 200 / 550 450 / 1000 150 / 150 Balance -50 / -300 -450 / -750 -30 / -30 Weight last 48 hrs Weight 102 lb 14.4 oz Weight 116 lb 11.2 oz Physical Exam Narrative: EXAM NARRATIVE: Thoracic vent remain in similar position. Subcutaneous emphysema is moderately improved. Breath sounds are unchanged from prior exams. A&P Assessment and plan (1) Pneumothorax on right: I have conferred with Dr. Moe. We will leave the thoracic vent to waterseal at present to see if his pulmonary status remained stable and follow-up checks x-ray results. Currently continue with plans for outpatient management, depending on whether thoracic vent remain in position or not. Status: Acute Code(s): J93.9 - Pneumothorax, unspecified Attestations Medical Necessity Statement*: Pneumothorax with air leak Coding Level of Care Code Acute Death Claim Clerk for [facility] Diagnoses Pneumothorax on right J93.9
[2019-03-29] MEDS: HYDROcodone-acetaminophen 5-325 mg Tablet 1 TAB PO (09:17)
--- NOTE | 2019-03-29 09:38 | PC.SOCIAL ---
Pg 2 of [facility] was updated and copy provided, he nodded his head understanding.
--- NOTE | 2019-03-29 13:09 | XR_ITS ---
WS: [id number] Portable AP upright chest, 03/29/2019, 1314 hours. Clinical Data: pneumothorax - follow up Comparison: Portable chest, 03/29/2019, 0803 hours. Findings: The right pneumothorax remains the same. The 2 vent tubes in the superior aspect of the rig ht pleural space remain unchanged. There is a large amount of subcutaneous emphysema along the right chest wall which may be increasing. The basilar consolidation of the medial right lung base and the l eft lung base remain unchanged. The heart size and left pleural effusion remain the same. Monitor chavez ds on the chest wall. XR/XR chest 1V portable [id number] Impression: 1. No change in persistent right pneumothorax of approximately 20-25%. 2. Increasing right subcutaneous emphysema. 3. No change in bibasilar consolidation.
--- NOTE | 2019-03-29 14:29 | PC.CHAP ---
Pastoral Care Encounter/Spiritual Assessment Type of Contact [] Declined mobility developer visit [] Patient/Family/Request visit [] Outpatient visit [] Follow-up visit [] Physician referral [] Code/Alert [x] Routine visit [] Staff referral [] Actively dying [] Patient sleeping [] Family support [] [] Out of room [] Palliative care [] [] Receiving care in room [] Pre-surgical visit [] Trauma [] Long length of stay [x] ICU visit [] Other: Relational/Emotional Strength [] Patient feels connected with others/family/visitors/staff [] Distress [] Loneliness/isolation [] Abandonment Spirituality of Patient [] Person of Simi [] Attends Jew of their Simi [] Believes in Prayer [] Reads Bible or Christian materials [] There are Spiritual issues to be addressed City Sanitarian Interventions [] Prayer [x] Active listening [x] Non-anxious presence [x] Spiritual/emotional support [] Crisis/trauma care [] Spiritual counseling [] Bereavement support [] Provided bereavement packet [] Provided Bible/devotional materials [] Provided toy/stuffed animal, coloring book to patient or family member [x] Completed spiritual assessment [] Provided Communion [] Anointing/[place] [] Salvation [] Other: Impact on Illness or Injury [] Angry [] Fearful [x] Anxious [] Often cries [] Exhaustion [] Unable to work [] Unable to attend shinto [] Unable to walk/stand [] Unable to read [] Unable to drive [] Unable to eat/drink [] Unable to sleep [] Unable to be with family [] Other: Summary Patient declined prayer Time spent with patient 7 min
--- NOTE | 2019-03-29 15:17 | P.PN_ITS ---
Subjective Subjective: Interval history: Abel reports that he is doing okay. I have seen him multiple times during the day. He was short of breath around noon or so and suction had to be reinitiated with his chest tube. He felt better when this was reinitiated. Medications: Reviewed: Yes Vitals/I&O/Wt Last Vital Signs Temp 98.0 F 03/29/19 13:09 Pulse 106 H 03/29/19 14:18 Resp 27 H 03/29/19 14:18 BP 99/59 03/29/19 14:18 Pulse Ox 98 03/29/19 14:18 03/29/19 03/29/19 03/29/19 06:59 14:59 22:59 Intake Total 170 / 170 Output Total 450 / 1000 150 / 150 Balance -450 / -750 Weight last 48 hrs Weight 46.675 kg Weight 52.934 kg Physical Exam Narrative: EXAM NARRATIVE: General exam is moderate respiratory distress Cardiovascular irregular, irregular Lungs markedly diminished bibasilar Abdomen is soft with positive bowel sounds Extremities no cyanosis clubbing or edema A&P Assessment and plan (1) Pneumothorax on right: Continued air leak Thoracic vents maintained. 1 of his chest tubes was removed. Thoracic vents to suction, which was turned off today but required reinitiation. Appreciate cardiothoracic surgery input Overall will likely need some rehabilitation for his weakness. He was at [facility] but if he is potentially going to be discharged with thoracic vents for some time he may need long-term care hospital consideration Status: Acute Code(s): J93.9 - Pneumothorax, unspecified (2) AAA (abdominal aortic aneurysm) without rupture: Patient with large abdominal aortic aneurysm, follow-up with recommendations by Dr. Prado. Repair canceled due to continued air leak and pneumothorax This will be readdressed as an outpatient. Not appropriate for repair currently Status: Acute Code(s): I71.4 - Abdominal aortic aneurysm, without rupture (3) Right lower lobe pneumonia: Consolidation in the right lower lobe, question of pneumonia versus consolidation due to underlying mass. CT scan of the chest performed yesterday, due to pneumothorax lung collapsed and difficult to obtain further imaging to determine characteristics of consolidation Continue Levaquin Status: Acute Code(s): J18.9 - Pneumonia, unspecified organism (4) COPD (chronic obstructive pulmonary disease): Prednisone, pulmonary toilet Status: Acute Code(s): J44.9 - Chronic obstructive pulmonary disease, unspecified Additional A&P Information Atrial fibrillation with RVR: Isolated episode after worsening pneumothorax, remains in sinus rhythm. Atrial fibrillation has recurred. Metoprolol increased to 25 mg twice daily. This is controlling rhythm nicely. Aspirin 81 mg daily added. Not candidate for anticoagulation currently. Weight loss, cachexia. Discussed with dietary increasing calories Attestations Medical Necessity Statement*: Needs continued hospitalization in the ICU secondary to critical care needs of chest tube, respiratory failure, A. fib with RVR Critical Care Time: 35 minutes of critical care time secondary to respiratory failure management, adjustment of medicines with A. fib with RVR, evaluation of respiratory failure, chest tube placement in this patient with recurrent pneumothorax Coding Level of Care Code Acute Leaf Blender for [facility] Diagnoses Pneumothorax on right J93.9 AAA (abdominal aortic aneurysm) without rupture I71.4 Right lower lobe pneumonia J18.9 COPD (chronic obstructive pulmonary disease) J44.9
[2019-03-29] MEDS: enoxaparin 40 mg/0.4 mL Syringe SUBCUT (15:22)
[2019-03-29] MEDS: levofloxacin-dextrose 5 % 750 MG/150 ML PREMIX 100 MG IV (17:31)
[2019-03-30] VITALS (52 sets, daily range): BP systolic 99–120; BP diastolic 51–78; PULSE 74–130; RESP 16–28; O2SAT 82–100
[2019-03-30] MEDS: HYDROcodone-acetaminophen 5-325 mg Tablet 1 TAB PO (01:22)
--- NOTE | 2019-03-30 06:00 | XR_ITS ---
WS: [id number] CHEST XRAY TECHNIQUE: Portable chest. CLINICAL INFORMATION: Thoracic vents have now been placed to waterseal, and are off suction COMPARISON: 020 FINDINGS: Heart: Normal cardiac silhouette. Lungs: Chronic emphysematous changes. Persistent subcutaneous emphysema right lateral chest wall. Tho racic vent right lung apex unchanged. Right apical lateral pneumothorax has decreased slightly measur ing approximately 20%. Small left pleural effusion. Subsegmental atelectasis right lung base medially unchanged. Left lower lobe subsegmental atelectasis is unchanged. Bones: Lumbar curve convex right. XR/XR chest 1V portable [id number] IMPRESSION: 1. Right apical lateral pneumothorax is decreased slightly since yesterday oumou suring approximately 20%. 2. Persistent subcutaneous emphysema right hemithorax and lower neck. 3. Small left pleural effusion. 4. Persistent subsegmental atelectasis right lung base medially and left lower lobe.
[2019-03-30 06:23] LABS: Basophils % 0.1 %; Eosinophils # 0.1 10^3/uL (0.0-0.8); Eosinophils % 0.5 %; Hematocrit 41.2 % (42.0-52.0); Hemoglobin 13.5 g/dL (11.7-16.6); Lymphocytes # 0.6 10^3/uL (0.8-4.8); Lymphocytes % 5.4 %; Mean Corpuscular HGB Conc 32.8 g/dL (30.0-36.0); Mean Corpuscular Hemoglobin 30.8 pg (28.0-34.0); Mean Corpuscular Volume 93.8 fL (80-94); Mean Platelet Volume 10.7 fL (7.4-10.4); Monocytes % 8.5 %; Neutrophils # 9.6 10^3/uL (1.8-7.7); Neutrophils % 84.8 %; Nucleated Red Blood Cells % 0 %; Platelet Count 195 10^3/cmm (130-400); Red Blood Count 4.39 10^6/uL (4.1-5.3); Red Cell Distribution Width 13.4 % (12.1-15.1); White Blood Count 11.4 10^3/uL (4.0-10.0)
[2019-03-30 06:40] LABS: Blood Urea Nitrogen 21 mg/dL (8-23); Calcium 9.1 mg/Dl (8.8-10.2); Carbon Dioxide 30 mmol/L (22-29); Chloride 94 mmol/L (98-107); Glucose 116 mg/dL (74-106); Sodium 134 mmol/L (136-145)
--- NOTE | 2019-03-30 07:43 | P.PN_ITS ---
Subjective Subjective: Interval history: Abel reports he feels okay. He really did not tolerate discontinuing the suction to his chest tube yesterday. Medications: Reviewed: Yes Vitals/I&O/Wt Last Vital Signs Temp 97.9 F 03/29/19 17:18 Pulse 80 03/30/19 06:13 Resp 19 H 03/30/19 06:13 BP 102/55 03/30/19 06:13 Pulse Ox 99 03/30/19 06:13 03/29/19 03/30/19 03/30/19 22:59 06:59 14:59 Intake Total 240 / 410 Output Total 150 / 300 200 / 500 Balance 90 / 110 -200 / -90 Weight last 48 hrs Weight 87.997 kg Weight 46.675 kg Physical Exam Narrative: EXAM NARRATIVE: General exam is a frail-appearing white male in mild respiratory distress Cardiovascular regular rate and rhythm, heart sounds distant, 2 small vent chest tubes noted right chest Lungs markedly diminished breath sounds bilaterally Abdomen is soft, positive bowel sounds Extremities no cyanosis clubbing or edema Data : 03/30/19 05:15 03/30/19 05:15 A&P Assessment and plan (1) Pneumothorax on right: Continued air leak is noted today. He was hooked back up to suction yesterday. Appreciate cardiothoracic surgery input. Overall will likely need some rehabilitation for his weakness. He was at [facility] but if he is potentially going to be discharged with thoracic vents for some time he may need long-term care hospital consideration. Discharge planning is discussing with [facility] rehab Status: Acute Code(s): J93.9 - Pneumothorax, unspecified (2) AAA (abdominal aortic aneurysm) without rupture: Patient with large abdominal aortic aneurysm, follow-up with recommendations by Dr. Prado. Repair canceled due to continued air leak and pneumothorax This will be readdressed as an outpatient. Not appropriate for repair at this time with current respiratory issues Status: Acute Code(s): I71.4 - Abdominal aortic aneurysm, without rupture (3) Right lower lobe pneumonia: Consolidation in the right lower lobe, question of pneumonia versus consolidation due to underlying mass. CT scan of the chest performed yesterday, due to pneumothorax lung collapsed and difficult to obtain further imaging to determine characteristics of consolidation Continue Levaquin Status: Acute Code(s): J18.9 - Pneumonia, unspecified organism (4) COPD (chronic obstructive pulmonary disease): Prednisone, pulmonary toilet Status: Acute Code(s): J44.9 - Chronic obstructive pulmonary disease, unspecified Additional A&P Information Atrial fibrillation with RVR has had several episodes, and is now converted back to sinus rhythm. Metoprolol increased to 25 mg twice daily. This is controlling rhythm nicely. Aspirin 81 mg daily added. Not candidate for anticoagulation currently. Weight loss, cachexia. Discussed with dietary increasing calories Physical therapy to work with the patient Possible transfer out of ICU today. No need for laboratory tomorrow Attestations Medical Necessity Statement*: Needs continued hospitalization for close monitoring secondary to pneumothorax, in this patient with bilateral chest tubes. Coding Level of Care Code Acute Mechanic Insulator for [facility] Diagnoses Pneumothorax on right J93.9 AAA (abdominal aortic aneurysm) without rupture I71.4 Right lower lobe pneumonia J18.9 COPD (chronic obstructive pulmonary disease) J44.9
[2019-03-30] MEDS: ipratropium-albuterol 3 mL Neb INHALATION ×3 (07:52→20:01)
[2019-03-30] MEDS: sennosides-docusate Tablet 2 TAB PO ×2 (10:05→17:23)
[2019-03-30] MEDS: predniSONE 10 mg Tablet 30 MG PO (10:05)
[2019-03-30] MEDS: tamsulosin 0.4 mg Capsule PO (10:05)
[2019-03-30] MEDS: metoprolol tartrate 25 mg Tablet PO ×2 (10:06→17:23)
[2019-03-30] MEDS: aspirin 81 mg EC Tablet PO (10:06)
[2019-03-30] MEDS: guaiFENesin 600 mg Tablet PO ×2 (10:07→17:23)
--- NOTE | 2019-03-30 14:38 | PM.PN ---
Subjective Subjective: Interval history: Mr. Cool has no new complaints today. He does have more septated emphysema though his x-ray is about the same. He has a persistent air leak which is unchanged. He is now 4 days status post thoracic vent placement x2 to the right anterior chest wall. I have personally reviewed his most recent chest x-ray. Small pneumothorax persists but is really of not much change. Apparently, while on waterseal, his subcutaneous emphysema did increase though his parenchymal portion of the x-ray was about the same. Vitals/I&O/Wt Last Vital Signs Temp 97.9 F 03/29/19 17:18 Pulse 83 03/30/19 14:14 Resp 20 H 03/30/19 14:11 BP 103/68 03/30/19 14:00 Pulse Ox 94 03/30/19 14:11 03/29/19 03/30/19 03/30/19 22:59 06:59 14:59 Intake Total 240 / 410 500 / 500 Output Total 150 / 300 200 / 500 300 / 300 Balance 90 / 110 -200 / -90 200 / 200 Weight last 48 hrs Weight 194 lb Weight 102 lb 14.4 oz Physical Exam Chest: COMMONS NORMALS: negative for inspection of chest normal (Subcutaneous emphysema) Resp: EFFORT & INSPECTION: Yes prolonged expiratory phase AUSCULTATION: abnormal I/E ratio and diminished lung sounds (Bilaterally, unchanged) bilateral Data : 03/30/19 05:15 03/30/19 05:15 A&P Assessment and plan (1) Pneumothorax on right: I have conferred with my colleague Dr. Moe. We are still awaiting evaluations for possible placement. Mr. Cool remained stable. He has surprisingly very modest dyspnea though his activity is substantially limited due to the thoracic vent placement. We will try to increase his activity in the room. We will attempt waterseal again tomorrow. Status: Acute Code(s): J93.9 - Pneumothorax, unspecified Attestations Medical Necessity Statement*: Spontaneous pneumothorax with persistent air leak and severe emphysematous lung disease Time Spent in Patient Care: less than 15 minutes Coding Level of Care Code Acute Manipulative Therapy Specialist for [facility] Diagnoses Pneumothorax on right J93.9
[2019-03-30] MEDS: enoxaparin 40 mg/0.4 mL Syringe SUBCUT (16:04)
[2019-03-30] MEDS: levofloxacin-dextrose 5 % 750 MG/150 ML PREMIX 100 MG IV (17:23)
[2019-03-31] VITALS (26 sets, daily range): BP systolic 89–131; BP diastolic 47–70; PULSE 73–110; RESP 14–35; TEMP 36.5–36.9; O2SAT 70–99
--- NOTE | 2019-03-31 06:02 | XRR_ITS ---
PROCEDURE INFORMATION: Exam: XR Chest, 1 View Exam date and time: 03/31/2019 5:10 AM Age: 83 years old Clinical indication: Device placement; Chest tube; Additional info: Pneumothorax TECHNIQUE: Imaging protocol: XR of the chest Views: 1 view. COMPARISON: CR XR chest 1V portable [id number] 03/30/2019 5:14 AM FINDINGS: Two chest tubes overlying the right lung apex, similar to prior study. Moderate atelectasis and/or pneumonia at bilateral lung bases, similar to prior study. Moderate right apical-lateral pneumothorax, similar to prior study. Small left pleural effusion, similar to prior study. Pulmonary vasculature within normal limits. Large amount of subcutaneous emphysema in the right hemithorax, overall decreased from prior study. XR/XR chest 1V portable [id number] IMPRESSION: 1. Moderate right apical-lateral pneumothorax, similar to prior study. 2. Moderate atelectasis and/or pneumonia at bilateral lung bases, similar to prior study. 3. Small left pleural effusion, similar to prior study. 4. Large amount of subcutaneous emphysema in the right hemithorax, overall decreased from prior study.
[2019-03-31] MEDS: predniSONE 10 mg Tablet 30 MG PO (08:43)
[2019-03-31] MEDS: aspirin 81 mg EC Tablet PO (08:44)
[2019-03-31] MEDS: tamsulosin 0.4 mg Capsule PO (08:44)
[2019-03-31] MEDS: sennosides-docusate Tablet 2 TAB PO ×2 (08:44→17:40)
[2019-03-31] MEDS: metoprolol tartrate 25 mg Tablet PO ×2 (08:44→17:40)
[2019-03-31] MEDS: HYDROcodone-acetaminophen 5-325 mg Tablet 1 TAB PO ×2 (08:44→20:02)
[2019-03-31] MEDS: guaiFENesin 600 mg Tablet PO ×2 (08:44→17:40)
[2019-03-31] MEDS: ipratropium-albuterol 3 mL Neb INHALATION ×2 (08:49→19:32)
--- NOTE | 2019-03-31 09:00 | PC.SOCIAL ---
IMM Updated Page 2 of IMM updated and given to patient. Initialed, dated, and timed and placed back in chart.
--- NOTE | 2019-03-31 10:41 | PM.PN ---
Subjective Subjective: Interval history: 5 days status post dual right thoracic vent placement Clinically he is unchanged. Chest x-ray is unchanged with a apical lateral pneumothorax. Subtendinous emphysema is improved. He still shows a substantial air leak while on thoracic vent suction. Options for out of hospital management are still being evaluated. He is up in chair and looks very alert and engaging. Overall, he actually looks modestly improved. Vitals/I&O/Wt Last Vital Signs Temp 98.2 F 03/31/19 06:00 Pulse 109 H 03/31/19 08:54 Resp 17 03/31/19 08:51 BP 131/70 03/31/19 06:00 Pulse Ox 94 03/31/19 08:51 03/30/19 03/31/19 03/31/19 22:59 06:59 14:59 Intake Total 300 / 800 300 / 300 Output Total 410 / 710 Balance 300 / 500 -410 / 90 300 / 300 Weight last 48 hrs Weight 101 lb Weight 194 lb Physical Exam Chest: CHEST: Yes abnormal inspection of the chest swelling (Subtendinous emphysema anteriorly and laterally, though actually improved) Resp: COMMON NORMALS: normal respiratory effort EFFORT & INSPECTION: Yes prolonged expiratory phase AUSCULTATION: diminished lung sounds bilateral (bases) Data : 03/30/19 05:15 03/30/19 05:15 A&P Assessment and plan (1) Pneumothorax on right: 5 days status post dual thoracic vent placement for large pneumothorax with large air leak. Currently being maintained on suction. I will discuss with Dr. Moe about placing on waterseal to assess stability of this pulmonary situation. Placement options are still being evaluated. Status: Acute Code(s): J93.9 - Pneumothorax, unspecified Attestations Medical Necessity Statement*: Right pneumothorax with large air leak and dual thoracic vent placement Time Spent in Patient Care: less than 15 minutes Coding Level of Care Code Acute Insurance Law Specialist [facility] Diagn[facility] Pneumothorax on right J93.9
--- NOTE | 2019-03-31 12:33 | PM.PN ---
Subjective Subjective: Interval history: Abel reports he is doing okay. Denies being short of breath currently. Chest vents to suction still noted. Medications: Reviewed: Yes Vitals/I&O/Wt Last Vital Signs Temp 97.7 F 03/31/19 08:00 Pulse 82 03/31/19 11:00 Resp 22 H 03/31/19 11:00 BP 102/59 03/31/19 11:00 Pulse Ox 97 03/31/19 11:00 03/30/19 03/31/19 03/31/19 22:59 06:59 14:59 Intake Total 450 / 950 600 / 600 Output Total 410 / 710 150 / 150 Balance 450 / 650 -410 / 240 450 / 450 Weight last 48 hrs Weight 45.813 kg Weight 87.997 kg Physical Exam Narrative: EXAM NARRATIVE: General exam is a frail-appearing white male in no respiratory distress Cardiovascular regular rate and rhythm, heart sounds distant, 2 small vent chest tubes noted right chest Lungs diminished breath sounds bilaterally Abdomen is soft, positive bowel sounds Extremities no cyanosis clubbing or edema Data : 03/30/19 05:15 03/30/19 05:15 A&P Assessment and plan (1) Pneumothorax on right: Continued air leak is noted today. Ridging. [facility]. Overall will likely need some rehabilitation for his weakness. He was at [facility] but if he is potentially going to be discharged with thoracic vents for some time he may need long-term care hospital consideration. Discharge planning is under evaluation Status: Acute Code(s): J93.9 - Pneumothorax, unspecified (2) AAA (abdominal aortic aneurysm) without rupture: Patient with large abdominal aortic aneurysm, follow-up with recommendations by Dr. Prado. Repair canceled due to continued air leak and pneumothorax This will be readdressed as an outpatient. Not appropriate for repair at this time with current respiratory issues Status: Acute Code(s): I71.4 - Abdominal aortic aneurysm, without rupture (3) Right lower lobe pneumonia: Consolidation in the right lower lobe, question of pneumonia versus consolidation due to underlying mass on CT. Continue Levaquin. This is approximately day #9 Status: Acute Code(s): J18.9 - Pneumonia, unspecified organism (4) COPD (chronic obstructive pulmonary disease): Prednisone, pulmonary toilet. Discontinue prednisone currently. Status: Acute Code(s): J44.9 - Chronic obstructive pulmonary disease, unspecified Additional A&P Information Atrial fibrillation with RVR has had several episodes, and is now converted back to sinus rhythm. Metoprolol added and increased to 25 mg twice daily . This is controlling rhythm nicely. Aspirin 81 mg daily added. Not candidate for anticoagulation currently. Weight loss, cachexia. Discussed with dietary increasing calories Physical therapy to work with the patient Possible transfer out of ICU today. No need for laboratory tomorrow Attestations Medical Necessity Statement*: Needs continued hospital stay for close monitoring secondary to recurrent pneumothorax requiring chest tubes to suction. Coding Level of Care Code Acute Chairperson Anesthesiology for [facility] Diagnoses Pneumothorax on right J93.9 AAA (abdominal aortic aneurysm) without rupture I71.4 Right lower lobe pneumonia J18.9 COPD (chronic obstructive pulmonary disease) J44.9
[2019-03-31] MEDS: enoxaparin 40 mg/0.4 mL Syringe SUBCUT (15:49)
[2019-04-01] VITALS (26 sets, daily range): BP systolic 89–117; BP diastolic 45–69; PULSE 63–105; RESP 15–36; TEMP 36.4–36.7; O2SAT 75–100
[2019-04-01] MEDS: ipratropium-albuterol 3 mL Neb INHALATION ×3 (04:04→19:21)
--- NOTE | 2019-04-01 04:08 | PC.NURSE ---
Pt has non-blanchable redness to sacrum measuring 2cm L X 1 cm W. Educated patient on importance of repositioning. Optifoam applied over bony prominence. Repositioned on left side.
[2019-04-01 05:05] LABS: Eosinophils # 0.2 10^3/uL (0.0-0.8); Eosinophils % 1.8 %; Hematocrit 43.3 % (42.0-52.0); Hemoglobin 14.2 g/dL (11.7-16.6); Lymphocytes # 0.8 10^3/uL (0.8-4.8); Lymphocytes % 9.2 %; Mean Corpuscular HGB Conc 32.8 g/dL (30.0-36.0); Mean Corpuscular Hemoglobin 30.8 pg (28.0-34.0); Mean Corpuscular Volume 93.9 fL (80-94); Mean Platelet Volume 10.4 fL (7.4-10.4); Monocytes # 0.7 10^3/uL (0.2-0.9); Monocytes % 8.2 %; Nucleated Red Blood Cells % 0 %; Platelet Count 159 10^3/cmm (130-400); Red Blood Count 4.61 10^6/uL (4.1-5.3); Red Cell Distribution Width 13.2 % (12.1-15.1); White Blood Count 8.8 10^3/uL (4.0-10.0)
[2019-04-01 05:29] LABS: Blood Urea Nitrogen 26 mg/dL (8-23); Carbon Dioxide 28 mmol/L (22-29); Chloride 95 mmol/L (98-107); Glucose 92 mg/dL (74-106); Sodium 133 mmol/L (136-145)
[2019-04-01] MEDS: levoFLOXacin 750 mg Tablet PO (05:47)
--- NOTE | 2019-04-01 06:00 | XRR_ITS ---
PROCEDURE INFORMATION: Exam: XR Chest, 1 View Exam date and time: 04/01/2019 4:41 AM Age: 83 years old Clinical indication: Condition or disease; Other: Dual thoracic vent; Prior surgery; Surgery date: 3-7 days post-operative TECHNIQUE: Imaging protocol: XR of the chest Views: 1 view. COMPARISON: XR CHEST 03/31/2019 4:58 AM FINDINGS: Lungs: There is bibasilar airspace disease which could be due to atelectasis, pneumonia, or aspiration. Evidence of prior granulomatous disease. Pleural space: No significant change in the right pneumothorax. There is a small left pleural effusion, unchanged. Heart/Mediastinum: The heart is not enlarged. The mediastinal contours are normal. Bones/joints: No acute osseous abnormality. Soft tissues: There continues be right chest wall subcutaneous emphysema. Other findings: Two right apical drainage catheters still present. XR/XR chest 1V portable [id number] IMPRESSION: No significant change when compared to XR CHEST 03/31/2019 4:58 AM.
[2019-04-01] MEDS: polyethylene glycol 3350 Pkt 17 gm PO (08:59)
[2019-04-01] MEDS: predniSONE 10 mg Tablet PO (09:00)
[2019-04-01] MEDS: guaiFENesin 600 mg Tablet PO ×2 (09:00→18:52)
[2019-04-01] MEDS: tamsulosin 0.4 mg Capsule PO (09:00)
[2019-04-01] MEDS: sennosides-docusate Tablet 2 TAB PO ×2 (09:00→18:52)
[2019-04-01] MEDS: metoprolol tartrate 25 mg Tablet PO ×2 (09:00→18:52)
[2019-04-01] MEDS: aspirin 81 mg EC Tablet PO (09:00)
--- NOTE | 2019-04-01 09:55 | P.PN_ITS ---
Subjective Subjective: Interval history: Mr. Cool has no complaints. Here his air leak is about the same. Chest x-ray is also unchanged. Vitals/I&O/Wt Last Vital Signs Temp 97.8 F 04/01/19 05:52 Pulse 89 04/01/19 05:52 Resp 20 H 04/01/19 05:52 BP 109/53 04/01/19 05:52 Pulse Ox 97 04/01/19 05:52 03/31/19 04/01/19 04/01/19 22:59 06:59 14:59 Intake Total 120 / 720 Output Total 450 / 600 500 / 1100 Balance -450 / 0 -380 / -380 Weight last 48 hrs Weight 118 lb Weight 101 lb Physical Exam Chest: COMMONS NORMALS: negative for inspection of chest normal (Maintains right anterior and lateral subcutaneous emphysema.) Resp: AUSCULTATION: diminished lung sounds bilateral Data : 04/01/19 04:21 04/01/19 04:21 A&P Assessment and plan (1) Pneumothorax on right: Right pneumothorax with large persistent air leak I have conferred with my colleague Dr. Moe. We will discuss with pulmonary medicine, Dr. Foster, tomorrow concerning options, which may need to include consideration for surgical blebectomy and pleurodesis. This I think will be a substantial undertaking with a high risk for the later dependence, continued persistent air leak, and other complicating factors. All this must be in consideration of the very frail condition of Mr. Cool. This is a very difficult situation. Status: Acute Code(s): J93.9 - Pneumothorax, unspecified Attestations Medical Necessity Statement*: Pneumothorax with large air leak Time Spent in Patient Care: less than 15 minutes Coding Level of Care Code Acute Manager Heart Failure for [facility] Diagnoses Pneumothorax on right J93.9
--- NOTE | 2019-04-01 09:59 | PM.PN ---
Subjective Subjective: Interval history: Postop day #6 that is post dual thoracic vent placement. Large air leak continues. Overall his condition is about the same. He does appear to be comfortable. Only moderate dyspnea. Chest x-ray is unchanged. Vitals/I&O/Wt Last Vital Signs Temp 97.8 F 04/01/19 05:52 Pulse 89 04/01/19 05:52 Resp 20 H 04/01/19 05:52 BP 109/53 04/01/19 05:52 Pulse Ox 97 04/01/19 05:52 03/31/19 04/01/19 04/01/19 22:59 06:59 14:59 Intake Total 120 / 720 Output Total 450 / 600 500 / 1100 Balance -450 / 0 -380 / -380 Weight last 48 hrs Weight 118 lb Weight 101 lb Physical Exam Chest: COMMONS NORMALS: negative for inspection of chest normal (Right anterior and lateral subcutaneous emphysema is unchanged) Resp: AUSCULTATION: diminished lung sounds bilateral Data : 04/01/19 04:21 04/01/19 04:21 A&P Assessment and plan (1) Pneumothorax on right: Difficult situation given the persistent large air leak in this very frail gentleman with very bad bullous lung disease bilaterally. Our options are quite limited. We will discuss with our colleague, Dr. Foster, from pulmonary medicine tomorrow. We may have to consider substantially more invasive measures such as attempted bleb resection and pleurodesis, though I think this is fraught with high chance for complications or ultimate demise. Given the large air leak, I am doubtful that attempt at medical pleurodesis through a chest tube will be sufficient. We will wait for Dr. Foster's recommendations and then proceed from there. I have conferred with Dr. Moe. Status: Acute Code(s): J93.9 - Pneumothorax, unspecified Attestations Medical Necessity Statement*: Right pneumothorax with large air leak Time Spent in Patient Care: less than 15 minutes Coding Level of Care Code Acute Assistant Men'S Lacrosse Coach for [facility] Diagnoses Pneumothorax on right J93.9
--- NOTE | 2019-04-01 15:06 | PM.PN ---
Subjective Subjective: Interval history: Abel reports he is doing okay. Breathing okay. Pain under control. Medications: Reviewed: Yes Vitals/I&O/Wt Last Vital Signs Temp 98.1 F 04/01/19 12:00 Pulse 82 04/01/19 12:00 Resp 27 H 04/01/19 12:00 BP 95/51 04/01/19 12:00 Pulse Ox 92 04/01/19 12:00 04/01/19 04/01/19 04/01/19 06:59 14:59 22:59 Intake Total 120 / 720 600 / 600 Output Total 500 / 1100 300 / 300 Balance -380 / -380 300 / 300 Weight last 48 hrs Weight 53.524 kg Weight 45.813 kg Physical Exam Narrative: EXAM NARRATIVE: General exam no apparent distress Cardiovascular irregular, irregular Lungs clear but with diminished breath sounds bilaterally Abdomen is soft with positive bowel sounds Extremities no cyanosis clubbing or edema Data : 04/01/19 04:21 04/01/19 04:21 A&P Assessment and plan (1) Pneumothorax on right: Continues to have significant air leak. Pulmonary consultation tomorrow, to ask question if pleurodesis is an option. Overall will likely need some rehabilitation for his weakness. He was at [facility] but if he is potentially going to be discharged with thoracic vents for some time he may need long-term care hospital consideration. Discharge planning is under evaluation Status: Acute Code(s): J93.9 - Pneumothorax, unspecified (2) AAA (abdominal aortic aneurysm) without rupture: Patient with large abdominal aortic aneurysm, follow-up with recommendations by Dr. Prado. Repair canceled due to continued air leak and pneumothorax This will be readdressed as an outpatient. Not appropriate for repair at this time with current respiratory issues Status: Acute Code(s): I71.4 - Abdominal aortic aneurysm, without rupture (3) Right lower lobe pneumonia: Consolidation in the right lower lobe, question of pneumonia versus consolidation due to underlying mass on CT. Continue Levaquin. This is approximately day #10. Consider discontinuing Levaquin tomorrow Status: Acute Code(s): J18.9 - Pneumonia, unspecified organism (4) COPD (chronic obstructive pulmonary disease): Prednisone, pulmonary toilet. Discontinue prednisone currently. Status: Acute Code(s): J44.9 - Chronic obstructive pulmonary disease, unspecified Additional A&P Information Atrial fibrillation with RVR has had several episodes, and is now converted back to sinus rhythm. Metoprolol added and increased to 25 mg twice daily . This is controlling rhythm nicely. Aspirin 81 mg daily added. Not candidate for anticoagulation currently. Weight loss, cachexia. Discussed with dietary increasing calories Physical therapy to work with the patient No need for laboratory tomorrow. Repeat chest x-ray tomorrow Attestations Medical Necessity Statement*: Needs continued hospitalization for definitive treatment of right-sided pneumothorax Coding Level of Care Code Acute Staff Forester for [facility] Diagnoses Pneumothorax on right J93.9 AAA (abdominal aortic aneurysm) without rupture I71.4 Right lower lobe pneumonia J18.9 COPD (chronic obstructive pulmonary disease) J44.9
[2019-04-01] MEDS: enoxaparin 40 mg/0.4 mL Syringe SUBCUT (15:55)
[2019-04-01] MEDS: HYDROcodone-acetaminophen 5-325 mg Tablet 1 TAB PO (23:29)
[2019-04-02] VITALS (16 sets, daily range): BP systolic 95–116; BP diastolic 52–86; PULSE 68–121; RESP 15–29; TEMP 36.8–36.9; O2SAT 90–99; BMI 17.2
[2019-04-02] MEDS: levoFLOXacin 750 mg Tablet PO (05:48)
--- NOTE | 2019-04-02 05:50 | PC.NURSE ---
pt reports mouth is sore this am. tongue white an thrush like. discussed c dr ugalde . awaiting order for nystantin . rusty valdivia.
[2019-04-02] MEDS: nystatin 100,000 unit/mL UDC 5 mL 500000 UNIT PO ×5 (06:01→22:09)
--- NOTE | 2019-04-02 07:09 | XR_ITS ---
WS: [id number] CHEST XRAY TECHNIQUE: Portable chest. CLINICAL INFORMATION: Pneumothorax COMPARISON: FINDINGS: Heart: Aortic calcification. Lungs: Right thoracic catheter's. Persistent moderate right pneumothorax increased slightly from . No mediastinal shift. Small pleural effusion. Subcutaneous emphysema right lateral chest wall a nd lower neck. Subsegmental atelectasis right lung base medially and left lower lobe. Bones: Normal visualized bony structures. XR/XR chest 1V portable [id number] IMPRESSION: 1. Moderate right pneumothorax slightly increased since April 01, 2019. 2. Stable subsegmental atelectasis in the right lower lobe medially and left l ower lobe. Small left pleural effusion.
[2019-04-02] MEDS: ipratropium-albuterol 3 mL Neb INHALATION ×2 (07:12→17:48)
[2019-04-02] MEDS: tamsulosin 0.4 mg Capsule PO (08:27)
[2019-04-02] MEDS: guaiFENesin 600 mg Tablet PO ×2 (08:27→17:30)
[2019-04-02] MEDS: aspirin 81 mg EC Tablet PO (08:27)
[2019-04-02] MEDS: metoprolol tartrate 25 mg Tablet PO ×2 (08:27→17:30)
[2019-04-02] MEDS: predniSONE 10 mg Tablet PO (08:27)
[2019-04-02] MEDS: enoxaparin 40 mg/0.4 mL Syringe SUBCUT (16:41)
--- NOTE | 2019-04-02 17:26 | DCPLANNER ---
Pg 2 of IM updated and reviewed with pt. No questions, copy provided.
--- NOTE | 2019-04-02 18:10 | PC.CHAP ---
Pastoral Care Encounter/Spiritual Assessment Type of Contact [x] Declined cash management associate visit [] Patient/Family/Request visit [] Outpatient visit [] Follow-up visit [] Physician referral [] Code/Alert [] Routine visit [] Staff referral [] Actively dying [] Patient sleeping [] Family support [] [] Out of room [] Palliative care [] [] Receiving care in room [] Pre-surgical visit [] Trauma [x] Long length of stay [x] ICU visit [] Other: Relational/Emotional Strength [] Patient feels connected with others/family/visitors/staff [] Distress [] Loneliness/isolation [] Abandonment Spirituality of Patient [] Person of Simi [] Attends Sikh of their Simi [] Believes in Prayer [] Reads Bible or Islam materials [] There are Spiritual issues to be addressed Customer Account Technician Interventions [] Prayer [x] Active listening [x] Non-anxious presence [] Spiritual/emotional support [] Crisis/trauma care [] Spiritual counseling [] Bereavement support [] Provided bereavement packet [] Provided Bible/devotional materials [] Provided toy/stuffed animal, coloring book to patient or family member [x] Completed spiritual assessment [] Provided Communion [] Anointing/[place] [] Salvation [] Other: Impact on Illness or Injury [] Angry [] Fearful [] Anxious [] Often cries [] Exhaustion [] Unable to work [] Unable to attend orthodox [] Unable to walk/stand [] Unable to read [] Unable to drive [] Unable to eat/drink [] Unable to sleep [] Unable to be with family [] Other: Summary Patient declined prayer and stated he didn't need anything from the chaplains. I explained to the patient that if he did need a cash management associate for any reason that the nurses know how to reach us. Patient was visited by Customer Account Technician Black Pollack Time spent with patient 4 minutes
--- NOTE | 2019-04-02 19:36 | PM.PN ---
Subjective Subjective: Interval history: This morning patient denies chest pain, still has some mild shortness of breath, no lightheadedness, no dizziness, no nausea, no vomiting, no fevers, is a bit anxious about what the next step is in terms of his chest tubes and air leak Vitals/I&O/Wt Last Vital Signs Temp 98.2 F 04/02/19 16:00 Pulse 113 H 04/02/19 18:00 Resp 25 H 04/02/19 18:00 BP 111/57 04/02/19 18:00 Pulse Ox 99 04/02/19 18:00 04/02/19 04/02/19 04/02/19 06:59 14:59 22:59 Intake Total 500 / 1500 500 / 500 Output Total 35 / 640 200 / 200 200 / 400 Balance 465 / 860 300 / 300 -200 / 100 Weight last 48 hrs Weight 53.025 kg Weight 53.524 kg Physical Exam Const: COMMON NORMALS: no apparent distress and oriented x3 HENMT: COMMON NORMALS: normocephalic HEAD & SCALP: normocephalic Neck/C-Spine: COMMON NORMALS: no JVD Resp: COMMON NORMALS: normal respiratory effort, no retractions, no use of accessory muscles and clear to auscultation bilaterally AUSCULTATION: clear to auscultation bilaterally OTHER: 2 right thoracic vents in place, chest tubes having significant air leak Cardio: COMMON NORMALS: no JVD, regular rate, regular rhythm, S1 normal heart sound and S2 normal heart sound RATE: regular rate RHYTHM: regular rhythm HEART SOUNDS: S1 normal and S2 normal GI: COMMON NORMALS: normal to inspection, nondistended, normoactive bowel sounds, soft to palpation, non-tender, no hepatosplenomegaly, no masses and no bruits PALPATION: Yes soft and Yes no hepatosplenomegaly Extremity: COMMON NORMALS: normal capillary refill, no clubbing, cyanosis or edema, no calf tenderness and no pedal edema Neuro: COMMON NORMALS: oriented x3 Psych: COMMON NORMALS: mental status grossly normal Data : 04/01/19 04:21 04/01/19 04:21 A&P Assessment and plan (1) Pneumothorax on right: Continues to have significant air leak We will follow cardiothoracic surgery's recommendations Will likely require placement to LTAC Status: Acute Code(s): J93.9 - Pneumothorax, unspecified (2) AAA (abdominal aortic aneurysm) without rupture: Patient with large abdominal aortic aneurysm, follow-up with recommendations by Dr. Prado. Repair canceled due to continued air leak and pneumothorax This will be readdressed as an outpatient. Not appropriate for repair at this time with current respiratory issues Status: Acute Code(s): I71.4 - Abdominal aortic aneurysm, without rupture (3) Right lower lobe pneumonia: Consolidation in the right lower lobe, question of pneumonia versus consolidation due to underlying mass on CT. Last day of Levaquin Status: Acute Code(s): J18.9 - Pneumonia, unspecified organism (4) COPD (chronic obstructive pulmonary disease): Received prednisone Currently stable Status: Acute Code(s): J44.9 - Chronic obstructive pulmonary disease, unspecified (5) Atrial fibrillation: -Heart rate well controlled with metoprolol 25 twice daily -Continued aspirin 81 mg daily -Unfortunately not a candidate for anticoagulation currently Status: Acute Code(s): I48.91 - Unspecified atrial fibrillation (6) Cachexia: -Etiology unclear -Is getting nutritional shakes -PT OT Status: Acute Code(s): R64 - Cachexia Attestations Medical Necessity Statement*: Patient requires continued hospitalization due to pneumothorax, with 2 thoracic events, persistent air leak Coding Level of Care Code Acute Internet Architect for [facility] Diagnoses Pneumothorax on right J93.9 AAA (abdominal aortic aneurysm) without rupture I71.4 Right lower lobe pneumonia J18.9 COPD (chronic obstructive pulmonary disease) J44.9 Atrial fibrillation I48.91 Cachexia R64
[2019-04-02] MEDS: HYDROcodone-acetaminophen 5-325 mg Tablet 1 TAB PO (22:08)
[2019-04-03] VITALS (12 sets, daily range): BP systolic 88–124; BP diastolic 46–63; PULSE 66–104; RESP 14–32; TEMP 36.6–36.8; O2SAT 93–100; BMI 17.2
[2019-04-03] MEDS: ipratropium-albuterol 3 mL Neb INHALATION ×2 (05:51→12:47)
--- NOTE | 2019-04-03 08:23 | XR_ITS ---
WS: [id number] CHEST XRAY TECHNIQUE: Portable chest. CLINICAL INFORMATION: pneumothorax COMPARISON: FINDINGS: Heart: Normal cardiac silhouette. Lungs: Stable pleural catheters. Small right pneumothorax has decreased in size since yesterday. No m ediastinal shift. Persistent small left pleural effusion. Subcutaneous emphysema lower neck and right lateral chest wall. Subsegmental atelectasis right lower lobe medially. Bones: Normal visualized bony structures. XR/XR chest 1V portable [id number] IMPRESSION: 1. Stable pleural catheters with small right pneumothorax. This is improved si nce chest. 2. Small left pleural effusion unchanged. 3. Subsegmental atelectasis right lower lobe medially.
[2019-04-03] MEDS: guaiFENesin 600 mg Tablet PO (09:48)
[2019-04-03] MEDS: metoprolol tartrate 25 mg Tablet PO (09:48)
[2019-04-03] MEDS: aspirin 81 mg EC Tablet PO (09:48)
[2019-04-03] MEDS: tamsulosin 0.4 mg Capsule PO (09:49)
[2019-04-03] MEDS: nystatin 100,000 unit/mL UDC 5 mL 500000 UNIT PO ×2 (09:49→12:55)
--- NOTE | 2019-04-03 10:50 | PC.NURSE ---
chest tubes changed to water seal at this time. Will monitor patient closely.
--- NOTE | 2019-04-03 13:14 | PM.DCS ---
Discharge Providers Date of Admission: 03/22/19 10:19 Date of Discharge: 04/03/19 Attending Provider at Admission: Brenda Valero MD Attending Provider at Discharge: Alfred Durán MD Primary Care Provider: Ney Rea Diagnoses at Discharge Discharge Diagnosis (1) Pneumothorax on right: Status: Acute (2) AAA (abdominal aortic aneurysm) without rupture: Status: Acute (3) Right lower lobe pneumonia: Status: Acute (4) COPD (chronic obstructive pulmonary disease): Status: Acute (5) Atrial fibrillation: Status: Acute (6) Cachexia: Status: Acute Reason for Visit Reason for Visit: Reason For Visit: ABD PAIN Hospital Course Hospital Course: Abel Cool is a 83 year old male with a past medical history of COPD uses 2 L oxygen at baseline, severe bullous/emphysematous disease bilateral lungs, quit smoking more than 40 years ago, has a history of abdominal aortic aneurysm, enlarged prostate, recent history of right lower lobe pneumonia status post antibiotic treatment, currently a [facility] who presents to the emergency room due to complaints of sudden worsening of cough and shortness of breath Discharge Summary: Patient was admitted for a small 5 to 10% pneumothorax on the right, which subsequently evolved into a large pneumothorax on the right, resulting in respiratory distress, had urgent decompression, with a right thoracic vent placement by Dr. Prado cardiothoracic surgery, which was transitioned to a chest tube. Unfortunately, 48 hours after patient developed another significant pneumothorax on the right, with tension, requiring placement of a second chest tube. Eventually patient was transitioned to 2 thoracic vents placed on the right anterior chest wall. Unfortunately both thoracic events, had large air leaks throughout his admission. In addition, both thoracic vents were placed to continuous suction, as patient failed trials to waterseal, would develop episodes of respiratory distress, requiring placement on continuous suction. After thorough discussion with patient, pulmonary critical care Dr. Foster, cardiothoracic surgery Dr. Prado. Our specialist believe that given his suboptimal functional status, frailty, significant bullous disease of his lungs bilaterally, options such as bleb resection and pleurodesis would have high risk of complications, and high risk of morbidity and mortality. Our specialist favored conservative management of his right pneumothorax, which included maintaining both thoracic events to suction, for at least 6 weeks, with daily trials to waterseal would be the best course of action; and hopefully over time, his air leak should resolve, he could tolerate waterseal, with hopeful discontinuation of his thoracic vents. This was discussed with the patient, all questions answered, patient voiced understanding, agreed to proceed with conservative management. Patient was accepted at a LTAC facility in [facility], patient was transferred there on 04/03/2019. When patient is medically stable, he should follow-up with Dr. Prado as outpatient. In addition patient was found to have, a dense right lower lobe consolidation, which was initially thought to be some component of a pneumonia, after adequate antibiotic therapy, this dense consolidation persisted. Given his history of COPD, smoking history, weight loss, cachexia, there was discussion of possible bronchoscopy to evaluate for underlying neoplasm. But given his complicated medical course as above, this had to be postponed. Once patient is medically stable, can consider bronchoscopy, PET scan, and further evaluation of this dense consolidation. Patient did receive a prolonged antibiotic course for greater than 2 weeks for possible pneumonia once again, which he completed on 04/02/2019. New onset atrial fibrillation, converted to normal sinus rhythm, on metoprolol 25 twice daily, on aspirin 81 mg once daily, currently considered too a high risk to be placed on anticoagulation, but can be considered as outpatient. Currently normal sinus rhythm. Abdominal aortic aneurysm, there were initial plans on elective repair this month, but given his complicated medical course as above, this had to be delayed, currently he is deemed a high risk surgical candidate for intervention. Last imaging on 03/22/2019 showed abdominal aortic aneurysm dimensions of 4.8 x 4.7 x 6.5 cm in transverse, anterior-posterior and length, respectively and there is a large mural thrombus associated with this aneurysm. Physical Exam Const: COMMON NORMALS: no apparent distress and oriented x3 GENERAL APPEARANCE: cooperative and comfortable HENMT: COMMON NORMALS: normocephalic HEAD & SCALP: normocephalic Eye: COMMON NORMALS: PERRL, EOMs intact bilaterally and no papilledema GENERAL EYE: normal appearance of both eyes PUPIL: Yes PERRL DIRECT OPHTHALMOSCOPY: Yes no papilledema Neck/C-Spine: COMMON NORMALS: full ROM, no lymphadenopathy, no JVD and thyroid normal THYROID: thyroid normal Lymph: LYMPHATIC: no lymphadenopathy noted Chest: OTHER: 2 right thoracic vent in place Resp: COMMON NORMALS: normal respiratory effort, no retractions, no use of accessory muscles and clear to auscultation bilaterally AUSCULTATION: clear to auscultation bilaterally Cardio: COMMON NORMALS: no JVD, regular rate, regular rhythm, S1 normal heart sound, S2 normal heart sound, no gallops, no clicks and no murmurs RATE: regular rate RHYTHM: regular rhythm HEART SOUNDS: S1 normal and S2 normal GI: COMMON NORMALS: normal to inspection, nondistended, normoactive bowel sounds, soft to palpation, non-tender and no hepatosplenomegaly PALPATION: Yes soft and Yes no hepatosplenomegaly Extremity: COMMON NORMALS: normal to inspection, full ROM and no pedal edema Neuro: COMMON NORMALS: oriented x3, CN's II-XII intact bilaterally, moves all extremities and no focal motor deficits Psych: COMMON NORMALS: mental status grossly normal, thought process normal and cooperative THOUGHT PROCESS: normal thought process Discharge Data Data Completed and Pending: Completed Studies During Hospitalization Category Date Time Status CT angio abdomen 17431 Urgent Cat Scan 03/22/19 09:[address] angio chest PE protcl [id number] Urge nt Cat Scan 03/22/19 09:[address] chest w con* [id number] Routine Cat Scan 03/26/19 08:22 Completed CXRP [XR chest 1V portable [id number]] S tat Exams 03/23/19 11:31 Completed XR chest 1V eulogio ble [id number] Routine Exams 03/22/19 22:49 Completed XR chest 1V eulogio ble [id number] Routine Exams 03/23/19 06:00 Completed XR chest 1V eulogio ble [id number] Routine Exams 03/24/19 06:00 Completed XR chest 1V eulogio ble [id number] Routine Exams 03/25/19 06:55 Completed XR chest 1V eulogio ble [id number] Routine Exams 03/25/19 18:00 Completed XR chest 1V eulogio ble [id number] Routine Exams 03/26/19 06:00 Completed XR chest 1V eulogio ble [id number] Routine Exams 03/26/19 14:49 Completed XR chest 1V eulogio ble [id number] Routine Exams 03/27/19 06:27 Completed XR chest 1V eulogio ble [id number] Routine Exams 03/27/19 12:00 Completed XR chest 1V eulogio ble [id number] Routine Exams 03/28/19 06:00 Completed XR chest 1V eulogio ble [id number] Routine Exams 03/29/19 07:57 Completed XR chest 1V eulogio ble [id number] Routine Exams 03/30/19 06:00 Completed XR chest 1V eulogio ble 04394 Routine Exams 03/31/19 06:02 Completed XR chest 1V eulogio ble 94373 Routine Exams 04/01/19 06:00 Completed XR chest 1V eulogio ble [id number] Routine Exams 04/02/19 07:09 Completed XR chest 1V eulogio ble [id number] Stat Exams 03/22/19 22:33 Completed XR chest 1V eulogio ble [id number] Stat Exams 03/23/19 20:05 Completed XR chest 1V eulogio ble [id number] Stat Exams 03/23/19 20:55 Completed XR chest 1V eulogio ble [id number] Stat Exams 03/23/19 21:41 Completed XR chest 1V eulogio ble 04132 Stat Exams 03/29/19 13:09 Completed XR chest 1V eulogio ble [id number] Stat Exams 04/03/19 08:23 Completed XR chest 1V eulogio ble [id number] Urgent Exams 03/22/19 09:52 Completed XR chest 1V eulogio ble [id number] Urgent Exams 03/28/19 07:43 Completed Pending at discharge Category Date Time Status XR chest 1V eulogio ble [id number] Routine Exams 04/04/19 13:00 Ordered Vitals: Last Vital Signs Temp 97.8 F 04/03/19 10:00 Pulse 81 04/03/19 12:51 Resp 18 04/03/19 12:47 BP 108/62 04/03/19 12:00 Pulse Ox 94 04/03/19 12:47 Discharge Plan Discharge Patient Disposition: [facility] Condition: Stable Prescriptions: New hydrocodone-acetaminophen 5-325 mg Tablet 1 tab PO Q4H PRN (Reason: Moderate Pain) 15 Days Qty: 30 RF: 0 nystatin 100,000 unit/mL Suspension 500,000 unit PO QID 5 Days Qty: 100 RF: 0 Miralax 17 gram Powder In Packet 17 g PO BID 30 Days Qty: 30 RF: 0 Saline Mist 0.65 % Aerosol,[place] 1 spray nasal PRN PRN (Reason: Dryness) 30 Days Qty: 30 RF: 0 metoprolol tartrate 25 mg Tablet 25 mg PO BID 30 Days Qty: 60 RF: 0 Continued Symbicort 160-4.5 mcg/actuation HFA aerosol inhaler 2 puff INHALATION BID RF: 0 Tylenol 325 mg Tablet 650 mg PO Q6H PRN (Reason: Pain) RF: 0 ipratropium-albuterol 0.5 mg-3 mg(2.5 mg base)/3 mL Solution For Nebulization 3 ml INHALATION Q4H PRN (Reason: Shortness Of Breath) RF: 0 Milk of Magnesia 400 mg/5 mL Suspension 30 ml PO DAILY PRN (Reason: Constipation) RF: 0 Dulcolax (bisacodyl) 10 mg Suppository 10 mg MA DAILY PRN (Reason: Constipation) RF: 0 Fleet Enema 19-7 gram/118 mL Enema 118 ml MA DAILY PRN (Reason: Constipation) RF: 0 Dulcolax (bisacodyl) 5 mg Tablet,Delayed Release (Dr/Ec) 10 mg PO DAILY PRN (Reason: Constipation) RF: 0 aspirin 81 mg Tablet,Delayed Release (Dr/Ec) 81 mg PO DAILY 30 Days Qty: 30 RF: 0 tamsulosin 0.4 mg Capsule 0.4 mg PO DAILY 30 Days Qty: 30 RF: 0 guaifenesin [Mucinex] 600 mg Tablet Extended Release 12hr 600 mg PO BID 30 Days Qty: 60 RF: 0 Discontinued prednisone 10 mg tablet 10 mg PO DIRECTED Qty: 53 RF: 0 Discharge Orders: Discharge Order (Routine); Ordered 04/03/19 Ordered By: Alfred Durán Referrals: Ney Rea [Primary Care Provider] - Discharge Diet: Advance as tolerated Discharge Activity: Resume usual activity Activity Restrictions/Additional Instructions: -For dual thoracic vent, patient has failed 2 trials of waterseal, continue wall suction, daily trials of waterseal, possibly will require up to 6 weeks of continuous suctioning -For patient's dense right lower lobe consolidation, possible malignant process, will require outpatient work-up including follow-up with oncology and PET scan -For patient's abdominal aortic aneurysm, deemed too high high risk for surgery, continue to monitor -For patient's COPD, inhalers as prescribed -For patient's atrial fibrillation, continue metoprolol 25 twice daily, on aspirin 81 mg, currently in normal sinus rhythm, deemed to have a high risk for anticoagulation currently, but can be reassessed as outpatient -Follow-up with Dr. 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
--- NOTE | 2019-04-03 13:24 | PC.CHAP ---
Patient did not want a visit
[2019-04-03] MEDS: HYDROcodone-acetaminophen 5-325 mg Tablet 1 TAB PO (15:30)
--- NOTE | 2019-04-03 15:38 | PC.NURSE ---
Patient report called to Ester Cabrera RN at [facility]. Patient belongings gathered and patient assisted onto [facility]. Patient stable at time of departure.
== END 2019-04-03 16:06 | DRG 199 ==
LOC: ER 14:07 → ICU 16:00
PROVIDERS: Internal Medicine; Thoracic Surgery (Cardiothoracic Vascular Surgery); Admitting Provider Family Medicine; Emergency Provider Family Medicine; Family Provider Internal Medicine; PCP Internal Medicine; Visit Provider Family Medicine
PROC: 0B9P30Z Drainage of Left Pleura with Drainage Device, Percutaneous Approach (ICD-10-PCS; CPT 32551; principal; 2019-03-26 14:30)
DX: J93.9 Pneumothorax, unspecified (principal); J18.9 Pneumonia, unspecified organism; E46 Unspecified protein-calorie malnutrition; Z68.1 Body mass index [BMI] 19.9 or less, adult; R64 Cachexia; I71.4 Abdominal aortic aneurysm, without rupture; J43.9 Emphysema, unspecified; J95.812 Postprocedural air leak; Z85.828 Personal history of other malignant neoplasm of skin; N40.0 Benign prostatic hyperplasia without lower urinary tract symptoms; Z87.891 Personal history of nicotine dependence; I48.91 Unspecified atrial fibrillation; Z99.81 Dependence on supplemental oxygen; Z79.82 Long term (current) use of aspirin
CPT/HCPCS: 12345; 36415; 45915; 71045; 71260; 71275; 74175; 80048; 80053; 81003; 83735; 85025; 85610; 85730; 93005; 94640; 96372; 96375; 97110; 97163; 97530; 99282; A4222; A9270; J0282; J1650; J1956; J2001; J2060; J2270; J2405; J3010; J3490; J7030; J7040; J7060; J7512; Q9967

== ENCOUNTER 2019-05-26 07:56 | Emergency (ER) | payer SELFPAY ==
[2019-05-26 07:57] VITALS: BP 118/15; PULSE 110; RESP 40; O2SAT 80; BMI 17.7
--- NOTE | 2019-05-26 07:57 | ED_ITS ---
Entered by Salina Damon, acting as scribe for HPI - CPR General: Chief Complaint: Cardiac Arrest/CPR Stated Complaint: Resp arrest/CPR Time Seen by Provider: 05/26/19 08:13 History of Present Illness: HPI narrative: 83-year-old male pt presents with CPR in progress. Ambulance arrived on scene and he was conscious at the time and let them know he wished to be a full code. Upon arrival in the ED pulse was not regained. Review of Systems General: Reports: other (unable to obtain) PFSH ED PFSH: Social History Smoking and tobacco status: unknown if ever smoked Physical Exam Chest: OTHER: Patient arrived in cardiac arrest Resp: OTHER: No respiratory effort Course ED course: See code flow sheet. We are not able to establish spontaneous circulation. Patient was in PEA on arrival and later pulse checks was in asystole with occasional some very small amounts of electrical activity but nothing sustained. On ultrasound there is no cardiac activity noted correlating with asystole on the monitor. Patient had extended downtime of 25 minutes in PEA or asystole. Resuscitative efforts stopped. Reviewing history patient has a history of abdominal aortic aneurysm. Suspect he may have ruptured which would explain his sudden deterioration in the presence of EMS. Discussed with the family they were quite upset they did not wish to see the patient in the emergency room. They did give us a number to call but they left, they had no idea and they did not wish to stay in the hospital discussed with the nurse supervisor dials on making final arrangements. Will contact them by phone later this morning. Information given to the housekeeping supervisor hotel. Vital Signs: Vital signs: Vital Signs Pulse Rate 110 H 05/26/19 07:57 Respiratory Rate 40 H 05/26/19 07:57 Blood Pressure 118/15 05/26/19 07:57 Pulse Oximetry 80 L 05/26/19 08:29 Discharge Plan Discharge Patient Disposition: Clinical Impression: Cardiac arrest, Abdominal aortic aneurysm (AAA) Interventions: ED Discharge Assessment Last Done: 05/26/19 08:42 Discharge Date/Time: 05/26/19 09:03 Probable Cause of Probable cause of : Cardiac arrest Coding Level of Care Code ED Precision Layout Worker for Esperanza Corbin The documentation recorded by the scribe, Salina Damon, accurately reflects the service I personally performed and the decisions made by Darrion quiñones Curtis L, DO May 26, 2019 07:56
--- NOTE | 2019-05-26 08:13 | PC.NURSE ---
CPR Per EMS, pt was gasping for breath upon EMS arrival, stating he was not a DNR and he wanted intubated with everything done. Pt then arrested in presence of EMS. Pt arrived to ED at 0756 via ambulance with CPR in progress, pt was intubated with 8.0 tube, 25cm at the lip, ambu-bag ventilation in progress. finishing range supervisor and respiratory notified of pt imminent arrival, and present upon pt arrival to ED. Pt was assisted to room bed, CPR continued, patient placed on Zoll showing PEA upon pulse check. See cleaner housekeeping code sheet for times of pulse checks. Epinephrine was administered by EMS x3 doses and bicarb x1 dose BODY MAKER. Second IV started in right AC upon pt arrival to department. Epinephrine was administered x3 doses in ED at 0757, 0800, and 0803, pt in PEA during duration of visit. US was used to analyze cardiac activity, and at 0805 pt was pronounced by Dr Maier. Paper Gluing Operator was notified of at 0810. Family arrival at approx [address] notified of by Dr Maier.
[2019-05-26 08:29] VITALS: O2SAT 80
== END 2019-05-26 09:03 | disposition expired ==
PROVIDERS: Emergency Provider Family Medicine
DX: I71.4 Abdominal aortic aneurysm, without rupture (principal); I46.8 Cardiac arrest due to other underlying condition
CPT/HCPCS: 12345; 99283; J0171